=== PATIENT | male | born 1975 | race Caucasian/White ===

== ENCOUNTER 2019-04-18 01:07 | Emergency (ER) | payer MEDICARE, OTHER, SELFPAY ==
[2019-04-18 01:16] VITALS: BP 141/97; PULSE 63; RESP 18; TEMP 37.2; O2SAT 97; BMI 61.7
--- NOTE | 2019-04-18 01:28 | HMH.EDSKAF ---
ED Disposition Clinical Impression: Cellulitis Qualifiers: Site of cellulitis: extremity Site of cellulitis of extremity: lower extremity Laterality: left Qualified Code(s): L03.116 - Cellulitis of left lower limb Obesity Qualifiers: Obesity type: due to excess calories Obesity classification: adult class 3 (BMI >= 40) Serious obesity comorbidity presence: with serious comorbidity Body mass index: BMI 60.0-69.9 Qualified Code(s): E66.01 - Morbid (severe) obesity due to excess calories; Z68.44 - Body mass index (BMI) 60.0-69.9, adult Disposition: Home, Self-Care Condition on Discharge: Good Instructions: DI for Cellulitis -- Adult Additional Instructions: keep clean and see pcp for follow up Prescriptions: Mupirocin [Bactroban 2% Ointment 22gm tube] 1 applicatio TP BID #1 tube cephALEXin [Keflex 500mg Cap] 500 mg PO TID #30 cap Referrals: Mariam Ortega MD [Primary Care Provider] - - Critical Care Critical Care Time: No Attestation: On , the high probability of a clinically significant, sudden or life threatening deterioration of the following system(s) required my full and direct attention, intervention and personal management. The time I documented below is in addition to time spent performing reported procedures but includes the following listed in this critical care notation. Medical Decision Making - Medical Records Medical records reviewed: Yes: I reviewed the patient's medical records. - Michael Inquiry Pt receiving controlled substance: No Vital Signs: 04/18/19 01:16 Temperature 98.9 F Temperature Source Oral Pulse Rate [Right] 63 Respiratory Rate 18 Blood Pressure [Right Arm] 141/97 H Blood Pressure Mean [Right Arm] 111 Blood Pressure Source [Right Arm] Automatic Cuff Blood Pressure Position [Right Arm] Sitting 02 Sat by Pulse Oximetry 97 Oxygen Delivery Method Room Air Skin/Abscess/FB HPI - General Chief complaint: Extremity Problem,Nontraumatic Stated complaint: Splinter in left foot Time Seen by Provider: 04/18/19 01:28 Mode of Arrival: Ambulatory Source of Information: Patient, Medical Record Limitations: No Limitations Description of Symptoms (Recalled from ER Triage Doc. by RN): pt has an open area approx 0.25 mm on left medial foot, no forein objects noted - History of Present Illness HPI narrative: tender red area on lt foot -no def sphlinter known by pt MD complaint: other (small reddened area ) Tetanus up to date: yes Location: L foot Severity: moderate Associated symptoms: denies other symptoms Treatments prior to arrival: none - Related Data Home Medications Medication Instructions Recorded Confirmed Propranolol HCl [Propranolol HCl 160 mg PO DAILY 03/04/18 01/21/19 ER] Previous Rx's Medication Instructions Recorded Mupirocin [Bactroban 2% Ointment 1 applicatio TP BID #1 tube 04/18/19 22gm tube] cephALEXin [Keflex 500mg Cap] 500 mg PO TID #30 cap 04/18/19 Allergies Allergy/AdvReac Type Severity Reaction Status Date / Time guaifenesin [From Robitussin] Allergy Verified 01/14/19 04:33 pseudoephedrine Allergy Verified 01/14/19 04:33 [facility] History - Hepatitis A Screen Drug use history?: No High risk sexual behaviors?: No History of sexually transmitted infection?: No Currently employed?: No Childcare worker?: No Do you have indoor plumbing?: Yes Do you have electricity?: Yes Attestation statement:: This patient has been screened for Hepatitis A risk factors. I have reviewed the patient's past medical history: Yes Medical History: Denies:: Cancer, Diabetes Mellitus Type 1, Diabetes Mellitus Type 2, MRSA Other Medical History: Reports: Arthritis Amputation: No Fractures: No Comment: Vasectomy - Social History Smoking Status: Current every day smoker Tobacco Type: smokeless tobacco Alcohol Intake: never Alcohol Intake Frequency:: a few times a month Occupational Status: unemployed Household Members: sign
--- NOTE | 2019-04-18 01:32 | ED_ITS ---
ED Disposition Clinical Impression: Cellulitis Qualifiers: Site of cellulitis: extremity Site of cellulitis of extremity: lower extremity Laterality: left Qualified Code(s): L03.116 - Cellulitis of left lower limb Obesity Qualifiers: Obesity type: due to excess calories Obesity classification: adult class 3 (BMI >= 40) Serious obesity comorbidity presence: with serious comorbidity Body mass index: BMI 60.0-69.9 Qualified Code(s): E66.01 - Morbid (severe) obesity due to excess calories; Z68.44 - Body mass index (BMI) 60.0-69.9, adult Disposition: Home, Self-Care Condition on Discharge: Good Instructions: DI for Cellulitis -- Adult Additional Instructions: keep clean and see pcp for follow up Prescriptions: Mupirocin [Bactroban 2% Ointment 22gm tube] 1 applicatio TP BID #1 tube cephALEXin [Keflex 500mg Cap] 500 mg PO TID #30 cap Referrals: Mariam Ortega MD [Primary Care Provider] - - Critical Care Critical Care Time: No Attestation: On , the high probability of a clinically significant, sudden or life threatening deterioration of the following system(s) required my full and direct attention, intervention and personal management. The time I documented below is in addition to time spent performing reported procedures but includes the following listed in this critical care notation. Medical Decision Making - Medical Records Medical records reviewed: Yes: I reviewed the patient's medical records. - Michael Inquiry Pt receiving controlled substance: No Vital Signs: 04/18/19 01:16 Temperature 98.9 F Temperature Source Oral Pulse Rate [Right] 63 Respiratory Rate 18 Blood Pressure [Right Arm] 141/97 H Blood Pressure Mean [Right Arm] 111 Blood Pressure Source [Right Arm] Automatic Cuff Blood Pressure Position [Right Arm] Sitting 02 Sat by Pulse Oximetry 97 Oxygen Delivery Method Room Air Skin/Abscess/FB HPI - General Chief complaint: Extremity Problem,Nontraumatic Stated complaint: Splinter in left foot Time Seen by Provider: 04/18/19 01:28 Mode of Arrival: Ambulatory Source of Information: Patient, Medical Record Limitations: No Limitations Description of Symptoms (Recalled from ER Triage Doc. by RN): pt has an open area approx 0.25 mm on left medial foot, no forein objects noted - History of Present Illness HPI narrative: tender red area on lt foot -no def sphlinter known by pt MD complaint: other (small reddened area ) Tetanus up to date: yes Location: L foot Severity: moderate Associated symptoms: denies other symptoms Treatments prior to arrival: none - Related Data Home Medications Medication Instructions Recorded Confirmed Propranolol HCl [Propranolol HCl 160 mg PO DAILY 03/04/18 01/21/19 ER] Previous Rx's Medication Instructions Recorded Mupirocin [Bactroban 2% Ointment 1 applicatio TP BID #1 tube 04/18/19 22gm tube] cephALEXin [Keflex 500mg Cap] 500 mg PO TID #30 cap 04/18/19 Allergies Allergy/AdvReac Type Severity Reaction Status Date / Time guaifenesin [From Robitussin] Allergy Verified 01/14/19 04:33 pseudoephedrine Allergy Verified 01/14/19 04:33 [facility] History - Hepatitis A Screen
[2019-04-18 01:39] VITALS: BP 142/78; PULSE 63; RESP 18; TEMP 36.8; O2SAT 98
== END 2019-04-18 01:41 | disposition home or self-care (01) ==
PROVIDERS: Emergency Provider Emergency Medicine; PCP Internal Medicine
DX: L03.116 Cellulitis of left lower limb (principal); E66.01 Morbid (severe) obesity due to excess calories; Z68.44 Body mass index [BMI] 60.0-69.9, adult; F17.210 Nicotine dependence, cigarettes, uncomplicated
CPT/HCPCS: 99281

== ENCOUNTER → 2021-05-23 09:30 | Outpatient (POV) | payer MEDICARE, OTHER, SELFPAY | PROVIDERS: Visit Provider Otolaryngology | DX: Z00.00 Encounter for general adult medical examination without abnormal findings (principal) ==

== ENCOUNTER 2021-06-01 20:11 | Emergency (ER) | payer MEDICARE, OTHER, SELFPAY ==
[2021-06-01 20:26] VITALS: BP 165/100; PULSE 79; RESP 18; O2SAT 93; BMI 61.7
[2021-06-01 20:32] VITALS: BP 151/87; PULSE 81; RESP 22; O2SAT 99; BMI 61.5
--- NOTE | 2021-06-01 20:39 | XR_ITS ---
PROCEDURE INFORMATION: Exam: XR Left Tibia and Fibula Exam date and time: 06/01/2021 8:39 PM Age: 45 years old Clinical indication: Patient HX: Left lower leg pain for 4 days in an extremely large patient. TECHNIQUE: Imaging protocol: XR Left tibia and fibula. Views: 2 views. COMPARISON: CR ANKCMLT XR ankle LT min 3V 01/14/2019 4:37 AM FINDINGS: Bones/joints: Enthesophytes seen at the Achilles insertion. Mild osteophytosis in the knee, partially imaged. Slight subluxation at the tibiotalar joint on the view provided. Soft tissues: Normal. IMPRESSION: Slight subluxation at the tibiotalar joint. Recommend ankle series for better evaluation.
--- NOTE | 2021-06-01 20:46 | HMH.EDUTC ---
[facility] [place] Clinical Impression: Left leg pain Disposition: Home, Self-Care Condition on Discharge: Good Instructions: DI for Leg Pain Additional Instructions: *weight bearing as tolerated *RICE, Rest the extremity, Ice 15-20 minutes 3-4 times daily, Compress- wear the carlos wrap as discussed as much as possible to help reduce swelling and pain, Elevate the extremity when at rest *Carlos wrap is for support and help control swelling, use it except in the shower. Be sure that is not to tight but not to loose either *Elevate when resting *Ibuprofen every 6-8 hours as needed for pain an inflammation. If need something more can take Tylenol in between doses of Ibuprofen to help Immediately follow up with your family doctor for new or worsening of symptoms, or no noticeable improvement over the next 3-5 days Follow up with your Family Doctor for more extensive work up and evaluation and routine blood work like you should be having regularly to monitor your overall health Return if needed Straight to ER if any life threatening symptoms Referrals: Mariam Ortega MD [Primary Care Provider] - As needed Time of Disposition: 21:15 Medical Decision Making - Michael Inquiry Pt receiving controlled substance: No Michael was queried for this patient: No Vital Signs: 06/01/21 20:26 06/01/21 20:32 06/01/21 21:17 Temperature 98 F Pulse Rate 81 Pulse Rate [Right Brachial] 79 81 Respiratory Rate 18 22 18 Blood Pressure 151/87 H Blood Pressure [Right Arm] 165/100 H 151/87 H Blood Pressure Mean [Right Arm] 121 108 Blood Pressure Position [Right Arm] Sitting 02 Sat by Pulse Oximetry 93 L 99 Oxygen Delivery Method Room Air - Radiology Data #1 Image(s): Tib/Fib Image Reviewed: Yes I reviewed the patient's radiology image Preliminary Findings: No Fracture Seen IMPRESSION: Slight subluxation at the tibiotalar joint. Recommend ankle series for better evaluation. #2 Image(s): Ankle Image Reviewed: Yes I have reviewed radiologist's interpretation IMPRESSION: Normal alignment of the ankle mortise. Finding on prior was likely projectional. Medical Decision Narrative: Discussed with patient about out patient order for Venous Doppler and patient declined States that he does not have a history of DVT and he wanted to get it checked to make sure he didnt hurt it somehow and plans on calling his PCP in the morning for appointment Patient educated on importance on making sure to see PCP on regular bases for labs and health screening to monitor his health and patient verbalized understanding Patient still denies known injury states that pain in front of lower leg just started a couple days ago and hurts some with walking and some with rest [facility] [place] - General Stated complaint: numbness left leg Time Seen by Provider: 06/01/21 20:47 Mode of Arrival: Ambulatory Source of Information: Patient Limitations: No Limitations Description of Symptoms (Recalled from Triage Doc. by RN): pt c/o of pain, tingling and numbness down his L knee to tib/fib area. pt HEENT Symptoms (Recalled from RN notes): No Resp Symptoms (Recalled from RN notes): No Skin Symptoms (Recalled from RN notes): No MS Symptoms (Recalled from RN notes): Yes (L below the knee pain described as tooth ache ) Functional Status (Recalled from RN notes): na - History of Present Illness Provider Complaint: Patient states that for the last 3-4 days he has been having achy like pain in his left miguel area that is worse when he tries to lay down State that when he puts the leg up he has a achy like pain that feels like it jerks at times States that he is unsure if he may have done something to hurt it or not State that he wanted to come in and get it xrayed to make sure he didnt do something to hurt it States that he has been walking on it ok but still hurts on and off Denies history of DVT - Related Data Home Medications Medication Instructions Jeovany
[2021-06-01 21:17] VITALS: BP 151/87; PULSE 81; RESP 18; TEMP 36.6
--- NOTE | 2021-06-01 21:20 | XR_ITS ---
PROCEDURE INFORMATION: Exam: XR Left Ankle Exam date and time: 06/01/2021 9:20 PM Age: 45 years old Clinical indication: Ankle; Patient HX: Very large patient with left lower leg pain for 4 days. No known injury. ; Additional info: Recommended by radiologist TECHNIQUE: Imaging protocol: XR Left ankle. Views: 3 or more views. COMPARISON: CR ANKCMLT XR ankle LT min 3V 01/14/2019 4:37 AM FINDINGS: Bones/joints: Ankle mortise is well aligned. Mild degenerative changes noted. No fracture or malalignment. Enthesophytes seen at the Achilles attachment. Soft tissues: Mild soft tissue swelling IMPRESSION: Normal alignment of the ankle mortise. Finding on prior was likely projectional.
== END 2021-06-01 21:48 | disposition home or self-care (01) ==
PROVIDERS: Emergency Provider Nurse Practitioner; PCP Internal Medicine
DX: M79.662 Pain in left lower leg (principal)
CPT/HCPCS: G0463; 73590; 73610; 99202

== ENCOUNTER → 2021-06-20 11:00 | Outpatient (POV) | payer MEDICARE, OTHER, SELFPAY | PROVIDERS: Visit Provider Dermatology | DX: Z00.00 Encounter for general adult medical examination without abnormal findings (principal) ==

== ENCOUNTER 2021-08-24 13:54 | Emergency (ER) | payer MEDICARE, OTHER, SELFPAY ==
--- NOTE | 2021-08-24 14:43 | XR_ITS ---
PROCEDURE: XR CHEST 2V CLINICAL HISTORY: cough COMPARISON: CR [id number] XR chest portable from 12/19/2018 CR XR CHEST 2V from 06/22/2019 FINDINGS: The cardiomediastinal silhouette and pulmonary vascularity are within normal limits. The lungs are clear without infiltrates, suspicious nodules, or pleural effusions. No acute bony abnormalities. IMPRESSION: No acute findings. Dictated by: Simba Molina MD 08/24/2021 16:07 Simba Molina MD in OV 08/24/2021 16:07
[2021-08-24 14:45] VITALS: BP 147/83; PULSE 78; RESP 18; TEMP 37.1; O2SAT 93; BMI 73.9
--- NOTE | 2021-08-24 14:51 | HMH.EDUTC ---
[facility] Disposition Clinical Impression: Cough Disposition: Home, Self-Care Condition on Discharge: Good Instructions: Cough Additional Instructions: No sign of a bacterial infection. Likely viral. Viruses can take 7-14 days to run their course. Nasal saline and bulb syringe or nose Tamela to remove nasal drainage to help with nasal congestion. Hard to eat, drink, sleep with nasal congestion so important to keep this cleaned out. Monitor temp. Tylenol or Motrin as needed for pain or fever Encourage fluids, water, Gatorade, Powerade, Pedialyte if infant/toddler/child Warm salt water gargles Warm fluids Sore throat lozenges Sleep elevated Humidifier/vaporizer Follow-up immediately for new or worsening symptoms or no noticeable improvement over the next 48-72 hours. Referrals: Provider,Referral, MD [Primary Care Provider] - Time of Disposition: 15:20 Medical Decision Making - Michael Inquiry Pt receiving controlled substance: No Vital Signs: 08/24/21 14:45 Temperature 98.8 F Temperature Source Oral Pulse Rate [Left Radial] 78 Respiratory Rate 18 Blood Pressure [Left Arm] 147/83 H Blood Pressure Mean [Left Arm] 104 Blood Pressure Source [Left Arm] Automatic Cuff Blood Pressure Position [Left Arm] Sitting 02 Sat by Pulse Oximetry 93 L Oxygen Delivery Method Room Air Orders (Tests/Meds): ORDERS Category Date Time Status Chest XR 2 view (NOT portable) [XR chest 2V] Stat Exams 08/24/21 14:43 Taken - Radiology Data #1 Image(s): Chest Image Reviewed: Yes I reviewed the patient's radiology image Preliminary Findings: Normal/NAD [facility] HPI - General Chief complaint: [facility] Stated complaint: wants lungs checked for pnuemomia Time Seen by Provider: 08/24/21 14:51 Mode of Arrival: Ambulatory Source of Information: Patient Limitations: No Limitations Description of Symptoms (Recalled from Triage Doc. by RN): Pt states When i use my ceiling fan, my lungs hurt. When I don't use it, they don't. I want to make sure I don't have walking pneumonia . HEENT Symptoms (Recalled from RN notes): No Resp Symptoms (Recalled from RN notes): Yes (wants checked for pneumonia) Skin Symptoms (Recalled from RN notes): No MS Symptoms (Recalled from RN notes): No Functional Status (Recalled from RN notes): n/a - History of Present Illness Provider Complaint: 46 yr old male presnets for xray to r/o walking pneumonia. pt states dry cough. pt states his lungs hurt when he uses his celing fan - Related Data Home Medications Medication Instructions Recorded Confirmed Propranolol HCl [Propranolol HCl 160 mg PO DAILY 03/04/18 06/22/19 ER] Previous Rx's Medication Instructions Recorded ondansetron HCL [Zofran 8mg Tab] 8 mg PO TID 3 Days #10 tab 08/04/19 Allergies Allergy/AdvReac Type Severity Reaction Status Date / Time guaifenesin [From Robitussin] Allergy Verified 06/22/19 22:15 pseudoephedrine Allergy Verified 06/22/19 22:15 - Worker's Comp Is this a Worker's Comp case?: No [facility] History - Hepatitis A Screen Drug use history?: No High risk sexual behaviors?: No History of sexually transmitted infection?: No Currently employed?: No Childcare worker?: No Do you have indoor plumbing?: Yes Do you have electricity?: Yes Attestation statement:: This patient has been screened for Hepatitis A risk factors. I have reviewed the patient's past medical history: Yes Medical History: Denies:: Cancer, Diabetes Mellitus Type 1, Diabetes Mellitus Type 2, MRSA Other Medical History: Reports: Arthritis Amputation: No Fractures: No Comment: Vasectomy - Social History Smoking Status: Never smoker Tobacco Type: smokeless tobacco Alcohol Intake: current Alcohol Intake Frequency:: a few times a month Occupational Status: unemployed, disabled Housing: house Household Members: significant other Family Hx:: Cancer ROS Obtained: Yes Systems reviewed as appropriate & no additional co
[2021-08-24 15:30] VITALS: BP 147/83; PULSE 78; RESP 18; TEMP 37.1; O2SAT 93
== END 2021-08-24 15:30 | disposition home or self-care (01) ==
PROVIDERS: Emergency Provider Nurse Practitioner Family
DX: R07.89 Other chest pain (principal); R05.8 Other specified cough
CPT/HCPCS: G0463; 71046; 99202

== ENCOUNTER → 2022-04-17 08:19 | Outpatient (CLI) | payer MEDICARE, OTHER, SELFPAY ==
--- NOTE | 2022-04-17 08:24 | XR_ITS ---
FINAL REPORT CLINICAL HISTORY: Nasal problems..broke nose 15 years ago FINDINGS: FACIAL BONES Three views were obtained. There is no acute fracture or dislocation. No soft tissue abnormality is identified. IMPRESSION: No acute process. Reviewed, Interpreted and Dictated by Roque Tovar III, MD Transcribed by Funmi Warren Authenticated and [facility]
[2022-04-17 09:20] LABS: Basophils # 0.1 K/mm3 (0-0.2); Basophils % 1.1 % (0.1-2.0); Eosinophils # 0.4 K/mm3 (0.0-0.4); Hematocrit 50.2 % (42.0-52.0); Hemoglobin 16.8 g/dL (14.1-18.0); Lymphocytes # 2.2 K/mm3 (0.7-4.5); Mean Corpuscular HGB Conc 33.5 g/dL (31.8-35.4); Mean Corpuscular Hemoglobin 30.4 pg (27.0-31.2); Mean Corpuscular Volume 90.8 fl (80-94); Mean Platelet Volume 7.7 fl (7.4-10.4); Monocytes # 0.6 K/mm3 (0.1-1.0); Monocytes % 6.6 % (1.7-9.3); Neutrophils # 5.5 K/mm3 (1.8-7.8); Neutrophils % 63.3 % (37.0-80.0); Platelet Count 282 K/mm3 (142-424); Red Blood Count 5.53 M/mm3 (4.60-6.20); Red Cell Distribution Width 14.5 % (11.5-17.5); White Blood Count 8.7 K/mm3 (4.8-10.8)
[2022-04-17 10:07] LABS: Chloride 102 mmol/L (98-107); Potassium 4.3 mmoL/L (3.5-5.1); Sodium 138 mmol/L (136-145)
[2022-04-17 10:09] LABS: Blood Urea Nitrogen 12 mg/dl (9-20); Estimated Glomerular Filt Rate 80 ml/min (>60); GFR (African American) 97 ML/MIN (>60)
[2022-04-17 10:10] LABS: Alanine Aminotransferase 35 U/L (12-78); Albumin/Globulin Ratio 1.3 (1.1-1.8); Alkaline Phosphatase 105 U/L (38-126); Anion Gap 10.3 mEq/L (5-15); Aspartate Amino Transferase 41 U/L (17-59); Bilirubin,Total 0.6 mg/dl (0.2-1.3); Carbon Dioxide 30 mmol/L (22.0-30.0); Cholesterol 171 mg/dl (140-200); Globulin 3.1 g/dL (1.3-3.2); Glucose 135 mg/dl (74-100); Total Protein,Serum 7.1 g/dl (6.3-8.2); Triglycerides 139 mg/dl (30-150); VLDL Cholesterol 28 mg/dL (0-40)
[2022-04-17 10:11] LABS: Chol/HDL Ratio 5.3 (1-3.5); HDL Cholesterol 32 mg/dl (40-60)
[2022-04-17 10:21] LABS: Direct LDL Cholesterol 107.43 mg/dL (100-129)
[2022-04-17 10:28] LABS: T4 (Thyroxine) 9.8 ug/dl (5.53-11.0)
[2022-04-17 10:41] LABS: Thyroid Stimulating Hormone 3.57 uIU/mL (0.465-4.68)
[2022-04-17 10:44] LABS: 25-OH Vitamin D, Total 14.3 ng/mL (30-100)
== END ==
PROVIDERS: PCP Nurse Practitioner Family; Visit Provider Nurse Practitioner Family
DX: M95.0 Acquired deformity of nose (principal); E66.01 Morbid (severe) obesity due to excess calories; N18.9 Chronic kidney disease, unspecified; R60.9 Edema, unspecified; Z68.44 Body mass index [BMI] 60.0-69.9, adult; E55.9 Vitamin D deficiency, unspecified
CPT/HCPCS: 70150; 80053; 80061; 82306; 84436; 84443; 85025

== ENCOUNTER 2022-08-15 12:54 | Emergency (ER) | payer MEDICARE, OTHER, SELFPAY ==
[2022-08-15 12:54] VITALS: BP 124/71; PULSE 76; RESP 18; TEMP 36.7; O2SAT 95; BMI 74.6
--- NOTE | 2022-08-15 12:55 | XR_ITS ---
FINAL REPORT CLINICAL HISTORY: rib pain COMPARISON: August 24, 2021 FINDINGS: Two views of the chest were obtained. The heart size and pulmonary vascularity are within normal limits. The mediastinum is normal. No acute pulmonary abnormality is identified. There is no pneumothorax. The bony thorax is intact. IMPRESSION: No active cardiopulmonary disease. Reviewed, Interpreted and Dictated by Roque Tovar III, MD Transcribed by Nancy Taylor Authenticated and [facility]
--- NOTE | 2022-08-15 12:55 | HMH.EDGENADL ---
Discharge Plan Disposition Patient Disposition: Home, Self-Care Condition: Good Prescriptions Prescriptions: New ibuprofen 600 mg tablet 600 mg PO Q6H PRN (Reason: pain) Qty: 30 0RF No Action triamcinolone acetonide 0.1 % cream 1 applic topical BID Qty: 15 0RF hydrochlorothiazide 25 mg tablet 25 mg PO DAILY Qty: 30 2RF fluticasone propionate [Flonase Allergy Relief] 50 mcg/actuation spray,suspension 1 spray NS BID Qty: 16 3RF Rx Instructions: administer into each nostril azelastine 205.5 mcg (0.15 %) spray,non-aerosol 1 spray NS BID Qty: 30 3RF Rx Instructions: administer into each nostril cholecalciferol (vitamin D3) 1,250 mcg (50,000 unit) tablet 1,250 mcg PO WEEKLY Qty: 7 2RF cholecalciferol (vitamin D3) 50 mcg (2,000 unit) capsule 50 mcg PO DAILY Qty: 30 4RF Referrals Follow up/Referrals: Ranjit Ibarra APRN [Primary Care Provider] - See instructions Clinical Impressions Clinical Impression: Acute chest wall pain Instructions Patient Instructions: DI for Costochondritis, Ibuprofen Discharge ED Provider: Matthew [facility] Adult HPI General Chief complaint: PAIN Stated complaint: Lt rib pain Time Seen by Provider: 08/15/22 12:55 History of Present Illness HPI narrative: 47-year-old male presents with left chest wall pain after stretching as he got up from bed. Stated he felt a pop and had pain subsequently, denies any shortness of breath, denies any other neck or back pain, nausea, vomiting, diaphoresis or any other symptoms. Did not attempt any treatment at home for the symptoms thus far. He states he presented to the emergency department to make sure he did not break a rib Related Data Previous Rx's Medication Instructions Recorded cholecalciferol (vitamin D3) 1,250 1,250 mcg PO WEEKLY #7 tabs 04/18/22 mcg (50,000 unit) tablet cholecalciferol (vitamin D3) 50 50 mcg PO DAILY #30 caps 04/18/22 mcg (2,000 unit) capsule azelastine 205.5 mcg (0.15 %) 1 spray intranasal BID #30 mL 05/01/22 nasal spray fluticasone propionate 50 1 spray intranasal BID #16 grams 05/01/22 mcg/actuation nasal spray,suspension (Flonase Allergy Relief) hydrochlorothiazide 25 mg tablet 25 mg PO DAILY #30 tabs 08/08/22 triamcinolone acetonide 0.1 % 1 applic topical BID #15 grams 08/08/22 topical cream ibuprofen 600 mg tablet 600 mg PO Q6H PRN pain #30 tabs 08/15/22 Allergies Allergy/AdvReac Type Severity Reaction Status Date / Time guaifenesin [From Robitussin] Allergy Verified 08/08/22 14:41 pseudoephedrine Allergy Verified 08/08/22 14:41 PFSH PFSH Family History Grandfather Cancer Father Cancer Social History Smoking Status: Never smoker alcohol intake: current substance use type: denies use current occupational status: unemployed and disabled Travel in the last 8 weeks: None household members: significant other housing: house ROS Obtained: Yes All systems reviewed & no additional complaints except as documented Physical Exam General General appearance: alert and in no apparent distress Head Head exam: atraumatic, normocephalic and normal inspection Eye Eye exam: Present normal appearance, PERRL and EOMI ENT ENT exam: Present normal exam, normal oropharynx, mucous membranes moist, TM's normal bilaterally and normal external ear exam Neck Neck exam: Present normal inspection, full ROM and trachea midline; Absent meningismus or lymphadenopathy Chest Chest inspection: Present normal inspection, symmetric chest wall rise and tenderness (left lateral chest wall) Respiratory Respiratory exam: Present normal lung sounds bilaterally; Absent respiratory distress Cardiovascular Cardiovascular exam: Present regular rate and normal rhythm; Absent JVD Abdominal Exam Abdominal exam: Present soft and normal bowel sounds; Absen
[2022-08-15 13:00] VITALS: BP 122/71; PULSE 69; RESP 20; O2SAT 94
[2022-08-15 13:30] VITALS: BP 126/95; PULSE 71; RESP 21; O2SAT 94
[2022-08-15 14:30] VITALS: BP 125/68; PULSE 79; RESP 16; TEMP 36.8; O2SAT 97
== END 2022-08-15 14:30 | disposition home or self-care (01) ==
PROVIDERS: Emergency Provider Emergency Medicine; PCP Nurse Practitioner Family
DX: R07.81 Pleurodynia (principal); Z79.1 Long term (current) use of non-steroidal anti-inflammatories (NSAID); Z79.51 Long term (current) use of inhaled steroids; Z79.899 Other long term (current) drug therapy; Z80.9 Family history of malignant neoplasm, unspecified
CPT/HCPCS: 71046; 99283

== ENCOUNTER 2022-09-02 17:26 | Emergency (ER) | payer MEDICARE, OTHER, SELFPAY ==
[2022-09-02 17:28] VITALS: BP 188/110; PULSE 81; RESP 18; TEMP 36.8; O2SAT 92; BMI 74.6
--- NOTE | 2022-09-02 17:51 | HMH.EDGENADL ---
Discharge Plan Disposition Patient Disposition: Home, Self-Care Condition: Good Chief Complaint: PAIN Prescriptions Prescriptions: No Action triamcinolone acetonide 0.1 % cream 1 applic topical BID Qty: 15 0RF hydrochlorothiazide 25 mg tablet 25 mg PO DAILY Qty: 30 2RF fluticasone propionate [Flonase Allergy Relief] 50 mcg/actuation spray,suspension 1 spray NS BID Qty: 16 3RF Rx Instructions: administer into each nostril azelastine 205.5 mcg (0.15 %) spray,non-aerosol 1 spray NS BID Qty: 30 3RF Rx Instructions: administer into each nostril cholecalciferol (vitamin D3) 1,250 mcg (50,000 unit) tablet 1,250 mcg PO WEEKLY Qty: 7 2RF cholecalciferol (vitamin D3) 50 mcg (2,000 unit) capsule 50 mcg PO DAILY Qty: 30 4RF ibuprofen 600 mg tablet 600 mg PO Q6H PRN (Reason: pain) Qty: 30 0RF Referrals Follow up/Referrals: Ranjit Ibarra APRN [Primary Care Provider] - See instructions Activity Restrictions/Add. Instructions Additional Instructions/Restrictions: Return to the hospital tomorrow to have a Doppler ultrasound of your right leg. You will be called with appointment time. Take Xarelto 15 mg twice a day until Doppler performed on your leg. You may stop the Xarelto if the Doppler is negative. Follow-up with your primary care provider for further care. Call for appointment. Clinical Impressions Clinical Impression: Pain of right calf Discharge ED Provider: Rodolfo Alatorre Adult HPI General Chief complaint: PAIN Stated complaint: RT lower leg pain Time Seen by Provider: 09/02/22 17:40 Mode of Arrival: Ambulatory Limitations: No Limitations Description of Symptoms (Recalled from ER Triage Doc. by RN): Pt c/o RLE pain, pt report pain began today while laying in bed. Reports pain went from his knee to his foot. Pt states no known injury. Pt reports pain worsens when trying to bear weight. History of Present Illness HPI narrative: Patient states that 5 minutes before coming to the emergency department he was laying in bed when he developed a sharp pain in his lateral right calf. He was concerned about a blood clot and therefore came to the emergency department. He has no prior history of DVT. No chest pain or shortness of breath. He denies any injury to his leg or calf. He states that he did not feel like a charley horse or muscle cramp, just sharp pain. No swelling. Related Data Previous Rx's Medication Instructions Recorded cholecalciferol (vitamin D3) 1,250 1,250 mcg PO WEEKLY #7 tabs 04/18/22 mcg (50,000 unit) tablet cholecalciferol (vitamin D3) 50 50 mcg PO DAILY #30 caps 04/18/22 mcg (2,000 unit) capsule azelastine 205.5 mcg (0.15 %) 1 spray intranasal BID #30 mL 05/01/22 nasal spray fluticasone propionate 50 1 spray intranasal BID #16 grams 05/01/22 mcg/actuation nasal spray,suspension (Flonase Allergy Relief) hydrochlorothiazide 25 mg tablet 25 mg PO DAILY #30 tabs 08/08/22 triamcinolone acetonide 0.1 % 1 applic topical BID #15 grams 08/08/22 topical cream ibuprofen 600 mg tablet 600 mg PO Q6H PRN pain #30 tabs 08/15/22 Allergies Allergy/AdvReac Type Severity Reaction Status Date / Time guaifenesin [From Robitussin] Allergy Verified 08/08/22 14:41 pseudoephedrine Allergy Verified 08/08/22 14:41 PFSH PFSH Family History Grandfather Cancer Father Cancer Social History Smoking Status: Never smoker alcohol intake: current substance use type: denies use current occupational status: unemployed and disabled Travel in the last 8 weeks: None household members: significant other housing: house ROS Obtained: Yes Systems reviewed as appropriate & no additional complaints except as documented Constitutional Constitutional: Denies fever(s) and Denies weakness Cardiovascular Cardiovascular: Denies
--- NOTE | 2022-09-02 17:58 | PC.NURSE ---
LAB CALLED FOR BLOOD DRAW
[2022-09-02 18:51] LABS: Basophils # 0.1 K/mm3 (0-0.2); Eosinophils # 0.4 K/mm3 (0.0-0.4); Eosinophils % 4.6 % (0.1-12.0); Hematocrit 50.5 % (42.0-52.0); Hemoglobin 15.8 g/dL (14.1-18.0); Lymphocytes # 1.5 K/mm3 (0.7-4.5); Lymphocytes % 19.2 % (10-50); Mean Corpuscular HGB Conc 31.3 g/dL (31.8-35.4); Mean Corpuscular Hemoglobin 28.7 pg (27.0-31.2); Mean Corpuscular Volume 91.8 fl (80-94); Mean Platelet Volume 7.5 fl (7.4-10.4); Monocytes # 0.5 K/mm3 (0.1-1.0); Neutrophils # 5.6 K/mm3 (1.8-7.8); Neutrophils % 69.3 % (37.0-80.0); Platelet Count 240 K/mm3 (142-424); Red Blood Count 5.49 M/mm3 (4.60-6.20); Red Cell Distribution Width 14.5 % (11.5-17.5)
[2022-09-02 19:01] LABS: Anion Gap 10.9 mEq/L (5-15); Blood Urea Nitrogen 14 mg/dl (9-20); Calcium 8.1 mg/dl (8.4-10.2); Carbon Dioxide 35 mmol/L (22.0-30.0); Chloride 98 mmol/L (98-107); Creatinine Clearance Estimated 105 mL/min (50-200); Estimated Glomerular Filt Rate 90 ml/min (>60); GFR (African American) 109 ML/MIN (>60); Glucose 119 mg/dl (74-100); Potassium 3.9 mmoL/L (3.5-5.1); Sodium 140 mmol/L (136-145)
[2022-09-02 19:06] LABS: D-Dimer 0.79 ug/mL (0.0-0.5)
--- NOTE | 2022-09-02 19:20 | PC.NURSE ---
report called to olivia de luna
--- NOTE | 2022-09-02 19:24 | PC.NURSE ---
Rechecked pt condition. No needs or complaints voiced.
[2022-09-02 20:13] VITALS: BP 179/91; PULSE 79; RESP 18; TEMP 36.8; O2SAT 94
== END 2022-09-02 20:14 | disposition home or self-care (01) ==
PROVIDERS: Emergency Provider Emergency Medicine; PCP Nurse Practitioner Family
DX: M79.661 Pain in right lower leg (principal); Z79.899 Other long term (current) drug therapy; Z88.8 Allergy status to other drugs, medicaments and biological substances; Z80.9 Family history of malignant neoplasm, unspecified
CPT/HCPCS: 80048; 85025; 85378; 99282

== ENCOUNTER → 2022-09-03 09:57 | Outpatient (CLI) | payer MEDICARE, OTHER, SELFPAY ==
--- NOTE | 2022-09-03 | CA_ITS ---
FINAL REPORT TECHNIQUE: Color Doppler, duplex Doppler and compression sonography of the right lower extremity venous system was performed. CLINICAL HISTORY: Leg pain lateral side of right leg. Limited exam due to body habitus. 5'10 520lbs. FINDINGS: The exam is limited secondary to patient body habitus. The great saphenous, popliteal, posterior tibial and peroneal veins appear negative. IMPRESSION: No evidence of deep venous thrombosis in the visualized veins of the right lower extremity. Reviewed, Interpreted and Dictated by Roque Tovar III, MD Transcribed by Nancy Taylor Authenticated and [facility]
== END ==
PROVIDERS: PCP Emergency Medicine; Visit Provider Nurse Practitioner Family
DX: M79.661 Pain in right lower leg (principal)
CPT/HCPCS: 93971

== ENCOUNTER 2022-09-10 17:10 | Emergency (ER) | payer MEDICARE, OTHER, SELFPAY ==
[2022-09-10 17:10] VITALS: BP 125/78; PULSE 84; RESP 16; TEMP 36.8; O2SAT 93; BMI 74.6
--- NOTE | 2022-09-10 17:25 | XR_ITS ---
PROCEDURE INFORMATION: Exam: XR Chest Exam date and time: 09/10/2022 5:42 PM Age: 47 years old Clinical indication: Shortness of breath; Additional info: Sob/cp TECHNIQUE: Imaging protocol: Radiologic exam of the chest. Views: 1 view. COMPARISON: CR XR CHEST 2V 08/15/2022 1:25 PM FINDINGS: Lungs: No evidence of pneumonia or interstitial edema. Pleural spaces: Unremarkable. No pleural effusion. No pneumothorax. Heart/Mediastinum: Cardiomegaly Bones/joints: Unremarkable. IMPRESSION: No evidence of pneumonia or interstitial edema.
--- NOTE | 2022-09-10 17:25 | HMH.EDGENADL ---
Discharge Plan Disposition Patient Disposition: Home, Self-Care Condition: Good Prescriptions Prescriptions: No Action triamcinolone acetonide 0.1 % cream 1 applic topical BID Qty: 15 0RF hydrochlorothiazide 25 mg tablet 25 mg PO DAILY Qty: 30 2RF fluticasone propionate [Flonase Allergy Relief] 50 mcg/actuation spray,suspension 1 spray NS BID Qty: 16 3RF Rx Instructions: administer into each nostril azelastine 205.5 mcg (0.15 %) spray,non-aerosol 1 spray NS BID Qty: 30 3RF Rx Instructions: administer into each nostril cholecalciferol (vitamin D3) 1,250 mcg (50,000 unit) tablet 1,250 mcg PO WEEKLY Qty: 7 2RF cholecalciferol (vitamin D3) 50 mcg (2,000 unit) capsule 50 mcg PO DAILY Qty: 30 4RF ibuprofen 600 mg tablet 600 mg PO Q6H PRN (Reason: pain) Qty: 30 0RF Referrals Follow up/Referrals: Ranjit Ibarra APRN [Primary Care Provider] - See instructions Clinical Impressions Clinical Impression: Acute dyspnea Instructions Patient Instructions: DI for Shortness of Breath Discharge ED Provider: Matthew Marina General Adult HPI General Chief complaint: Weakness Stated complaint: weakness Time Seen by Provider: 09/10/22 17:20 Mode of Arrival: EMS Limitations: No Limitations Description of Symptoms (Recalled from ER Triage Doc. by RN): PT REPORTS BEING WEAK AND TIRED MORE THAN USUAL History of Present Illness HPI narrative: 47-year-old male with history obstructive sleep apnea, morbid obesity, presents via EMS with complaint of general weakness, more tired than usual. He was noted to be hypoxic placed on supplemental O2, is around 89% on room air. Denies being on oxygen normally, does state he supposed to be on CPAP however it comes off of his face because he sleeps crazy. Denies any cough, fever, chills, chest pain, abdominal pain, nausea, vomiting, diarrhea, known sick contacts or any other symptoms Related Data Previous Rx's Medication Instructions Recorded cholecalciferol (vitamin D3) 1,250 1,250 mcg PO WEEKLY #7 tabs 04/18/22 mcg (50,000 unit) tablet cholecalciferol (vitamin D3) 50 50 mcg PO DAILY #30 caps 04/18/22 mcg (2,000 unit) capsule azelastine 205.5 mcg (0.15 %) 1 spray intranasal BID #30 mL 05/01/22 nasal spray fluticasone propionate 50 1 spray intranasal BID #16 grams 05/01/22 mcg/actuation nasal spray,suspension (Flonase Allergy Relief) hydrochlorothiazide 25 mg tablet 25 mg PO DAILY #30 tabs 08/08/22 triamcinolone acetonide 0.1 % 1 applic topical BID #15 grams 08/08/22 topical cream ibuprofen 600 mg tablet 600 mg PO Q6H PRN pain #30 tabs 08/15/22 Allergies Allergy/AdvReac Type Severity Reaction Status Date / Time guaifenesin [From Robitussin] Allergy Verified 08/08/22 14:41 pseudoephedrine Allergy Verified 08/08/22 14:41 PFSH PFSH Family History Grandfather Cancer Father Cancer Social History Smoking Status: Never smoker alcohol intake: current substance use type: denies use current occupational status: unemployed and disabled Travel in the last 8 weeks: None household members: significant other housing: house ROS Obtained: Yes Systems reviewed as appropriate & no additional complaints except as documented Constitutional Constitutional: Reports system reviewed and no additional complaints, except as documented Eyes Eyes: Reports system reviewed and no additional complaints, except as documented ENT Ears, Nose, Mouth, and Throat: Reports system reviewed and no additional complaints, except as documented Cardiovascular Cardiovascular: Reports system reviewed and no additional complaints, except as documented Respiratory Respiratory: Reports system reviewed and no additional complaints, except as documented Gastrointestinal Gastrointestingal: Reports system reviewed and no additional complaints
[2022-09-10 17:36] LABS: Alanine Aminotransferase 33 U/L (12-78); Albumin Level 3.9 g/dl (3.5-5.0); Albumin/Globulin Ratio 1.2 (1.1-1.8); Alkaline Phosphatase 120 U/L (38-126); Anion Gap 12.5 mEq/L (5-15); Aspartate Amino Transferase 37 U/L (17-59); Bilirubin,Total 0.5 mg/dl (0.2-1.3); Blood Urea Nitrogen 16 mg/dl (9-20); Calcium 9.2 mg/dl (8.4-10.2); Carbon Dioxide 34 mmol/L (22.0-30.0); Chloride 98 mmol/L (98-107); Creatinine Clearance Estimated 105 mL/min (50-200); Estimated Glomerular Filt Rate 90 ml/min (>60); GFR (African American) 109 ML/MIN (>60); Globulin 3.2 g/dL (1.3-3.2); Glucose 123 mg/dl (74-100); Magnesium 1.7 mg/dl (1.6-2.3); Potassium 4.5 mmoL/L (3.5-5.1); Sodium 140 mmol/L (136-145); Total Protein,Serum 7.1 g/dl (6.3-8.2)
--- NOTE | 2022-09-10 17:45 | ECG_ITS ---
APPROVED REPORT Exam: Resting ECG HR:70 bpm ECG Measurements Heart Rate 70 AXES MO 187 P 58 QRSd 102 QRS 29 QT 413 T 50 QTc 434 Conclusion SINUS RHYTHM NORMAL ECG UNCONFIRMED REPORT Electronically signed by : Nirav Quintanilla MD 09/11/2022 18:09:49
[2022-09-10 17:53] LABS: Troponin I 0.01 ng/ml (0.00-0.034)
[2022-09-10 17:53] LABS: Coronavirus 19, PCR Not Detected (NotDetected); Influenza A, PCR Not Detected (NotDetected); Influenza B, PCR Not Detected (NotDetected)
[2022-09-10 17:59] VITALS: BP 127/85; PULSE 74; RESP 24
[2022-09-10 18:01] VITALS: BP 144/95; PULSE 64; RESP 23; O2SAT 92
[2022-09-10 18:09] LABS: VBG Oxygen Saturation 96.5 % (50-70); VBG PCO2 54.5 mmol/L (35-51); VBG PH 7.33 mmol/L (7.31-7.41); VBG PO2 89.4 mmol/L (28-40); VBG Total CO2 29.6 mmol/L (23-27)
[2022-09-10 18:13] LABS: MANUAL DIFFERENTIAL MANUAL DIFFERENTIAL (MANUAL DIFF)
[2022-09-10 18:49] LABS: Basophils # 0.1 K/mm3 (0-0.2); Basophils % 0.7 % (0.1-2.0); Eosinophils # 0.3 K/mm3 (0.0-0.4); Eosinophils % 4.3 % (0.1-12.0); Hematocrit 49.7 % (42.0-52.0); Hemoglobin 15.3 g/dL (14.1-18.0); Lymphocytes # 1.4 K/mm3 (0.7-4.5); Lymphocytes % 18.5 % (10-50); Mean Corpuscular HGB Conc 30.8 g/dL (31.8-35.4); Mean Corpuscular Hemoglobin 28.5 pg (27.0-31.2); Mean Corpuscular Volume 92.8 fl (80-94); Mean Platelet Volume 7.2 fl (7.4-10.4); Monocytes # 0.5 K/mm3 (0.1-1.0); Monocytes % 6.9 % (1.7-9.3); Neutrophils # 5.2 K/mm3 (1.8-7.8); Neutrophils % 69.6 % (37.0-80.0); Platelet Count 259 K/mm3 (142-424); Red Blood Count 5.36 M/mm3 (4.60-6.20); Red Cell Distribution Width 13.7 % (11.5-17.5); White Blood Count 7.5 K/mm3 (4.8-10.8)
[2022-09-10 19:04] LABS: Eosinophils % 8 % (0-3); Lymphocytes % 20 % (10-50); Monocytes % 7 % (2-9); Neutrophils % 65 % (42-76); Platelet Estimate Normal; RBC Morphology Normal; Total Cells Counted 100
[2022-09-10 19:09] VITALS: BP 129/88; PULSE 79; RESP 18; TEMP 36.8; O2SAT 95
== END 2022-09-10 19:11 | disposition home or self-care (01) ==
PROVIDERS: Emergency Provider Emergency Medicine; PCP Nurse Practitioner Family
DX: R06.00 Dyspnea, unspecified (principal); Z80.9 Family history of malignant neoplasm, unspecified; G47.33 Obstructive sleep apnea (adult) (pediatric); E66.9 Obesity, unspecified; Z88.8 Allergy status to other drugs, medicaments and biological substances; Z68.45 Body mass index [BMI] 70 or greater, adult; I10 Essential (primary) hypertension; N18.9 Chronic kidney disease, unspecified
CPT/HCPCS: 71045; 80053; 82803; 83735; 84484; 85007; 85025; 93005; 99285; C9803; U0003; U0005

== ENCOUNTER 2023-03-03 20:07 | Emergency (ER) | payer MEDICARE, OTHER, SELFPAY ==
[2023-03-03] VITALS (7 sets, daily range): BP systolic 112–225; BP diastolic 71–161; PULSE 61–85; RESP 20; TEMP 36.5; O2SAT 91–98; BMI 57.4
--- NOTE | 2023-03-03 20:05 | ECG_ITS ---
APPROVED REPORT Exam: Resting ECG HR:77 bpm ECG Measurements Heart Rate 77 AXES TX 181 P 72 QRSd 121 QRS 35 QT 410 T 70 QTc 442 Conclusion SINUS RHYTHM MODERATE INTRAVENTRICULAR CONDUCTION DELAY [110+ ms QRS DURATION] BORDERLINE ECG UNCONFIRMED REPORT Electronically signed by : Nirav Quintanilla MD 03/04/2023 20:15:12
--- NOTE | 2023-03-03 20:38 | XR_ITS ---
PROCEDURE INFORMATION: Exam: XR Chest Exam date and time: 03/03/2023 9:10 PM Age: 47 years old Clinical indication: Pain; Chest pressure; Additional info: Chest pain TECHNIQUE: Imaging protocol: Radiologic exam of the chest. Views: 1 view. COMPARISON: CR XR CHEST PORTABLE 09/10/2022 5:42 PM FINDINGS: Lungs: Coarse interstitial lung markings likely chronic. No consolidation. Pleural spaces: Unremarkable. No pleural effusion. No pneumothorax. Heart/Mediastinum: Unremarkable. No cardiomegaly. Bones/joints: Unremarkable. IMPRESSION: No acute findings.
--- NOTE | 2023-03-03 21:55 | PC.NURSE ---
Pt O2 sat dropped to 82 while sleeping. 2LPM nasal cannula applied per Dr. Alarcon
[2023-03-03 22:04] LABS: Chloride 103 mmol/L (98-107); Sodium 138 mmol/L (136-145)
[2023-03-03 22:05] LABS: Basophils # 0.1 K/mm3 (0-0.2); Basophils % 0.6 % (0.1-2.0); Eosinophils # 0.3 K/mm3 (0.0-0.4); Eosinophils % 3.3 % (0.1-12.0); Hematocrit 47.8 % (42.0-52.0); Hemoglobin 15.6 g/dL (14.1-18.0); Lymphocytes # 1.6 K/mm3 (0.7-4.5); Lymphocytes % 17.5 % (10-50); Mean Corpuscular HGB Conc 32.6 g/dL (31.8-35.4); Mean Corpuscular Hemoglobin 28.9 pg (27.0-31.2); Mean Corpuscular Volume 88.7 fl (80-94); Mean Platelet Volume 7.2 fl (7.4-10.4); Monocytes # 0.5 K/mm3 (0.1-1.0); Monocytes % 5.3 % (1.7-9.3); Neutrophils # 6.8 K/mm3 (1.8-7.8); Neutrophils % 73.3 % (37.0-80.0); Platelet Count 227 K/mm3 (142-424); Potassium 3.9 mmoL/L (3.5-5.1); Red Blood Count 5.39 M/mm3 (4.60-6.20); Red Cell Distribution Width 14.3 % (11.5-17.5); White Blood Count 9.2 K/mm3 (4.8-10.8)
[2023-03-03 22:07] LABS: Alanine Aminotransferase 28 U/L (12-78); Albumin Level 3.4 g/dl (3.5-5.0); Alkaline Phosphatase 83 U/L (38-126); Anion Gap 8.9 mEq/L (5-15); Aspartate Amino Transferase 29 U/L (17-59); Bilirubin,Total 0.5 mg/dl (0.2-1.3); Blood Urea Nitrogen 20 mg/dl (9-20); Carbon Dioxide 30 mmol/L (22.0-30.0); Creatinine Clearance Estimated 86 mL/min (50-200); Estimated Glomerular Filt Rate 72 ml/min (>60); GFR (African American) 87 ML/MIN (>60); Globulin 3.5 g/dL (1.3-3.2); Total Protein,Serum 6.9 g/dl (6.3-8.2)
[2023-03-03 22:08] LABS: Calcium 8.3 mg/dl (8.4-10.2); Glucose 138 mg/dl (74-100); INR 0.98 (0.9-1.1); Prothrombin Time 10.6 seconds (10.1-12.5)
--- NOTE | 2023-03-03 22:12 | PC.NURSE ---
Pt ambulatory to bathroom and able to obtain urine sample.
--- NOTE | 2023-03-03 22:17 | PC.NURSE ---
Gave an update on pt condition to her Sobia Davila. Pt gave permission to release info.
[2023-03-03 22:21] LABS: Troponin I < 0.01 ng/ml (0.00-0.034)
[2023-03-03 22:25] LABS: D-Dimer 0.73 ug/mL (0.0-0.5)
[2023-03-03 23:55] LABS: Troponin I < 0.01 ng/ml (0.00-0.034)
[2023-03-04] VITALS: BP 114/77; PULSE 71; O2SAT 91
--- NOTE | 2023-03-04 00:21 | HMH.EDCP ---
Discharge Plan Disposition Patient Disposition: Home, Self-Care Condition: Good Chief Complaint: Chest Pain Prescriptions Prescriptions: No Action triamcinolone acetonide 0.1 % cream 1 applic topical BID Qty: 15 0RF hydrochlorothiazide 25 mg tablet 25 mg PO DAILY Qty: 30 2RF clotrimazole [Lotrimin AF (clotrimazole)] 1 % cream 1 applic topical BID 14 Days Qty: 30 0RF fluticasone propionate [Flonase Allergy Relief] 50 mcg/actuation spray,suspension 1 spray NS BID Qty: 16 3RF Rx Instructions: administer into each nostril azelastine 205.5 mcg (0.15 %) spray,non-aerosol 1 spray NS BID Qty: 30 3RF Rx Instructions: administer into each nostril cholecalciferol (vitamin D3) 1,250 mcg (50,000 unit) tablet 1,250 mcg PO WEEKLY Qty: 7 2RF cholecalciferol (vitamin D3) 50 mcg (2,000 unit) capsule 50 mcg PO DAILY Qty: 30 4RF ibuprofen 600 mg tablet 600 mg PO Q6H PRN (Reason: pain) Qty: 30 0RF Referrals Follow up/Referrals: Ranjit Ibarra APRN [Primary Care Provider] - See instructions Activity Restrictions/Add. Instructions Additional Instructions/Restrictions: Follow-up with your primary care provider and return to the ER for any new or worsening symptoms. Recommend treating the pain with ibuprofen and considering as reducing medication for the stomach such as Pepcid Clinical Impressions Clinical Impression: Atypical chest pain Instructions Patient Instructions: DI for Atypical Chest Pain Discharge ED Provider: Dino Alarcon Chest Pain [facility] General Chief Complaint: Chest Pain Stated Complaint: Chest pain Time Seen by Provider: 03/03/23 20:15 Mode of Arrival: EMS Source of Information: Patient Limitations: Physical Limitations Description of Symptoms (Recalled from ER Triage Doc. by RN): Pt c/o left side cp that woke his up. He reports it woke him up and he state sit feels like a heavy pressure . He denies any SOA, n/v/d. He denies any fever or chills. History of Present Illness HPI narrative: 47-year-old male presents with left-sided chest pain that woke him up this afternoon from a nap. States that it feels heavy over the left chest denies shortness of breath nausea vomiting diarrhea abdominal pain fevers or chills. Patient states that it is slightly worse with movement and taking a deep breath. He has had this pain before and it typically occurs within 1 to 2 hours after eating. He has no history of cardiovascular disease but he is morbidly obese and has sleep apnea. BILL Score for Non-Stemi Age of Patient: 40-49 years old Heart Rate: 70-89 bpm Systolic Blood Pressure: 100-119 mmHg Serum Creatinine: 0.80-1.19 mg/dl CHF Killip Class: I-No CHF Other Risk Factors: None Non-Stemi Risk Score: 84 Risk Stratification: 1-108 = Low Risk Related Data Previous Rx's Medication Instructions Recorded cholecalciferol (vitamin D3) 1,250 1,250 mcg PO WEEKLY #7 tabs 04/18/22 mcg (50,000 unit) tablet cholecalciferol (vitamin D3) 50 50 mcg PO DAILY #30 caps 04/18/22 mcg (2,000 unit) capsule azelastine 205.5 mcg (0.15 %) 1 spray intranasal BID #30 mL 05/01/22 nasal spray fluticasone propionate 50 1 spray intranasal BID #16 grams 05/01/22 mcg/actuation nasal spray,suspension (Flonase Allergy Relief) hydrochlorothiazide 25 mg tablet 25 mg PO DAILY #30 tabs 08/08/22 triamcinolone acetonide 0.1 % 1 applic topical BID #15 grams 08/08/22 topical cream ibuprofen 600 mg tablet 600 mg PO Q6H PRN pain #30 tabs 08/15/22 clotrimazole 1 % topical cream 1 applic topical BID 2 weeks #30 11/23/22 (Lotrimin AF (clotrimazole)) grams Allergies Allergy/AdvReac Type Severity Reaction Status Date / Time guaifenesin [From Robitussin] Allergy Verified 11/22/22 15:22 pseudoephedrine Allergy Verified 11/22/22 15:22 [facility] Disclaimer: The information contained in this section may have been updated after the patient was seen, as this information can be updated by othe
[2023-03-04 00:32] VITALS: BP 135/78; PULSE 85; RESP 20; TEMP 36.8; O2SAT 98
== END 2023-03-04 01:00 | disposition home or self-care (01) ==
PROVIDERS: Emergency Provider Student in an Organized Health Care Education/Training Program; PCP Nurse Practitioner Family
DX: R07.9 Chest pain, unspecified (principal)
CPT/HCPCS: 71045; 80053; 84484; 85025; 85378; 85610; 93005; 99285

== ENCOUNTER 2023-05-16 11:53 | Emergency (ER) | payer MEDICARE, OTHER, SELFPAY ==
[2023-05-16] VITALS (7 sets, daily range): BP systolic 117–136; BP diastolic 65–95; PULSE 61–77; RESP 20; TEMP 36.8–36.9; O2SAT 93–97; BMI 68.8
--- NOTE | 2023-05-16 12:30 | PC.NURSE ---
Rounded on patient; family at BS. pt and spouse both report no needs at this time. Call archer within reach
--- NOTE | 2023-05-16 14:15 | HMH.EDGENADL ---
Discharge Plan Disposition Patient Disposition: Home, Self-Care Condition: Good Chief Complaint: Headache Prescriptions Prescriptions: No Action triamcinolone acetonide 0.1 % cream 1 applic topical BID Qty: 15 0RF hydrochlorothiazide 25 mg tablet 25 mg PO DAILY Qty: 30 2RF clotrimazole [Lotrimin AF (clotrimazole)] 1 % cream 1 applic topical BID 14 Days Qty: 30 0RF fluticasone propionate [Flonase Allergy Relief] 50 mcg/actuation spray,suspension 1 spray NS BID Qty: 16 3RF Rx Instructions: administer into each nostril azelastine 205.5 mcg (0.15 %) spray,non-aerosol 1 spray NS BID Qty: 30 3RF Rx Instructions: administer into each nostril cholecalciferol (vitamin D3) 1,250 mcg (50,000 unit) tablet 1,250 mcg PO WEEKLY Qty: 7 2RF cholecalciferol (vitamin D3) 50 mcg (2,000 unit) capsule 50 mcg PO DAILY Qty: 30 4RF ibuprofen 600 mg tablet 600 mg PO Q6H PRN (Reason: pain) Qty: 30 0RF Referrals Follow up/Referrals: Mariam Ortega MD [Primary Care Provider] - See instructions Activity Restrictions/Add. Instructions Additional Instructions/Restrictions: Home medication as directed. Follow-up PCP in 1 to 2 days. Return to ER for worsening symptoms Clinical Impressions Clinical Impression: Migraine Qualifiers: Migraine type: unspecified Status migrainosus presence: without status migrainosus Intractability: intractable Qualified Code(s): G43.919 - Migraine, unspecified, intractable, without status migrainosus Stand Alone Forms Stand Alone Forms: Work/School Release Instructions Patient Instructions: DI for Migraine Discharge ED Provider: Jasvir Stallings General Adult HPI General Chief complaint: Headache Stated complaint: Headache Time Seen by Provider: 05/16/23 13:14 Mode of Arrival: EMS Source of Information: Patient Limitations: No Limitations Description of Symptoms (Recalled from ER Triage Doc. by RN): pt to ed c/o frontal headache x4 days. pt denies a hx of migranes. pt reports mild sensitivity to light. pt denies any injury. History of Present Illness HPI narrative: 47yo M presents to the ER secondary to headache x4 days. Reports a history of migraines but they do not typically last this long. Complains of sensitivity to light. No injury, no new medication, no vomiting or diarrhea. Related Data Previous Rx's Medication Instructions Recorded cholecalciferol (vitamin D3) 1,250 1,250 mcg PO WEEKLY #7 tabs 04/18/22 mcg (50,000 unit) tablet cholecalciferol (vitamin D3) 50 50 mcg PO DAILY #30 caps 04/18/22 mcg (2,000 unit) capsule azelastine 205.5 mcg (0.15 %) 1 spray intranasal BID #30 mL 05/01/22 nasal spray fluticasone propionate 50 1 spray intranasal BID #16 grams 05/01/22 mcg/actuation nasal spray,suspension (Flonase Allergy Relief) hydrochlorothiazide 25 mg tablet 25 mg PO DAILY #30 tabs 08/08/22 triamcinolone acetonide 0.1 % 1 applic topical BID #15 grams 08/08/22 topical cream ibuprofen 600 mg tablet 600 mg PO Q6H PRN pain #30 tabs 08/15/22 clotrimazole 1 % topical cream 1 applic topical BID 2 weeks #30 11/23/22 (Lotrimin AF (clotrimazole)) grams Allergies Allergy/AdvReac Type Severity Reaction Status Date / Time guaifenesin [From Robitussin] Allergy Verified 11/22/22 15:22 pseudoephedrine Allergy Verified 11/22/22 15:22 [facility] Disclaimer: The information contained in this section may have been updated after the patient was seen, as this information can be updated by other users. Family History Grandfather Cancer Father Cancer Social History Smoking Status: Never smoker alcohol intake: current substance use type: denies use current occupational status: unemployed and disabled Travel in the last 8 weeks: None household members: significant other housing: house ROS Obtained: Yes [place]
== END 2023-05-16 14:44 | disposition home or self-care (01) ==
PROVIDERS: Emergency Provider Family Medicine; PCP Internal Medicine
DX: G43.919 Migraine, unspecified, intractable, without status migrainosus (principal)
CPT/HCPCS: 96361; 96374; 96375; 99284

== ENCOUNTER 2023-09-25 14:58 | Emergency (ER) | payer MEDICARE, OTHER, SELFPAY ==
[2023-09-25 14:58] VITALS: BP 147/105; PULSE 78; RESP 20; TEMP 36.5; O2SAT 95; BMI 64.5
--- NOTE | 2023-09-25 15:23 | PC.NURSE ---
ER AT BEDSIDE
[2023-09-25 15:30] VITALS: BP 136/95; PULSE 76; RESP 18; O2SAT 93
--- NOTE | 2023-09-25 15:31 | XR_ITS ---
FINAL REPORT CLINICAL HISTORY: Shortness of breath COMPARISON: 03/03/2023 FINDINGS: A single portable view of the chest was obtained. Cardiomegaly is noted. Pulmonary vascularity is within normal limits. The mediastinum is within normal limits. No acute pulmonary abnormality is identified. The bony thorax is intact. IMPRESSION: No active cardiopulmonary disease. Reviewed, Interpreted and Dictated by Roque Tovar III, MD Transcribed by Laisha Maharaj Authenticated and [facility]
--- NOTE | 2023-09-25 15:37 | HMH.EDCP ---
Discharge Plan Disposition Patient Disposition: Home, Self-Care Prescriptions Prescriptions: No Action No Known Home Medications Referrals Follow up/Referrals: Randall Raymundo MD [Staff Physician] - See instructions Provider,MD Husam [Primary Care Provider] - See instructions Activity Restrictions/Add. Instructions Additional Instructions/Restrictions: No emergent medical condition was identified please follow-up with Dr. Raymundo regarding concern for pulmonary hypertension obesity hypoventilation syndrome Clinical Impressions Clinical Impression: Dyspnea, Morbid obesity, Obesity hypoventilation syndrome Discharge ED Provider: Jasmin Donnelly [facility] General Chief Complaint: Shortness of Breath/Dyspnea Stated Complaint: SOA Time Seen by Provider: 09/25/23 15:09 Mode of Arrival: EMS Source of Information: Patient Limitations: No Limitations Description of Symptoms (Recalled from ER Triage Doc. by RN): PT REPORTS SHORTNESS OF BREATH THAT STARTED ABOUT 30 MINUTES AGO AROUND 14:30, STATES HE WAS LYING ON THE COUCH WHEN IT STARTED, DENIES CHEST PAIN, COUGH, CONGESTION, RUNNY NOSE, FEVER, OR ANY OTHER SYMPTOMS, REPORTS SLEEP APNEA, DENIES ANY OTHER RESPIRATORY ISSUES, STATES THE SHORTNESS OF BREATH WORSENS WHEN HE LAUGHS FLAT OR GETS UP History of Present Illness HPI narrative: Patient is a 48-year-old morbidly obese male presenting today with shortness of breath. States he has a known history of obstructive sleep apnea but denies any other cardiopulmonary underlying pathology. States that this began about 30 minutes prior to arrival he was lying down not doing anything in particular. Symptoms have since resolved. No chest pain was associated with this or chest pressure. No fevers chills cough etc. States that he feels back to normal at the moment. Related Data Home Medications Medication Instructions Recorded Confirmed No Known Home Medications 09/25/23 09/25/23 Allergies Allergy/AdvReac Type Severity Reaction Status Date / Time guaifenesin [From Robitussin] Allergy Verified 09/25/23 15:10 pseudoephedrine Allergy Verified 09/25/23 15:10 [facility] Disclaimer: The information contained in this section may have been updated after the patient was seen, as this information can be updated by other users. Family History Grandfather Cancer Father Cancer Social History Smoking Status: Never smoker alcohol intake: current substance use type: denies use current occupational status: unemployed and disabled Travel in the last 8 weeks: None household members: significant other housing: house ROS Obtained: Yes All systems reviewed & no additional complaints except as documented Physical Exam General General appearance: alert and other (Morbidly obese) Respiratory Respiratory exam: Present normal lung sounds bilaterally; Absent respiratory distress, wheezes, stridor, accessory muscle use or prolonged expiratory phase Cardiovascular Cardiovascular exam: Present regular rate; Absent tachycardia Neurological Exam Neurological exam: Present alert and oriented X3 HEART Score HEART Score HEART Score assessment performed?: Yes History (anamnesis): Slightly suspicious ECG: Normal Age: 45-65 years Risk factors: 1-2 risk factors Troponin: </= normal limit HEART Score: 2 Critical Care Critical Care Time Critical Care Time: No Medical Decision Making Michael Inquiry Pt receiving controlled substance: No Vital Signs Vital Signs: 09/25/23 14:58 09/25/23 15:30 09/25/23 16:00 Temperature 97.7 F Temperature Source Oral Pulse Rate 76 77 Pulse Rate [Left Radial] 78 Respiratory Rate 20 18 16 Blood Pressure 136/95 H 129/83 Blood Pressure [Right Arm] 147/105 H Blood Pressure Mean 108 98 Blood Pressure Mean [Right Arm] 119 Blood Pressure Source [Right Arm] Au
--- NOTE | 2023-09-25 15:43 | ECG_ITS ---
APPROVED REPORT Exam: Resting ECG HR:74 bpm ECG Measurements Heart Rate 74 AXES GA 191 P 83 QRSd 93 QRS 77 QT 398 T 59 QTc 425 Conclusion SINUS RHYTHM NORMAL ECG UNCONFIRMED REPORT Electronically signed by : Nirav Quintanilla MD 09/27/2023 08:54:59
[2023-09-25 16:00] VITALS: BP 129/83; PULSE 77; RESP 16; O2SAT 96
[2023-09-25 16:12] LABS: Basophils # 0.1 K/mm3 (0-0.2); Basophils % 0.5 % (0.1-2.0); Eosinophils # 0.4 K/mm3 (0.0-0.4); Eosinophils % 4.5 % (0.1-12.0); Hemoglobin 16.8 g/dL (14.1-18.0); Lymphocytes # 1.7 K/mm3 (0.7-4.5); Lymphocytes % 20.2 % (10-50); Mean Corpuscular HGB Conc 32.3 g/dL (31.8-35.4); Mean Corpuscular Hemoglobin 29.9 pg (27.0-31.2); Mean Corpuscular Volume 92.7 fl (80-94); Mean Platelet Volume 7.5 fl (7.4-10.4); Monocytes # 0.5 K/mm3 (0.1-1.0); Monocytes % 5.8 % (1.7-9.3); Neutrophils # 5.7 K/mm3 (1.8-7.8); Platelet Count 248 K/mm3 (142-424); Red Blood Count 5.61 M/mm3 (4.60-6.20); Red Cell Distribution Width 14.5 % (11.5-17.5); White Blood Count 8.2 K/mm3 (4.8-10.8)
[2023-09-25 16:14] LABS: Chloride 100 mmol/L (98-107); Potassium 3.7 mmoL/L (3.5-5.1); Sodium 139 mmol/L (136-145)
[2023-09-25 16:17] LABS: Alanine Aminotransferase 32 U/L (12-78); Albumin Level 3.8 g/dl (3.5-5.0); Alkaline Phosphatase 109 U/L (38-126); Anion Gap 7.7 mEq/L (5-15); Aspartate Amino Transferase 35 U/L (17-59); Bilirubin,Total 0.3 mg/dl (0.2-1.3); Blood Urea Nitrogen 17 mg/dl (9-20); Calcium 8.4 mg/dl (8.4-10.2); Carbon Dioxide 35 mmol/L (22.0-30.0); Creatinine Clearance Estimated 85 mL/min (50-200); Estimated Glomerular Filt Rate 71 ml/min (>60); GFR (African American) 86 ML/MIN (>60); Globulin 3.7 g/dL (1.3-3.2); Glucose 156 mg/dl (74-100); Total Protein,Serum 7.5 g/dl (6.3-8.2)
[2023-09-25 16:26] LABS: NT Pro Brain Natriuretic Pep. 37.5 pg/mL (0-125)
[2023-09-25 16:30] VITALS: BP 147/118; PULSE 73; RESP 18; O2SAT 93
[2023-09-25 16:35] LABS: Troponin I 0.01 ng/ml (0.00-0.034)
--- NOTE | 2023-09-25 16:45 | PC.NURSE ---
called lab to check status of d-dimer. Lab reports the machine just completed calibration and the test is running now.
[2023-09-25 16:54] LABS: D-Dimer 0.53 ug/mL (0.0-0.5)
[2023-09-25 17:02] VITALS: BP 150/100; PULSE 68; RESP 17; TEMP 36.6; O2SAT 95
[2023-09-25 17:08] VITALS: BP 147/87; PULSE 76; RESP 18; TEMP 36.7; O2SAT 94
== END 2023-09-25 17:09 | disposition home or self-care (01) ==
PROVIDERS: Emergency Provider Student in an Organized Health Care Education/Training Program
DX: R06.02 Shortness of breath (principal); E66.01 Morbid (severe) obesity due to excess calories
CPT/HCPCS: 71045; 80053; 83880; 84484; 85025; 85378; 93005; 99284; 99285

== ENCOUNTER 2024-02-04 18:21 | Emergency (ER) | payer MEDICARE, OTHER, SELFPAY ==
[2024-02-04 18:21] VITALS: BP 153/98; PULSE 66; RESP 20; TEMP 36.8; O2SAT 95; BMI 78.4
--- NOTE | 2024-02-04 18:41 | XR_ITS ---
PROCEDURE INFORMATION: Exam: XR Chest Exam date and time: 02/04/2024 6:49 PM Age: 48 years old Clinical indication: Other: Weakness; Additional info: Recent covid, general weakness TECHNIQUE: Imaging protocol: Radiologic exam of the chest. Views: 1 view. COMPARISON: CR XR CHEST PORTABLE 09/25/2023 3:35 PM FINDINGS: Lungs: Unremarkable. No consolidation. Pleural spaces: Unremarkable. No pleural effusion. No pneumothorax. Heart/Mediastinum: Unremarkable. No cardiomegaly. Bones/joints: Unremarkable. IMPRESSION: No acute findings.
--- NOTE | 2024-02-04 18:42 | ED_ITS ---
Discharge Plan Disposition Patient Disposition: Home, Self-Care Condition: Good Prescriptions Prescriptions: No Action No Known Home Medications Referrals Follow up/Referrals: Provider,Referral, MD [Referring] - See instructions Activity Restrictions/Add. Instructions Additional Instructions/Restrictions: You were evaluated in the emergency department today. At this time, your workup is reassuring. Please follow-up closely with your primary care provider. Make sure that you are staying hydrated. Return to the emergency department for new or worsening symptoms. Clinical Impressions Clinical Impression: General weakness Instructions Patient Instructions: DI for Muscle Weakness, DI for COVID-19 (Suspected or Confirmed ) Discharge ED Provider: Jasmin Carpenter General Adult HPI General Chief complaint: Recheck/Abnormal Lab/Rx Stated complaint: weakness Time Seen by Provider: 02/04/24 18:28 Mode of Arrival: EMS Source of Information: Patient and EMS Limitations: No Limitations Description of Symptoms (Recalled from ER Triage Doc. by RN): 48 M presents via EMS from home with 1 week of continued fatigue and weakness. Patient reports having sick contacts at the beginning of last month. Patient has no other complaints otherwise. Denies chest pain, SOA, fever, cough, chills. History of Present Illness HPI narrative: This patient is a 48-year-old male with a history of morbid obesity (BMI 78), obesity hypoventilation syndrome, and hypertension presenting to the emergency department for general weakness. Patient reports that he had COVID at the end of January, and has had continued fatigue and weakness since then. This has been going on for just over a week. He states that he has not had any persistent fevers, cough, shortness of breath, chest pain, abdominal pain, nausea, vomiting, changes in bowel movements, rashes, or swelling. He is still ambulatory at home and has no focal neurologic deficits. He also notes that he still able to eat and drink. Patient arrives by EMS who noted that he was hemodynamically stable en route with reassuring vital signs and cardiac telemetry. Related Data Home Medications Medication Instructions Recorded Confirmed No Known Home Medications 09/25/23 09/25/23 Allergies Allergy/AdvReac Type Severity Reaction Status Date / Time guaifenesin [From Robitussin] Allergy Verified 09/25/23 15:10 pseudoephedrine Allergy Verified 09/25/23 15:10 [facility] Disclaimer: The information contained in this section may have been updated after the patient was seen, as this information can be updated by other users. Family History Grandfather Cancer Father Cancer Social History Smoking Status: Never smoker alcohol intake: current substance use type: denies use current occupational status: unemployed and disabled Travel in the last 8 weeks: None household members: significant other housing: house ROS Obtained: Yes All systems reviewed & no additional complaints except as documented Physical Exam General General appearance: alert, in no apparent distress and obese Head Head exam: atraumatic and normocephalic Eye Eye exam: Present normal appearance, PERRL and EOMI ENT ENT exam: Present normal exam, normal oropharynx, mucous membranes moist and normal external ear exam Neck Neck exam: Present normal inspection, full ROM and trachea midline; Absent tenderness Chest Chest inspection: Present normal inspection and symmetric chest wall rise; Absent tenderness Respiratory Respiratory exam: Present normal lung sounds bilaterally; Absent respiratory distress, wheezes, stridor or accessory muscle use Cardiovascular Cardiovascular exam: Present regular rate and normal rhythm Abdominal Exam Abdominal exam: Present soft; Absent distention, tenderness or guarding Extremities Exam Extremities exam: Present normal inspection, full ROM and normal capillary refill; Absent tenderness or edema Back Exam Back exam: Present normal inspection and full ROM; Absent tenderness Neurological Exam Neurological exam: Present alert, oriented X3, CN II-XII intact and normal gait; Absent motor sensory deficit Psychiatric Psychiatric exam: Present normal affect and normal mood Skin Skin exam: Present warm and dry Medical Decision Making Medical Records Medical records reviewed: Yes I reviewed the patient's medical records. Michael Inquiry Pt receiving controlled substance: No Vital Signs: 02/04/24 18:21 02/04/24 19:03 02/04/24 20:45 Temperature 98.3 F 98.6 F Temperature Source Oral Pulse Rate 62 Pulse Rate [Left] 66 Pulse Rate [Orthostatic Lying Left] 66 Pulse Rate [Orthostatic Sitting Left] 71 Pulse Rate [Orthostatic Standing Left] 90 Respiratory Rate 20 16 Blood Pressure 129/83 Blood Pressure [Orthostatic Lying Right Arm] 136/83 Blood Pressure [Orthostatic Sitting Right Arm] 122/93 H Blood Pressure [Orthostatic Standing Right Arm] 156/97 H Blood Pressure [Right Arm] 153/98 H Blood Pressure Mean [Right Arm] 116 Blood Pressure Source [Right Arm] Automatic Cuff Blood Pressure Position [Right Arm] Sitting 02 Sat by Pulse Oximetry 95 Oxygen Delivery Method Room Air Room Air Lab Data Lab results reviewed: Yes I reviewed the patient's lab results. Lab Results 02/04/24 18:25: WBC 8.1, RBC 5.29, Hgb 15.7, Hct 48.9, MCV 92.5, MCH 29.8, MCHC 32.2, RDW 14.3, Plt Count 254, MPV 7.6, Neut % (Auto) 61.0, Lymph % (Auto) 25.2, [place] % (Auto) 7.2, Eos % (Auto) 5.1, Baso % (Auto) 1.5, Neut # (Auto) 5.0, Lymph # (Auto) 2.1, [place] # (Auto) 0.6, Eos # (Auto) 0.4, Baso # (Auto) 0.1, Sodium 139, Potassium 3.9, Chloride 105, Carbon Dioxide 33 H, Anion Gap 4.9 L, BUN 17, Creatinine 0.90, Estimated Creat Clear 104, Estimated GFR 90, Est GFR ( Amer) 109, Glucose 137 H, Calcium 8.6, Magnesium 1.8, Total Bilirubin 0.4, AST 32, ALT 27, Alkaline Phosphatase 99, Total Protein 6.6, Albumin 3.4 L, Globulin 3.2, Albumin/Globulin Ratio 1.1, TSH 2.66, Thyroxine (T4) 8.9 02/04/24 18:25 02/04/24 18:25 Orders (Tests/Meds): ED MEDICATIONS Discontinued Medications Generic Name Dose Route Start Last Admin Trade Name Freq PRN Reason Stop Dose Admin Lactated Ringer's 1,000 mls @ 999 mls/hr 02/04/24 18:41 02/04/24 18:47 Lactated Ringer's 1000 Ml Bag IV 02/04/24 19:41 999 mls/hr .Q1H1M ONE Administration ORDERS Category Date Time Status XR chest portable Stat Exams 02/04/24 18:41 Completed Complete Blood Count Auto Diff Stat Lab 02/04/24 18:25 Completed Comprehensive Metabolic Panel Stat Lab 02/04/24 18:25 Completed Magnesium Stat Lab 02/04/24 18:25 Completed T4 (Thyroxine) Stat Lab 02/04/24 18:25 Completed Thyroid Stimulating Hormone Stat Lab 02/04/24 18:25 Completed ECG Data Tracing #1: I reviewed this ECG and interpreted as documented below: Normal sinus rhythm with a ventricular rate of [address] changes concerning for ischemia. Normal axis and intervals. ECG initial impression date: 02/04/24 ECG initial impression time: 19:31 Medical Decision Narrative: In summary, this patient is a 48 year old male presenting to the Emergency Department for evaluation of general weakness and fatigue. Differential diagnoses considered include but are not limited to dehydration, CANDICE, pneumonia, deconditioning, electrolyte derangements. Ruling out the most morbid conditions drove assessment. It should be noted patient's history includes morbid obesity which is not at goal therapy. This complicates all aspects of care by increasing patient's risk for morbidity. On exam, the patient is nontoxic-appearing with normal vital signs on cardiac telemetry. Workup included CBC, CMP, TSH, T4, chest x-ray, and EKG. EKG obtained is reassuring. I independently interpreted x-ray prior to the radiologist read and noted no acute focal consolidation concerning for pneumonia. Please see their read for final interpretation. Labs were obtained that demonstrated significant leukocytosis, anemia, electrolyte derangements, or CANDICE. Labs are reassuring.. Ultimately, patient was able to ambulate throughout the emergency department. Vitals, exam, and workup are reassuring. I feel he likely has general weakness and fatigue as a result of his recent viral illness as well as deconditioning in the setting of morbid obesity. Given reassuring exam and workup, I feel that he is appropriate for discharge home with close outpatient follow-up. Strict return precautions were given as well as instructions for supportive management. Patient was discharged after all questions were answered. Critical Care Critical Care Time Critical Care Time: No
[2024-02-04 18:46] LABS: Basophils # 0.1 K/mm3 (0-0.2); Basophils % 1.5 % (0.1-2.0); Eosinophils # 0.4 K/mm3 (0.0-0.4); Eosinophils % 5.1 % (0.1-12.0); Hematocrit 48.9 % (42.0-52.0); Hemoglobin 15.7 g/dL (14.1-18.0); Lymphocytes # 2.1 K/mm3 (0.7-4.5); Lymphocytes % 25.2 % (10-50); Mean Corpuscular HGB Conc 32.2 g/dL (31.8-35.4); Mean Corpuscular Hemoglobin 29.8 pg (27.0-31.2); Mean Corpuscular Volume 92.5 fl (80-94); Mean Platelet Volume 7.6 fl (7.4-10.4); Monocytes # 0.6 K/mm3 (0.1-1.0); Monocytes % 7.2 % (1.7-9.3); Platelet Count 254 K/mm3 (142-424); Red Blood Count 5.29 M/mm3 (4.60-6.20); Red Cell Distribution Width 14.3 % (11.5-17.5); White Blood Count 8.1 K/mm3 (4.8-10.8)
[2024-02-04] MEDS: LACTATED RINGERS 1000ML 1,000 ML 999 ML IV (18:47)
[2024-02-04 18:50] LABS: Chloride 105 mmol/L (98-107)
[2024-02-04 18:51] LABS: Potassium 3.9 mmoL/L (3.5-5.1); Sodium 139 mmol/L (136-145)
[2024-02-04 18:53] LABS: Alanine Aminotransferase 27 U/L (12-78); Aspartate Amino Transferase 32 U/L (17-59); Blood Urea Nitrogen 17 mg/dl (9-20); Creatinine Clearance Estimated 104 mL/min (50-200); Estimated Glomerular Filt Rate 90 ml/min (>60); GFR (African American) 109 ML/MIN (>60)
[2024-02-04 18:54] LABS: Albumin Level 3.4 g/dl (3.5-5.0); Albumin/Globulin Ratio 1.1 (1.1-1.8); Alkaline Phosphatase 99 U/L (38-126); Anion Gap 4.9 mEq/L (5-15); Bilirubin,Total 0.4 mg/dl (0.2-1.3); Calcium 8.6 mg/dl (8.4-10.2); Carbon Dioxide 33 mmol/L (22.0-30.0); Globulin 3.2 g/dL (1.3-3.2); Glucose 137 mg/dl (74-100); Magnesium 1.8 mg/dl (1.6-2.3); Total Protein,Serum 6.6 g/dl (6.3-8.2)
[2024-02-04 19:03] VITALS: BP 122/93; BP 136/83; BP 156/97; PULSE 66; PULSE 71; PULSE 90
[2024-02-04 19:11] LABS: T4 (Thyroxine) 8.9 ug/dl (5.53-11.0)
[2024-02-04 19:24] LABS: Thyroid Stimulating Hormone 2.66 uIU/mL (0.465-4.68)
--- NOTE | 2024-02-04 19:29 | ECG_ITS ---
APPROVED REPORT Exam: Resting ECG HR:65 bpm ECG Measurements Heart Rate 65 AXES IL 200 P 69 QRSd 92 QRS 64 QT 422 T 68 QTc 433 Conclusion SINUS RHYTHM NONSPECIFIC T-WAVE ABNORMALITY Electronically signed by : LEANNA CUELLO, 02/04/2024 23:03:33
[2024-02-04 20:45] VITALS: BP 129/83; PULSE 62; RESP 16; TEMP 37; O2SAT 94
== END 2024-02-04 20:53 | disposition home or self-care (01) ==
PROVIDERS: Emergency Provider Emergency Medicine; PCP Internal Medicine
DX: R53.1 Weakness (principal); E66.2 Morbid (severe) obesity with alveolar hypoventilation; I10 Essential (primary) hypertension; Z68.45 Body mass index [BMI] 70 or greater, adult
CPT/HCPCS: 71045; 80053; 83735; 84436; 84443; 85025; 93005; 96360; 99284

== ENCOUNTER 2024-02-08 19:20 | Emergency (ER) | payer MEDICARE, OTHER, SELFPAY ==
[2024-02-08 19:22] VITALS: BP 160/83; PULSE 82; RESP 18; TEMP 36.8; O2SAT 94; BMI 71.7
--- NOTE | 2024-02-08 19:40 | XR_ITS ---
PROCEDURE INFORMATION: Exam: XR Chest Exam date and time: 02/08/2024 7:42 PM Age: 48 years old Clinical indication: Shortness of breath; Additional info: CO; Ngestion, low o2 TECHNIQUE: Imaging protocol: Radiologic exam of the chest. Views: 2 views. COMPARISON: CR XR CHEST PORTABLE 02/04/2024 6:49 PM FINDINGS: Limitations: Suboptimal positioning. Lungs: No definite consolidation. Pleural spaces: No significant pleural effusion. No pneumothorax. Heart/Mediastinum: No cardiomegaly. Bones/joints: No displaced fracture. Soft tissues: Unremarkable. IMPRESSION: No definite acute cardiopulmonary disease.
--- NOTE | 2024-02-08 19:43 | ED_ITS ---
Discharge Plan Disposition Patient Disposition: Home, Self-Care Prescriptions Prescriptions: New Paxlovid 300 mg (150 mg x 2)-100 mg tablets,dose pack See Rx Instructions PO .COMPLEX Qty: 30 0RF Rx Instructions: take TWO 150 mg tablets of nirmatrelvir with ONE 100 mg tablet of ritonavir twice daily for 5 days Referrals Follow up/Referrals: Mariam Ortega MD [Primary Care Provider] - See instructions Activity Restrictions/Add. Instructions Additional Instructions/Restrictions: Call your family doctor to establish care for this visit to the emergency de partment and schedule follow-up within 48 hours to ensure improvement. If you have any worsening of your condition or any other concerning signs or symptoms, return to the emergency department or your primary care doctor for further evaluation. Clinical Impressions Clinical Impression: COVID-19 Discharge ED Provider: Joseph Iqbal General Adult HPI General Chief complaint: Upper Respiratory Infection Stated complaint: jeffrey,wheez, Time Seen by Provider: 02/08/24 19:22 Mode of Arrival: Ambulatory Source of Information: Patient Limitations: No Limitations Description of Symptoms (Recalled from ER Triage Doc. by RN): Pt presents with chest and sinus congestion x 2 days. Denies any soa, fever, body aches or pain. History of Present Illness HPI narrative: 48-year-old male with morbid obesity, deviated septum obesity hypoventilation presenting with congestion. Patient states he has been congested for the last 24 hours. Has not taken anything for it. No fevers or chills, nausea or vomiting, diarrhea or constipation. States that because of his deviated septum he is unable to breathe on the right side of his nose, left side is clogged and he has been unable to breathe. Comes for further evaluation. Please note that above description of symptoms, in this electronic medical record under categorization of recalled from ER triage doctor by RN are reflective of an initial nursing assessment, however, is not reflective of my full history and physical exam that was personally taken and clarified. Consequentially, this preceding description of symptoms, which may include the patient's categorized chief complaint in the EMR, do not reflect my personal clinical impression, and the ultimate description of history of present illness and patient stated complaints should be deferred to this section of the note. Unless stated otherwise or congruent with this section of the note, additional signs, symptoms, or incongruence should be interpreted as inaccurate with my clinical impression. Related Data Previous Rx's Medication Instructions Recorded nirmatrelvir 300 mg (150 mg See Rx Instructions PO .COMPLEX 02/08/24 x2)-ritonavir 100 mg tablet,dose #30 tabs pack (Paxlovid) Allergies Allergy/AdvReac Type Severity Reaction Status Date / Time guaifenesin [From Robitussin] Allergy Verified 09/25/23 15:10 pseudoephedrine Allergy Verified 09/25/23 15:10 [facility] Disclaimer: The information contained in this section may have been updated after the patient was seen, as this information can be updated by other users. Family History Grandfather Cancer Father Cancer Social History Smoking Status: Never smoker alcohol intake: current substance use type: denies use current occupational status: unemployed and disabled Travel in the last 8 weeks: None household members: significant other housing: house ROS Obtained: Yes All systems reviewed & no additional complaints except as documented Physical Exam General General appearance: alert, in no apparent distress, obese and other (Chronically ill-appearing) Head Head exam: atraumatic and normocephalic Eye Eye exam: Present normal appearance, PERRL and EOMI ENT ENT exam: Present mucous membranes dry Neck Neck exam: Present normal inspection, full ROM and trachea midline Respiratory Respiratory exam: Present normal lung sounds bilaterally; Absent respiratory distress, wheezes, stridor, accessory muscle use or prolonged expiratory phase Cardiovascular Cardiovascular exam: Present regular rate and normal rhythm Abdominal Exam Abdominal exam: Present soft; Absent distention, tenderness, guarding, rebound or rigidity Extremities Exam Extremities exam: Absent edema Neurological Exam Neurological exam: Present alert, oriented X3, CN II-XII intact and normal gait; Absent motor sensory deficit Skin Skin exam: Present warm and dry; Absent diaphoresis or erythema Medical Decision Making Medical Records Medical records reviewed: Yes I reviewed the patient's medical records. Michael Inquiry Pt receiving controlled substance: No Michael was queried for this patient: No Vital Signs: 02/08/24 19:22 Temperature 98.2 F Temperature Source Oral Pulse Rate [Left] 82 Respiratory Rate 18 Blood Pressure [Right Arm] 160/83 H Blood Pressure Mean [Right Arm] 108 Blood Pressure Source [Right Arm] Automatic Cuff Blood Pressure Position [Right Arm] Sitting 02 Sat by Pulse Oximetry 94 L Oxygen Delivery Method Room Air Lab Data Lab Results 02/08/24 19:41: SARS-CoV-2 (PCR) Detected A, Influenza A Untype (PCR) Not detected, Influenza Type B (PCR) Not detected Orders (Tests/Meds): ED MEDICATIONS Discontinued Medications Generic Name Dose Route Start Last Admin Trade Name Jarod PRN Reason Stop Dose Admin Dexamethasone 10 mg 02/08/24 19:40 02/08/24 19:45 Dexamethasone 4mg Tablet PO 02/08/24 19:41 10 mg ONCE ONE Administration Loratadine 10 mg 02/08/24 19:40 02/08/24 19:50 Loratadine 10mg Tablet PO 02/08/24 19:41 10 mg ONCE ONE Administration ORDERS Category Date Time Status CXR 2 view (NOT portable) [XR chest 2V] Stat Exams 02/08/24 19:40 Taken Rapid PCR Covid and Flu A/B Stat Lab 02/08/24 19:41 Completed Medical Decision Narrative: 48-year-old male with morbid obesity, deviated septum obesity hypoventilation presenting with congestion. Patient states he has been congested for the last 24 hours. Has not taken anything for it. No fevers or chills, nausea or vomiting, diarrhea or constipation. States that because of his deviated septum he is unable to breathe on the right side of his nose, left side is clogged and he has been unable to breathe. Comes for further evaluation. History obtained with patient. On arrival, patient hemodynamically stable, alert, oriented. Hypertensive, saturating 94 to 95% on room air. Nontachypneic. Lungs are clear to auscultation bilaterally. No obvious sinus drainage. Patient states that is clear/white when he does expectorate some. Differential includes acute viral syndrome, nasal congestion, sinusitis, among others. Patient requesting swab, this will be performed. Chest x-ray obtained due to concern for congestion and hypoxemia 94%. No acute pneumonia on chest x-ray. COVID swab positive. On reevaluation, patient still feels comfortable going home. Will be prescribed Paxlovid. Because patient at baseline without signs or symptoms of clinical decompensation, deemed appropriate for discharge. Results were relayed to patient who voiced understanding and were agreeable to outpatient management and follow up. I discussed my clinical impression with patient and answered all questions. At this time, the evidence for any other entities in the differential is insufficient to warrant any further testing or ED observation. This was explained as well. Advisory was given that persistent or worsening symptoms require further evaluation. I confirmed the understanding of this discussion. Critical Care Critical Care Time Critical Care Time: No
[2024-02-08 19:44] LABS: Influenza A, PCR Not Detected (NotDetected); Influenza B, PCR Not Detected (NotDetected)
[2024-02-08] MEDS: DEXAMETHASONE 4MG TABLET 10 MG PO (19:45)
[2024-02-08] MEDS: LORATADINE 10MG TABLET 10 MG PO (19:50)
--- NOTE | 2024-02-08 19:51 | PC.NURSE ---
pt to x ray at this time
[2024-02-08 20:05] LABS: Coronavirus 19, PCR Detected (NotDetected)
[2024-02-08 21:18] VITALS: BP 129/77; PULSE 87; RESP 20; TEMP 36.8; O2SAT 93
== END 2024-02-08 21:23 | disposition home or self-care (01) ==
PROVIDERS: Emergency Provider Emergency Medicine; PCP Internal Medicine
DX: U07.1 COVID-19 (principal); R09.81 Nasal congestion; E66.2 Morbid (severe) obesity with alveolar hypoventilation; J34.2 Deviated nasal septum; I10 Essential (primary) hypertension; Z68.45 Body mass index [BMI] 70 or greater, adult; Z56.0 Unemployment, unspecified
CPT/HCPCS: 71046; 87636; 99283

== ENCOUNTER 2024-07-30 15:28 | Emergency (ER) | payer MEDICARE, OTHER, SELFPAY ==
[2024-07-30 15:28] VITALS: BP 167/109; PULSE 70; RESP 20; TEMP 36.6; O2SAT 96; BMI 81.2
--- NOTE | 2024-07-30 15:30 | XR_ITS ---
FINAL REPORT CLINICAL HISTORY: L shoulder pain after deep inspiration COMPARISON: 02/08/2024 FINDINGS: No acute pulmonary opacity is present. There is no evidence of effusion or pneumothorax. Mediastinum is unremarkable. Heart size is normal. IMPRESSION: No acute abnormality. Reviewed, Interpreted and Dictated by Prem Westfall MD Transcribed by Lauren Robles Authenticated and [facility]
--- NOTE | 2024-07-30 15:30 | XR_ITS ---
FINAL REPORT CLINICAL HISTORY: Transient L shoulder pain after deep inspriation COMPARISON: None FINDINGS: LEFT SHOULDER 3 views show no evidence of acute displaced fracture or dislocation of the visualized bony architecture. The joint spaces appear normal. IMPRESSION: Unremarkable exam. Reviewed, Interpreted and Dictated by Prem Westfall MD Transcribed by Lauren Robles Authenticated and [facility]
--- NOTE | 2024-07-30 15:43 | HMH.EDGENADL ---
Discharge Plan Disposition Patient Disposition: Home, Self-Care Chief Complaint: PAIN Referrals Follow up/Referrals: Provider,Referral, MD [Primary Care Provider] - See instructions Activity Restrictions/Add. Instructions Additional Instructions/Restrictions: Call your family doctor to establish care for this visit to the emergency department and schedule follow-up within 48 hours to ensure improvement. If you have any worsening of your condition or any other concerning signs or symptoms, return to the emergency department or your primary care doctor for further evaluation. Take Tylenol 1000 mg every 6 hours (4 times daily) and ibuprofen 400 mg every 6 hours (4 times daily) as needed with food and water to prevent GI upset and kidney damage. Clinical Impressions Clinical Impression: Acute pain of left shoulder Print Language Print Language: Mongolian Discharge ED Provider: Joseph Iqbal General Adult HPI General Chief complaint: PAIN Stated complaint: pain Time Seen by Provider: 07/30/24 15:29 Mode of Arrival: EMS Source of Information: Patient Limitations: No Limitations Description of Symptoms (Recalled from ER Triage Doc. by RN): PT BROUGHT IN BY [facility] FROM HOME, STATES HE TOOK A DEEP BREATH THAT SENT A SHOOTING PAIN FROM HIS L SHOULDER DOWN HIS ARM, STATES IT HAS RESOLVED AND JUST WANTED TO COME AND GET CHECKED OUT TO BE SAFE, DENIES ANY PAIN History of Present Illness HPI narrative: Please note that above description of symptoms, in this electronic medical record under categorization of recalled from ER triage doctor by RN are reflective of an initial nursing assessment, however, is not reflective of my full history and physical exam that was personally taken and clarified. Consequentially, this preceding description of symptoms, which may include the patient's categorized chief complaint in the EMR, do not reflect my personal clinical impression, and the ultimate description of history of present illness and patient stated complaints should be deferred to this section of the note. Unless stated otherwise or congruent with this section of the note, additional signs, symptoms, or incongruence should be interpreted as inaccurate with my clinical impression. Related Data Allergies Allergy/AdvReac Type Severity Reaction Status Date / Time guaifenesin [From Robitussin] Allergy Other Verified 07/30/24 15:32 pseudoephedrine Allergy Other Verified 07/30/24 15:32 [facility] Disclaimer: The information contained in this section may have been updated after the patient was seen, as this information can be updated by other users. Family History Grandfather Cancer Father Cancer Social History Smoking Status: Never smoker alcohol intake: current alcohol intake frequency: a few times a month substance use type: denies use current occupational status: unemployed and disabled Travel in the last 8 weeks: None household members: significant other housing: house ROS Obtained: Yes All systems reviewed & no additional complaints except as documented Physical Exam General General appearance: alert, in no apparent distress and obese Head Head exam: atraumatic and normocephalic Eye Eye exam: Present normal appearance, PERRL and EOMI Neck Neck exam: Present normal inspection, full ROM and trachea midline Respiratory Respiratory exam: Present normal lung sounds bilaterally; Absent respiratory distress, wheezes, stridor, accessory muscle use or prolonged expiratory phase Cardiovascular Cardiovascular exam: Present regular rate, normal rhythm and other (Pulses equal symmetric in upper and lower extremities) Abdominal Exam Abdominal exam: Present soft; Absent distention, tenderness or pulsatile mass Extremities Exam Extremities exam: Absent edema Neurological Exam Neurological exam: Present alert, oriented X3 and CN II-XII intact; Absent motor sensory deficit Skin Skin exam: Present warm and dry; Absent diaphoresis or erythema Medical Decision Making Medical Records Medical records reviewed: Yes I reviewed the patient's medical records. Screening: Per USPSTF and CDC recommendations, given the prevalence of disease in our region, it is our hospital?s policy to screen for HIV and viral Hepatitis for all patients aged 18 and over and those with ongoing risk factors. Michael Inquiry Pt receiving controlled substance: No Michael was queried for this patient: No Vital Signs: 07/30/24 15:28 Temperature 97.8 F Temperature Source Oral Pulse Rate [Left Radial] 70 Respiratory Rate 20 Blood Pressure [Right Arm] 167/109 H Blood Pressure Mean [Right Arm] 128 Blood Pressure Source [Right Arm] Automatic Cuff Blood Pressure Position [Right Arm] Sitting 02 Sat by Pulse Oximetry 96 Oxygen Delivery Method Room Air Orders (Tests/Meds): ORDERS Category Date Time Status CXR --portable [XR chest portable] Stat Exams 07/30/24 15:30 Taken Shoulder XR left minimum 2 views [XR shoulder LT min 2V Exams 07/30/24 15:30 Taken ] Stat Medical Decision Narrative: This is a 48-year-old male history of morbid obesity presenting with left shoulder pain. Patient states that he was at his house, took a deep breath, had pain in his left shoulder anteriorly that radiated into his mid left bicep. Only lasted a couple seconds, self abated. No chest pain, shortness of breath, nausea, vomiting, syncope, left upper extremity symptoms otherwise, neck or back pain, etc. Called EMS because he was scared of the symptoms. On EMS arrival, patient states he is back at his baseline, still wanted to be evaluated in the emergency department. On arrival to the emergency department, very well-appearing. Morbidly obese, disheveled, but no acute distress. Bilateral breath sounds, pulses equal and symmetric in upper and lower extremities. Patient left upper extremity neurovascularly intact with full range of motion at shoulder, elbow, wrist, etc. Differential includes intercostal muscle strain, pneumothorax, shoulder sprain, among others. Less likely PE, ACS, AL or other life-threatening disease given few seconds of symptoms and complete resolution. Patient not given any interventions in the emergency department because he is asymptomatic. Shoulder and chest x-rays obtained. On independent interpretation, no acute bony abnormality of the shoulder, no dislocation. Lung appears intact, no pneumothorax, no acute abnormality. Because patient at baseline without signs or symptoms of clinical decompensation, deemed appropriate for discharge. Results were relayed to patient who voiced understanding and were agreeable to outpatient management and follow up. I discussed my clinical impression with patient and answered all questions. At this time, the evidence for any other entities in the differential is insufficient to warrant any further testing or ED observation. This was explained as well. Advisory was given that persistent or worsening symptoms require further evaluation. I confirmed the understanding of this discussion. Formula Checker disclaimer Much of this encounter note is an electronic game and fish protector spoken language to printed text. Electronic game and fish protector of the spoken language may permit errors. Although I have reviewed the note, some errors may still exist. Critical Care Critical Care Time Critical Care Time: No
[2024-07-30 16:01] VITALS: BP 116/77; PULSE 68; RESP 20; O2SAT 90
[2024-07-30 16:13] VITALS: BP 148/105; PULSE 71; RESP 17; O2SAT 91
[2024-07-30 16:16] VITALS: BP 148/95; PULSE 71; RESP 18; TEMP 36.7; O2SAT 92
== END 2024-07-30 16:17 | disposition home or self-care (01) ==
PROVIDERS: Emergency Provider Emergency Medicine
DX: M25.512 Pain in left shoulder (principal)
CPT/HCPCS: 71045; 73030; 99283

== ENCOUNTER 2024-09-26 17:58 | Emergency (ER) | payer MEDICARE, OTHER, SELFPAY ==
--- NOTE | 2024-09-26 17:33 | ECG_ITS ---
APPROVED REPORT Exam: Resting ECG HR:72 bpm ECG Measurements Heart Rate 72 AXES SD 186 P 54 QRSd 93 QRS 20 QT 423 T 63 QTc 448 Conclusion SINUS RHYTHM NORMAL ECG UNCONFIRMED REPORT Electronically signed by : DARIO MONTGOMERY, 09/26/2024 23:11:02
[2024-09-26 17:36] VITALS: BP 196/119; PULSE 72; RESP 24; TEMP 36.7; O2SAT 94; BMI 83.9
--- NOTE | 2024-09-26 17:40 | XR_ITS ---
PROCEDURE INFORMATION: Exam: XR Chest Exam date and time: 09/26/2024 6:51 PM Age: 49 years old Clinical indication: Pain; Cough; Chest pressure; Additional info: Chest pressure, cough TECHNIQUE: Imaging protocol: Radiologic exam of the chest. Views: 1 view. COMPARISON: CR XR CHEST PORTABLE 07/30/2024 3:32 PM FINDINGS: Scan quality: Underpenetrated. Lungs: No consolidation. Pleural spaces: No pleural effusion. No pneumothorax. Heart/Mediastinum: Cardiomegaly. Bones/joints: Unremarkable. IMPRESSION: Suboptimal evaluation of the lungs. No identifiable acute findings.
--- NOTE | 2024-09-26 17:41 | ED_ITS ---
Discharge Plan Disposition Patient Disposition: Home, Self-Care Condition: Good Referrals Follow up/Referrals: Randall Raymundo MD [Staff Physician] - See instructions Provider,MD Husam [Primary Care Provider] - See instructions Activity Restrictions/Add. Instructions Additional Instructions/Restrictions: You were evaluated in the emergency department today. At this time, your workup and x-ray are reassuring. Please follow-up very closely with primary care as an outpatient. We are also providing with information for cardiology as he can schedule an appointment with them. Return to the emergency department for new or worsening symptoms. Clinical Impressions Clinical Impression: Chest pain, Cough Stand Alone Forms Stand Alone Forms: Work/School Release Instructions Patient Instructions: DI for Cough -- Adult, DI for Atypical Chest Pain Print Language Print Language: Qatari Discharge ED Provider: Jasmin Carpenter HPI General Chief Complaint: Chest Pain Stated Complaint: chest pain Time Seen by Provider: 09/26/24 17:58 Mode of Arrival: EMS Source of Information: Patient and EMS Limitations: No Limitations Description of Symptoms (Recalled from ER Triage Doc. by RN): mid chest pain,exposed to flu History of Present Illness HPI narrative: This patient is a 49-year-old male with a history of morbid obesity with a BMI of 83, obesity hypoventilation syndrome with CPAP noncompliance, eczema, and dermatitis presenting to the emergency department for evaluation with concern for chest pressure and cough. Patient reports that his girlfriend has the flu so he is had recent exposure. He notes that at 5:00 PM, he was playing with his dog in his bed when he fell like something was sitting on his chest. He denies any fevers, chills, shortness of breath, abdominal pain, nausea, vomiting, changes bowel movements, or other concerns. No calf pain or swelling. He does note cough does nonproductive he arrives by EMS who noted he is mildly hypertensive but otherwise vitals are reassuring en route. EKG also reassuring. Related Data Allergies Allergy/AdvReac Type Severity Reaction Status Date / Time guaifenesin (From Robitussin) Allergy Other Verified 07/30/24 15:32 pseudoephedrine Allergy Other Verified 07/30/24 15:32 [facility] Disclaimer: The information contained in this section may have been updated after the patient was seen, as this information can be updated by other users. Family History Grandfather Cancer Father Cancer Social History Smoking Status: Never smoker alcohol intake: current alcohol intake frequency: a few times a month substance use type: denies use current occupational status: unemployed and disabled household members: significant other housing: house Other Medical History Have you received the Flu Vaccine for this season: No Have you received the Pneumonia Vaccine: No ROS Obtained: Yes All systems reviewed & no additional complaints except as documented Physical Exam General General appearance: alert, in no apparent distress and obese Head Head exam: atraumatic and normocephalic Eye Eye exam: Present normal appearance, PERRL and EOMI ENT ENT exam: Present normal exam, normal oropharynx, mucous membranes moist and normal external ear exam Neck Neck exam: Present normal inspection, full ROM and trachea midline; Absent tenderness Chest Chest inspection: Present normal inspection and symmetric chest wall rise; Absent tenderness Respiratory Respiratory exam: Present normal lung sounds bilaterally; Absent respiratory distress, wheezes, stridor or accessory muscle use Cardiovascular Cardiovascular exam: Present regular rate and normal rhythm Abdominal Exam Abdominal exam: Present soft; Absent distention, tenderness or guarding Extremities Exam Extremities exam: Present normal inspection, full ROM and normal capillary refill; Absent tenderness or edema Back Exam Back exam: Present normal inspection and full ROM; Absent tenderness Neurological Exam Neurological exam: Present alert, oriented X3, CN II-XII intact and normal gait; Absent motor sensory deficit Psychiatric Psychiatric exam: Present normal affect and normal mood Skin Skin exam: Present warm and dry HEART Score HEART Score HEART Score assessment performed?: Yes History (anamnesis): Slightly suspicious ECG: Normal Age: 45-65 years Risk factors: 3 or more risk factors Troponin: </= normal limit HEART Score: 3 Critical Care Critical Care Time Critical Care Time: No Medical Decision Making Michael Inquiry Pt receiving controlled substance: No Vital Signs Vital Signs: 09/26/24 17:36 09/26/24 18:01 09/26/24 19:00 Temperature 98.1 F Temperature Source Oral Pulse Rate 70 78 Pulse Rate [Right] 72 Respiratory Rate 24 Blood Pressure 128/88 146/88 H Blood Pressure [Right Arm] 196/119 H Blood Pressure Mean [Right Arm] 144 Blood Pressure Source Automatic Cuff Blood Pressure Position Sitting 02 Sat by Pulse Oximetry 94 L 92 L 96 Oxygen Delivery Method Room Air Room Air 09/26/24 19:30 09/26/24 20:00 09/26/24 21:01 Temperature 97.9 F Temperature Source Oral Pulse Rate 78 74 74 Pulse Rate [Right] Respiratory Rate 18 Blood Pressure 150/94 H 152/78 H 138/74 Blood Pressure [Right Arm] Blood Pressure Mean [Right Arm] Blood Pressure Source Automatic Cuff Automatic Cuff Automatic Cuff Blood Pressure Position Sitting Supine Supine 02 Sat by Pulse Oximetry 94 L 94 L Oxygen Delivery Method Room Air Room Air Lab Data Labs: Lab Results 09/26/24 11:23: WBC 9.3, RBC 5.73, Hgb 16.4, Hct 50.9, MCV 88.8, MCH 28.7, MCHC 32.3, RDW 14.6, Plt Count 258, MPV 7.1 L, Neut % (Auto) 59.4, Lymph % (Auto) 28.2, [place] % (Auto) 7.0, Eos % (Auto) 4.0, Baso % (Auto) 1.3, Neut # (Auto) 5.5, Lymph # (Auto) 2.6, [place] # (Auto) 0.7, Eos # (Auto) 0.4, Baso # (Auto) 0.1 09/26/24 17:30: Sodium 141, Potassium 3.7, Chloride 100, Carbon Dioxide 34 H, Anion Gap 10.7, BUN 17, Creatinine 1.30 H, Estimated Creat Clear 71, Estimated GFR 59, Est GFR ( Amer) 71, Glucose 98, Calcium 8.9, Total Bilirubin 0.6, AST 32, ALT 31, Alkaline Phosphatase 94, Troponin I 0.03, NT-Pro-B Natriuret Pep 97.0, Total Protein 7.6, Albumin 3.9, Globulin 3.7 H, Albumin/Globulin Ratio 1.1 09/26/24 17:35: SARS-CoV-2 (PCR) Not detected, Influenza A Untype (PCR) Not detected, Influenza Type B (PCR) Not detected 09/26/24 20:18: Troponin I 0.02 09/26/24 11:23 09/26/24 17:30 Response Orders (Tests/Meds): ED MEDICATIONS Discontinued Medications Generic Name Dose Route Start Last Admin Trade Name Freq PRN Reason Stop Dose Admin Acetaminophen 1,000 mg 09/26/24 17:44 09/26/24 17:50 Acetaminophen 500mg Tab PO 09/26/24 17:45 1,000 mg ONCE ONE Administration Ketorolac Tromethamine 15 mg 09/26/24 17:44 09/26/24 17:50 Ketorolac 30mg/Ml Vial IV 09/26/24 17:45 15 mg ONCE ONE Administration ORDERS Category Date Time Status CXR --portable [XR chest portable] Stat Exams 09/26/24 19:06 Completed XR chest portable Stat Exams 09/26/24 17:40 Completed BNP [NT Pro Brain Natriuretic Pep.] Stat Lab 09/26/24 17:30 Completed Complete Blood Count Auto Diff Stat Lab 09/26/24 11:23 Completed Comprehensive Metabolic Panel Stat Lab 09/26/24 17:30 Completed Rapid PCR Covid and Flu A/B Stat Lab 09/26/24 17:35 Completed Trop I [Troponin I] Stat Lab 09/26/24 17:30 Completed Troponin I Q3H Lab 09/26/24 20:18 Completed ECG Data Tracing #1: Attestation: I reviewed this ECG and interpreted as documented below: ECG Narrative: NormalNormal sinus rhythm with a ventricular rate of 72 bpm. Intervals. No acute ST changes concerning for ischemia. ECG initial impression date: 09/26/24 ECG initial impression time: 17:36 MDM Narrative Medical Decision Narrative: In summary, this patient is a 49-year-old male presenting to the Emergency Department for evaluation of chest pressure and cough in the setting of flu exposure. Differential diagnoses considered include but are not limited to ACS, dysrhythmia, pneumonia, respiratory failure, CHF. Ruling out the most morbid conditions drove assessment. It should be noted patient's history includes morbid obesity with a BMI of 83 which is not at goal therapy. This complicates all aspects of care by increasing patient's risk for morbidity. On exam, the patient is lying comfortably in bed in no acute distress with reassuring vital signs on cardiac telemetry. He is not hypoxic or tachycardic. He is PERC negative for pulmonary embolus. Cardiopulmonary exam is reassuring. Workup included CBC, CMP, troponin, chest x-ray, EKG, as well as viral swab in the setting of flu exposure. He was given oral Tylenol, IV Toradol for symptomatic improvement. I independently interpreted x-ray prior to the radiologist read and noted poor penetration given body habitus but no obvious large focal consolidation concerning for pneumonia. Please see their read for final interpretation. Labs were obtained that demonstrated reassuring CBC without significant leukocytosis anemia or other concerns. Chemistry shows a very mild increase in creatinine from baseline but not severe. Initial troponin is 0.03. On reassessment, patient is resting comfortably with reassuring vital signs on cardiac telemetry. At 1830, patient was placed in ED observation status pending second troponin to determine whether or not the patient would be appropriate for discharge versus admission. The patient was provided serial reevaluations and cardiac monitoring while awaiting ultimate disposition. Second opponent resulted and is negative. On multiple subsequent reassessments, patient is resting comfortably with reassuring vital signs on cardiac telemetry and has no symptoms. His chest pressure has resolved. Given reassuring workup and exam, it is felt that the patient is appropriate for discharge at 2100. Total ED observation time was 2 hours 30 minutes. I had a [id number] visit with the patient when providing discharge instructions. The total time involved in discharging this patient was less than 30 minutes. Patient was given instructions for close follow-up with primary care, cardiology, and very strict return precautions.
[2024-09-26 17:45] LABS: Coronavirus 19, PCR Not Detected (NotDetected); Influenza A, PCR Not Detected (NotDetected); Influenza B, PCR Not Detected (NotDetected)
[2024-09-26 17:49] LABS: Basophils # 0.1 K/mm3 (0-0.2); Basophils % 1.3 % (0.1-2.0); Eosinophils # 0.4 K/mm3 (0.0-0.4); Hematocrit 50.9 % (42.0-52.0); Hemoglobin 16.4 g/dL (14.1-18.0); Lymphocytes # 2.6 K/mm3 (0.7-4.5); Lymphocytes % 28.2 % (10-50); Mean Corpuscular HGB Conc 32.3 g/dL (31.8-35.4); Mean Corpuscular Hemoglobin 28.7 pg (27.0-31.2); Mean Corpuscular Volume 88.8 fl (80-94); Mean Platelet Volume 7.1 fl (7.4-10.4); Monocytes # 0.7 K/mm3 (0.1-1.0); Neutrophils # 5.5 K/mm3 (1.8-7.8); Neutrophils % 59.4 % (37.0-80.0); Platelet Count 258 K/mm3 (142-424); Red Blood Count 5.73 M/mm3 (4.60-6.20); Red Cell Distribution Width 14.6 % (11.5-17.5); White Blood Count 9.3 K/mm3 (4.8-10.8)
[2024-09-26 17:49] LABS: Albumin Level 3.9 g/dl (3.5-5.0); Chloride 100 mmol/L (98-107); Potassium 3.7 mmoL/L (3.5-5.1); Sodium 141 mmol/L (136-145)
[2024-09-26] MEDS: ACETAMINOPHEN 500MG TAB 1000 MG PO (17:50)
[2024-09-26] MEDS: KETOROLAC 30MG/ML VIAL 15 MG IV (17:50)
[2024-09-26 17:52] LABS: Alanine Aminotransferase 31 U/L (12-78); Albumin/Globulin Ratio 1.1 (1.1-1.8); Alkaline Phosphatase 94 U/L (38-126); Anion Gap 10.7 mEq/L (5-15); Aspartate Amino Transferase 32 U/L (17-59); Bilirubin,Total 0.6 mg/dl (0.2-1.3); Blood Urea Nitrogen 17 mg/dl (9-20); Calcium 8.9 mg/dl (8.4-10.2); Carbon Dioxide 34 mmol/L (22.0-30.0); Creatinine Clearance Estimated 71 mL/min (50-200); Estimated Glomerular Filt Rate 59 ml/min (>60); GFR (African American) 71 ML/MIN (>60); Globulin 3.7 g/dL (1.3-3.2); Glucose 98 mg/dl (74-100); Total Protein,Serum 7.6 g/dl (6.3-8.2)
[2024-09-26 18:01] VITALS: BP 128/88; PULSE 70; O2SAT 92
[2024-09-26 18:04] LABS: Troponin I 0.03 ng/ml (0.00-0.034)
[2024-09-26 19:00] VITALS: BP 146/88; PULSE 78; O2SAT 96
--- NOTE | 2024-09-26 19:06 | XR_ITS ---
PROCEDURE INFORMATION: Exam: XR Chest Exam date and time: 09/26/2024 7:02 PM Age: 49 years old Clinical indication: Shortness of breath; Additional info: Cough, SOA TECHNIQUE: Imaging protocol: Radiologic exam of the chest. Views: 1 view. COMPARISON: CR XR CHEST PORTABLE 09/26/2024 6:51 PM FINDINGS: Lungs: Suggestion of mild pulmonary vascular congestion. Pleural spaces: No pleural effusion. No pneumothorax. Heart/Mediastinum: Cardiomegaly. Bones/joints: Unremarkable. IMPRESSION: Suboptimal evaluation of the lungs. Suggestion of mild pulmonary vascular congestion.
[2024-09-26 19:30] VITALS: BP 150/94; PULSE 78; O2SAT 94
[2024-09-26 20:00] VITALS: BP 152/78; PULSE 74; O2SAT 94
--- NOTE | 2024-09-26 20:40 | PC.NURSE ---
Patient refuses to lay in bed and wear vital sign monitoring equipment
[2024-09-26 20:48] LABS: Troponin I 0.02 ng/ml (0.00-0.034)
[2024-09-26 21:01] VITALS: BP 138/74; PULSE 74; RESP 18; TEMP 36.6; O2SAT 96
== END 2024-09-26 21:06 | disposition home or self-care (01) ==
PROVIDERS: Emergency Provider Emergency Medicine
DX: R07.9 Chest pain, unspecified (principal); R05.9 Cough, unspecified
CPT/HCPCS: 71045; 80053; 83880; 84484; 85025; 87636; 93005; 96374; 99284; J1885

== ENCOUNTER 2025-03-23 19:14 | Emergency (ER) | payer MEDICARE, OTHER, SELFPAY ==
--- NOTE | 2025-03-23 19:33 | ED_ITS ---
<Statement entered by Nick Harris MD - 03/24/25 01:09> Patient has significant fungal disease of at his intertriginous areas. He has a very small abscess in his left groin. I was present and available for the incision and drainage. He is not exhibiting any sepsis criteria, not systemically ill. I have a very low suspicion for any necrotizing soft tissue infection given patient's overall reassuring exam with no crepitus around and reassuring hematologic labs. Strict return precautions are discussed with patient. I was consulted by the MILO, and we discussed the complexity of problems being addressed. I approved the treatment and management plan for this patient's care in the emergency department, thus performing a substantial portion of the medical decision making. Nick Harris MD Discharge Plan Disposition Chief Complaint: Skin/Abscess/Foreign Body Prescriptions Prescriptions: New sulfamethoxazole-trimethoprim [Bactrim DS] 800-160 mg tablet 1 tab PO BID 10 Days Qty: 20 0RF nystatin 100,000 unit/gram powder 1 applic topical BID Qty: 60 0RF Referrals Follow up/Referrals: Domonique Quintero MD [Referring] - See instructions Provider,MD Husam [Referring] - See instructions Real Najera MD [Staff Physician] - See instructions (Abscess left groin) Instructions Patient Instructions: DI for Skin Abscess Print Language Print Language: Tuvaluan Discharge ED Provider: Nick Harris General Adult HPI General Chief complaint: Skin/Abscess/Foreign Body Stated complaint: Bite Under Groin Area and under belly Time Seen by Provider: 03/23/25 19:33 History of Present Illness HPI narrative: Patient presents for evaluation of multiple skin issues. Patient reports he has a bite in his left groin but also in one of his intertriginous folds of his pannus. Patient denies any fever chills shortness of breath hemoptysis hematochezia melena nausea vomiting diarrhea. The 1 on the left side of his pannus appears to be a fungal infection and the one in his groin is superior to the genitalia and the pubic pannus. It appears to be spontaneously draining. Related Data Previous Rx's ?Medication ?Instructions ?Recorded nystatin 100,000 unit/gram topical 1 applic topical BID #60 grams 03/23/25 powder sulfamethoxazole 800 1 tab PO BID 10 days #20 tabs 03/23/25 mg-trimethoprim 160 mg tablet (Bactrim DS) Allergies Allergy/AdvReac Type Severity Reaction Status Date / Time guaifenesin (From Robitussin) Allergy Other Verified 07/30/24 15:32 pseudoephedrine Allergy Other Verified 07/30/24 15:32 PFSH [facility] Disclaimer: The information contained in this section may have been updated after the patient was seen, as this information can be updated by other users. Family History Grandfather Cancer Father Cancer Social History (Updated 09/26/24 @ 23:37 by Jasmin Carpenter DO) Smoking Status: Never smoker alcohol intake: current alcohol intake frequency: a few times a month substance use type: denies use current occupational status: unemployed and disabled Travel in the last 8 weeks?: None household members: significant other housing: house Have you lived/traveled outside US in past 30 days?: No Contact w/someone who lives/traveled outside US past 30 days?: No Exposure to someone with infectious disease in past 14 days?: No Do you have a fever (greater than 100.4 F or 38 C)?: No Have you tested positive for COVID-19?: No Exposed to someone with COVID-19 in past 14 days?: No Do you have a sore throat?: No Do you have a cough?: No Do you have any weakness?: No Do you have any diarrhea?: No Are you experiencing any unusual bleeding?: No Do you have any muscle aches/pain?: No Do you have any abdominal pain?: No Are you experiencing loss of taste or smell?: No Other Medical History Have you received the Flu Vaccine for this season: No Have you received the Pneumonia Vaccine: No ROS Obtained: Yes Systems reviewed as appropriate & no additional complaints except as documented Physical Exam General General appearance: alert and in no apparent distress Respiratory Respiratory exam: Present normal lung sounds bilaterally Cardiovascular Cardiovascular exam: Present regular rate Neurological Exam Neurological exam: Present alert and oriented X3 Medical Decision Making Medical Records Medical records reviewed: Yes I reviewed the patient's medical records. Screening: Per USPSTF and CDC recommendations, given the prevalence of disease in our region, it is our hospital?s policy to screen for HIV and viral Hepatitis for all patients aged 18 and over and those with ongoing risk factors. Michael Inquiry Pt receiving controlled substance: No Vital Signs: 03/23/25 19:44 Temperature 98.1 F Temperature Source Oral Pulse Rate [Left] 72 Respiratory Rate 18 Blood Pressure [Right Arm] 165/119 H Blood Pressure Mean [Right Arm] 134 Blood Pressure Source [Right Arm] Automatic Cuff Blood Pressure Position [Right Arm] Sitting 02 Sat by Pulse Oximetry 96 Oxygen Delivery Method Room Air Lab Data Lab results reviewed: Yes I reviewed the patient's lab results. Lab Results 03/23/25 20:38: WBC 9.7, RBC 5.79, Hgb 16.3, Hct 51.4, MCV 88.8, MCH 28.2, MCHC 31.7 L, RDW 14.6, Plt Count 223, MPV 8.8, Neut % (Auto) 74.3, Lymph % (Auto) 16.0, [place] % (Auto) 5.9, Eos % (Auto) 3.1, Baso % (Auto) 0.6, Neut # (Auto) 7.2, Lymph # (Auto) 1.6, [place] # (Auto) 0.6, Eos # (Auto) 0.3, Baso # (Auto) 0.1, Sodium 137, Potassium 3.7, Chloride 102, Carbon Dioxide 33 H, Anion Gap 5.7, BUN 15, Creatinine 1.00, Estimated Creat Clear 92, Estimated GFR 79, Est GFR ( Amer) 96, Glucose 132 H, Calcium 8.4, Total Bilirubin 0.5, AST 24, ALT 22, Alkaline Phosphatase 80, Total Protein 7.0, Albumin 3.7, Globulin 3.3 H, Albumin/Globulin Ratio 1.1, Procalcitonin 0.046 03/23/25 20:38 03/23/25 20:38 Orders (Tests/Meds): ED MEDICATIONS Discontinued Medications Generic Name Dose Route Start Last Admin Trade Name Freq PRN Reason Stop Dose Admin Lidocaine/Epinephrine 10 ml 03/23/25 19:47 Lidocaine 1% W/Epi 1:100,000 20ml Vial SQ 03/23/25 19:48 ONCE ONE Trimethoprim/Sulfamethoxazole 1 each 03/23/25 21:21 Sulfa/Trimethoprim 1 Tablet PO 03/23/25 21:22 ONCE ONE ORDERS Category Date Time Status CT abdomen pelvis w con Stat Cat Scan 03/23/25 19:47 Ordered CBC w/Auto Diff [Complete Blood Count Auto Diff] Stat Lab 03/23/25 20:38 Completed CMP [Comprehensive Metabolic Panel] Stat Lab 03/23/25 20:38 Completed Procalcitonin Stat Lab 03/23/25 20:38 Completed Blood Culture Stat Micro 03/23/25 21:13 Received Wound Culture and Gram Stain Stat Micro 03/23/25 19:47 Ordered Medical Decision Narrative: In summary patient is a 49-year-old male who presents to the emergency department for evaluation of for multiple skin complaints but primarily intertriginous fungal infections and an abscess in his left groin. Patient is hypertensive on arrival with a blood pressure 165/119 however heart rate 72 normal sinus rhythm on the bedside monitor breathing 18 times a minute satting at 96% on room air upon arrival, afebrile at 90.1. Physical exam is remarkable for a well-nourished well-developed severely morbidly obese, with a BMI of 86 and a weight of 584 pounds, 49-year-old male who is otherwise in no acute distress. Patient has what appears to be fungal infection in all of his intra Jenness folds however in the area of concern on the left abdominal pannus fold has what appears to be lichenified but no induration or fluctuance. Patient has a proximately 3 cm area in the pubic pannus and then Trajenta's fold that has stigmata of spontaneous drainage however I am unable to express anything currently.. Differential diagnosis includes abscess versus diabetes mellitus versus tinea corporis versus sepsis etc. Initial workup will be conducted with hematologic labs and blood cultures. I considered CT imaging however patient is too heavy for CAT scan ear. Moreover, patient's LINREC score is 4 or less indicating low risk of necrotizing soft tissue infection. Additionally clinical exam does not support that given the location and findings on physical exam that this is a very superficial infection and not a deep space.. Given this I performed a local I&D and sent a wound culture and start the patient on Bactrim. Additionally I am prescribing him nystatin for his intertriginous areas. I am referring him to dermatology but in the meantime I will also refer him to general surgery for follow-up of the abscess. He has to follow-up with his PCP within 48 hours for recheck of his intertriginous areas and fungal skin infections. Patient given strict return precautions Procedures Abscess I/D Site: other (Left groin) Side (if applicable): left Sedation/analgesia: none Local Anesthetic: lidocaine 1% and with epi Amount of anesthesia used (mL): 5 Technique: incised with #11 blade Amount of fluid expressed (mL): 3 Irrigation: No Packing used?: iodoform Critical Care Critical Care Time Critical Care Time: Yes Attestation: On 03/23/25, the high probability of a clinically significant, sudden or life threatening deterioration of the following system(s) required my full and direct attention, intervention and personal management. The time I documented below is in addition to time spent performing reported procedures but includes the following listed in this critical care notation. Total Time Total Critical Care Time: 30
[2025-03-23 19:44] VITALS: BP 165/119; PULSE 72; RESP 18; TEMP 36.7; O2SAT 96; BMI 86.0
[2025-03-23 20:54] LABS: Basophils # 0.1 K/mm3 (0-0.2); Basophils % 0.6 % (0.1-2.0); Eosinophils # 0.3 Kmm3 (0.0-0.4); Eosinophils % 3.1 % (0.1-12.0); Hematocrit 51.4 % (42.0-52.0); Hemoglobin 16.3 g/dL (14.1-18.0); Immature Granulocytes # 0.01 10^3uL; Immature Granulocytes % 0.1 %; Lymphocytes # 1.6 K/mm3 (0.7-4.5); Mean Corpuscular HGB Conc 31.7 g/dL (31.8-35.4); Mean Corpuscular Hemoglobin 28.2 pg (27.0-31.2); Mean Corpuscular Volume 88.8 fl (80-94); Mean Platelet Volume 8.8 fl (7.4-10.4); Monocytes # 0.6 K/mm3 (0.1-1.0); Monocytes % 5.9 % (1.7-9.3); Neutrophils # 7.2 K/mm3 (1.8-7.8); Neutrophils % 74.3 % (37.0-80.0); Nucleated Red Blood Cells # 0 10^3/uL; Nucleated Red Blood Cells % 0 %; Platelet Count 223 K/mm3 (142-424); Red Blood Count 5.79 M/mm3 (4.60-6.20); Red Cell Distribution Width 14.6 % (11.5-17.5); Red Cell Distribution Width-SD 47.3 fL; White Blood Count 9.7 K/mm3 (4.8-10.8)
[2025-03-23 20:57] LABS: Albumin Level 3.7 g/dl (3.5-5.0); Chloride 102 mmol/L (98-107); Sodium 137 mmol/L (136-145)
[2025-03-23 20:58] LABS: Potassium 3.7 mmoL/L (3.5-5.1)
[2025-03-23 21:00] LABS: Alanine Aminotransferase 22 U/L (12-78); Albumin/Globulin Ratio 1.1 (1.1-1.8); Alkaline Phosphatase 80 U/L (38-126); Anion Gap 5.7 mEq/L (5-15); Aspartate Amino Transferase 24 U/L (17-59); Bilirubin,Total 0.5 mg/dl (0.2-1.3); Blood Urea Nitrogen 15 mg/dl (9-20); Carbon Dioxide 33 mmol/L (22.0-30.0); Creatinine Clearance Estimated 92 mL/min (50-200); Estimated Glomerular Filt Rate 79 ml/min (>60); GFR (African American) 96 ML/MIN (>60); Globulin 3.3 g/dL (1.3-3.2)
[2025-03-23 21:01] LABS: Calcium 8.4 mg/dl (8.4-10.2); Glucose 132 mg/dl (74-100)
[2025-03-23 21:31] LABS: Procalcitonin 0.046 ng/mL (0.0-2.0)
[2025-03-23] MEDS: LIDOCAINE 1% W/EPI 1:100,000 20ML VIAL 10 ML SQ (21:47)
[2025-03-23] MEDS: SULFA/TRIMETHOPRIM 1 TABLET 1 EACH PO (21:51)
[2025-03-23 22:02] VITALS: BP 167/107; PULSE 75; RESP 18; TEMP 36.7; O2SAT 95
== END 2025-03-23 22:04 | disposition home or self-care (01) ==
PROVIDERS: Physician Assistant; Emergency Provider Emergency Medicine; PCP Internal Medicine
DX: L02.214 Cutaneous abscess of groin (principal); B37.2 Candidiasis of skin and nail; B96.89 Other specified bacterial agents as the cause of diseases classified elsewhere; E66.01 Morbid (severe) obesity due to excess calories; I10 Essential (primary) hypertension; Z68.45 Body mass index [BMI] 70 or greater, adult
CPT/HCPCS: 10061; 80053; 84145; 85025; 87040; 87070; 87077; 87205; 99284; J2004

== ENCOUNTER 2025-04-23 23:53 | Emergency (ER) | payer MEDICARE, OTHER, SELFPAY ==
[2025-04-24 00:05] VITALS: BP 166/104; PULSE 69; RESP 24; TEMP 37.1; O2SAT 91; BMI 83.4
--- NOTE | 2025-04-24 00:21 | ED_ITS ---
Discharge Plan Disposition Patient Disposition: Home, Self-Care Prescriptions Prescriptions: No Action sulfamethoxazole-trimethoprim [Bactrim DS] 800-160 mg tablet 1 tab PO BID 10 Days Qty: 20 0RF nystatin 100,000 unit/gram powder 1 applic topical BID Qty: 60 0RF Referrals Follow up/Referrals: Provider,Referral, [Primary Care Provider, Medical] - See instructions Activity Restrictions/Add. Instructions Additional Instructions/Restrictions: Please take Tylenol and ibuprofen as needed for pain. Clinical Impressions Clinical Impression: Arm pain Qualifiers: Laterality: right Qualified Code(s): M79.601 - Pain in right arm Print Language Print Language: Belarusian Discharge ED Provider: Juan C De Souza General Adult HPI General Chief complaint: Fall Stated complaint: fall 04/22, pain r arm, difficulty moving it Time Seen by Provider: 04/23/25 23:57 Mode of Arrival: Ambulatory Source of Information: Patient Description of Symptoms (Recalled from ER Triage Doc. by RN): Pt states he tripped on a small rock yesterday and fel onto his right side. Pt states he is having pain in his right forearm that started a few hours ago. Pt rated pain at rest @ 0/10. Pt states he has pain while attempting to raise arm up. History of Present Illness HPI narrative: 49-year-old male with history of severe obesity presents after a fall. He reports that he fell either yesterday or the day before and landed on his right arm. He reports some pain in his right forearm and pain with range of motion of the arm. Denies any other pain or issues. Related Data Previous Rx's ?Medication ?Instructions ?Recorded nystatin 100,000 unit/gram topical 1 applic topical BI D #60 grams 03/23/25 powder sulfamethoxazole 800 1 tab PO BID 10 days #20 tab s 03/23/25 mg-trimethoprim 160 mg tablet (Bactrim DS) Allergies Allergy/AdvReac Type Severity Reaction Status Date / Time guaifenesin (From Robitussin) Allergy Other Verified 07/30/24 15:32 pseudoephedrine Allergy Other Verified 07/30/24 15:32 [facility] Disclaimer: The information contained in this section may have been updated after the patient was seen, as this information can be updated by other users. Medical History (Updated 04/24/25 @ 03:02 by Juan C De Souza MD) Occasional tremors Sleep apnea Family History Grandfather Cancer Father Cancer Social History (Updated 04/24/25 @ 00:19 by Cuca Naik RN) Smoking Status: Never smoker alcohol intake: never substance use type: denies use current occupational status: unemployed and disabled Travel in the last 8 weeks?: None household members: significant other housing: house Contact w/someone who lives/traveled outside US past 30 days?: No Exposure to someone with infectious disease in past 14 days?: No Do you have a fever (greater than 100.4 F or 38 C)?: No Have you tested positive for COVID-19?: No Exposed to someone with COVID-19 in past 14 days?: No Do you have a sore throat?: No Do you have a cough?: No Do you have any weakness?: No Are you experiencing any nausea/vomitting?: No Do you have any diarrhea?: No Are you experiencing any unusual bleeding?: No Do you have any muscle aches/pain?: Yes Do you have any abdominal pain?: No Are you experiencing loss of taste or smell?: No Other Medical History Have you received the Flu Vaccine for this season: No Have you received the Pneumonia Vaccine: No ROS Obtained: Yes All systems reviewed & no additional complaints except as documented Physical Exam General General appearance: alert, in no apparent distress and obese Head Head exam: atraumatic and normocephalic Eye Eye exam: Present normal appearance, PERRL and EOMI ENT ENT exam: Present normal oropharynx and normal external ear exam Neck Neck exam: Present normal inspection and full ROM Chest Chest inspection: Present normal inspection and symmetric chest wall rise; Absent tenderness Respiratory Respiratory exam: Present normal lung sounds bilaterally; Absent respiratory distress Cardiovascular Cardiovascular exam: Present regular rate and normal rhythm Abdominal Exam Abdominal exam: Present soft; Absent distention, tenderness or guarding Extremities Exam Extremities exam: Present normal inspection and tenderness (Tenderness to palpation of the forearm and wrist); Absent edema or joint swelling Back Exam Back exam: Present normal inspection; Absent tenderness Neurological Exam Neurological exam: Present alert and oriented X3; Absent motor sensory deficit Psychiatric Psychiatric exam: Present normal affect and normal mood Skin Skin exam: Present warm, dry and normal color Lymphatic Lymphatic Findings: no adenopathy Medical Decision Making Medical Records Medical records reviewed: Yes I reviewed the patient's medical records. Screening: Per USPSTF and CDC recommendations, given the prevalence of disease in our region, it is our hospital?s policy to screen for HIV and viral Hepatitis for all patients aged 18 and over and those with ongoing risk factors. Michael Inquiry Pt receiving controlled substance: No Michael was queried for this patient: No Vital Signs: 04/24/25 00:05 04/24/25 00:30 Temperature 98.8 F Temperature Source Oral Pulse Rate 68 Pulse Rate [Left] 69 Respiratory Rate 24 Blood Pressure 150/92 H Blood Pressure [Left Arm] 166/104 H Blood Pressure Mean 117 Blood Pressure Mean [Left Arm] 124 Blood Pressure Source [Left Arm] Automatic Cuff Blood Pressure Position [Left Arm] Supine 02 Sat by Pulse Oximetry 91 L 94 L Oxygen Delivery Method Room Air Lab Data Lab results reviewed: Yes I reviewed the patient's lab results. Orders (Tests/Meds): ORDERS Category Date Time Status Elbow XR right minimum 3 views [XR elbow RT min 3V] Exams 04/24/25 02:18 Completed Stat Forearm XR right 2 views [XR forearm RT 2V] Stat Exams 04/24/25 00:25 Completed Hand XR right minimum 3 views [XR hand RT min 3V] Stat Exams 04/24/25 00:25 Completed Humerus XR right [XR humerus RT] Stat Exams 04/24/25 00:25 Completed Wrist XR right 2 views [XR wrist RT 2V] Stat Exams 04/24/25 00:25 Completed Medical Decision Narrative: 49-year-old male with history of severe morbid obesity presents for pain in his right arm after a fall couple of days ago. History was obtained via interactive discussion with patient. On arrival, patient is [afebrile, hemodynamically stable, satting appropriately, alert, oriented x4, GCS 15], moving all extremities spontaneously. Full physical exam performed and significant for some tenderness to the right forearm, no laceration or abrasion, no obvious bruising. Intact range of motion. No tenderness to the shoulder. Differential includes but is not limited to fracture, dislocation, neurovascular/ligamentous injury, bruising. Radiographs of the right upper extremity were obtained and interpreted by me, no evidence of acute fracture or dislocation. These findings were communicated to patient and he was discharged in stable condition. Procedures Risk/Benefits of Procedure(s) Were Explained: Yes Critical Care Critical Care Time Critical Care Time: No
--- NOTE | 2025-04-24 00:25 | XR_ITS ---
PROCEDURE INFORMATION: Exam: XR Right Wrist Exam date and time: 04/24/2025 1:47 AM Age: 49 years old Clinical indication: Pain; Lower or forearm and upper arm; Right; Additional info: Fall, pain TECHNIQUE: Imaging protocol: Radiologic exam of the right wrist. Views: 1 or 2 views. COMPARISON: CR XR WRIST RT 2V 04/24/2025 1:47 AM FINDINGS: Bones/joints: Normal. Soft tissues: Normal. IMPRESSION: No acute findings.
--- NOTE | 2025-04-24 00:25 | XR_ITS ---
PROCEDURE INFORMATION: Exam: XR Right Humerus Exam date and time: 04/24/2025 1:53 AM Age: 49 years old Clinical indication: Pain; Lower or forearm and upper arm; Right; Additional info: Fall, pain TECHNIQUE: Imaging protocol: Radiologic exam of the right humerus. Views: 2 or more views. COMPARISON: CR XR CHEST PORTABLE 09/26/2024 7:02 PM FINDINGS: Bones/joints: Normal. Soft tissues: Normal. IMPRESSION: No acute findings.
--- NOTE | 2025-04-24 00:25 | XR_ITS ---
PROCEDURE INFORMATION: Exam: XR Right Hand Exam date and time: 04/24/2025 1:47 AM Age: 49 years old Clinical indication: Pain; Lower or forearm and upper arm; Right; Additional info: Fall, pain TECHNIQUE: Imaging protocol: Radiologic exam of the right hand. Views: 3 or more views. COMPARISON: CR XR FOREARM RT 2V 04/24/2025 1:47 AM FINDINGS: Bones/joints: Normal. Soft tissues: Normal. IMPRESSION: No acute findings.
--- NOTE | 2025-04-24 00:25 | XR_ITS ---
PROCEDURE INFORMATION: Exam: XR Right Forearm Exam date and time: 04/24/2025 1:47 AM Age: 49 years old Clinical indication: Pain; Lower or forearm and upper arm; Right; Additional info: Fall, pain TECHNIQUE: Imaging protocol: Radiologic exam of the right forearm. Views: 2 views. COMPARISON: CR XR FOREARM RT 2V 04/24/2025 1:47 AM FINDINGS: Bones/joints: Normal. Soft tissues: Normal. IMPRESSION: No acute findings.
[2025-04-24 00:30] VITALS: BP 150/92; PULSE 68; O2SAT 94
--- NOTE | 2025-04-24 02:18 | XR_ITS ---
PROCEDURE INFORMATION: Exam: XR Right Elbow Exam date and time: 04/24/2025 2:23 AM Age: 49 years old Clinical indication: Pain; Lower or forearm and upper arm; Right; Additional info: Fall, pain TECHNIQUE: Imaging protocol: Radiologic exam of the right elbow. Views: 3 or more views. COMPARISON: CR XR HUMERUS RT 04/24/2025 1:53 AM FINDINGS: Bones/joints: Normal. Soft tissues: Normal. IMPRESSION: No acute findings.
[2025-04-24 03:15] VITALS: BP 138/78; PULSE 80; RESP 18; TEMP 36.4; O2SAT 99
== END 2025-04-24 03:16 | disposition home or self-care (01) ==
PROVIDERS: Emergency Provider Emergency Medicine
DX: M79.631 Pain in right forearm (principal); E66.01 Morbid (severe) obesity due to excess calories; W19.XXXA Unspecified fall, initial encounter
CPT/HCPCS: 73060; 73080; 73090; 73100; 73130; 99284

== ENCOUNTER 2025-08-29 13:01 | Emergency (ER) | payer MEDICARE, OTHER, SELFPAY ==
[2025-08-29] VITALS (81 sets, daily range): BP systolic 67–149; BP diastolic 35–87; PULSE 60–89; RESP 13–26; TEMP 35.3–36.5; O2SAT 90–99; BMI 86.0
--- NOTE | 2025-08-29 13:00 | XR_ITS ---
PROCEDURE INFORMATION: Exam: XR Chest Exam date and time: 08/29/2025 2:25 PM Age: 50 years old Clinical indication: Other: AMS, short of breath, hypoxic TECHNIQUE: Imaging protocol: Radiologic exam of the chest. Views: 1 view. COMPARISON: CR XR CHEST PORTABLE 03/03/2023 9:10 PM FINDINGS: Lungs: Opacity in left base may represent atelectasis or pneumonia.. Pleural spaces: There may be mild to moderate left pleural effusion Heart/Mediastinum: Cardiomegaly and mild vascular prominence may represent interstitial edema or congestive heart failure.. Bones/joints: Unremarkable. IMPRESSION: 1. Cardiomegaly and mild vascular prominence may represent interstitial edema or congestive heart failure.. 2. Opacity in left base may represent atelectasis or pneumonia..
--- NOTE | 2025-08-29 13:04 | ED_ITS ---
Discharge Plan Disposition Patient Disposition: Xfer Other Condition: Critical Prescriptions Prescriptions: No Action sulfamethoxazole-trimethoprim [Bactrim DS] 800-160 mg tablet 1 tab PO BID 10 Days Qty: 20 0RF nystatin 100,000 unit/gram powder 1 applic topical BID Qty: 60 0RF Clinical Impressions Clinical Impression: Acute renal failure, Acute hepatic failure, Sepsis, Acute and chronic respiratory failure with hypoxia Instructions Patient Instructions: DI for Altered Mental Status, Medical Restraints Print Language Print Language: Ivorian Discharge ED Provider: Garrett Umaña HPI <Garrett Umaña MD - Last Filed: 08/29/25 14:22> General Chief Complaint: Altered Mental Status Stated Complaint: unresponsive Time Seen by Provider: 08/29/25 13:04 History of Present Illness HPI narrative: Albino Davila is a 50y male with past medical history of morbid obesity, dermatitis, obstructive sleep apnea, who presents to the emergency department via EMS for unresponsiveness. Per EMS, he has been unresponsive in bed for the past 2 days. When they initially got to him, they state he was facedown in his bed covered in feces and was initially unresponsive but breathing. He was hypoxic to 80%. He has since become more responsive and arrived on nonrebreather mask. They state his fingerstick blood glucose was 190. Per on scene, patient stated recently that he was suicidal. Here, patient is somnolent but will awaken and answer questions. He denies any suicidal ideation or pain. Related Data Previous Rx's ?Medication ?Instructions ?Recorded nystatin 100,000 unit/gram topical 1 applic topical BI D #60 grams 03/23/25 powder sulfamethoxazole 800 1 tab PO BID 10 days #20 tab s 03/23/25 mg-trimethoprim 160 mg tablet (Bactrim DS) Allergies Allergy/AdvReac Type Severity Reaction Status Date / Time guaifenesin (From Robitussin) Allergy Other Verified 07/30/24 15:32 pseudoephedrine Allergy Other Verified 07/30/24 15:32 PFS <Garrett Umaña MD - Last Filed: 08/29/25 14:22> [facility] Disclaimer: The information contained in this section may have been updated after the patient was seen, as this information can be updated by other users. Medical History (Updated 08/29/25 @ 21:34 by Paris Timmons DO) Occasional tremors Sleep apnea Family History Grandfather Cancer Father Cancer Social History (Updated 04/24/25 @ 00:19 by Cuca Naik RN) Smoking Status: Never smoker alcohol intake: never substance use type: denies use current occupational status: unemployed and disabled Travel in the last 8 weeks?: None household members: significant other housing: house Have you lived/traveled outside [place] in past 30 days?: No Contact w/someone who lives/traveled outside US past 30 days?: No Exposure to someone with infectious disease in past 14 days?: No Do you have a fever (greater than 100.4 F or 38 C)?: No Have you tested positive for COVID-19?: No Exposed to someone with COVID-19 in past 14 days?: No Do you have a sore throat?: No Do you have a cough?: No Do you have any weakness?: No Do you have any diarrhea?: No Are you experiencing any unusual bleeding?: No Do you have any muscle aches/pain?: No Do you have any abdominal pain?: No Are you experiencing loss of taste or smell?: No Other Medical History Have you received the Flu Vaccine for this season: No Have you received the Pneumonia Vaccine: No <Garrett Umaña MD - Last Filed: 08/29/25 14:22> ROS Obtained: Yes Systems reviewed as appropriate & no additional complaints except as documented Physical Exam <Garrett Umaña MD - Last Filed: 08/29/25 14:22> General General appearance: alert and obese Comment: Somnolent but will wake and tell you his name. Moving all extremities. Head Head exam: atraumatic Eye Eye exam: Present normal appearance ENT ENT exam: Present mucous membranes dry and normal external ear exam Neck Neck exam: Present full ROM Chest Chest inspection: Present symmetric chest wall rise Respiratory Respiratory exam: Present respiratory distress; Absent normal lung sounds bilaterally (Diminished bilaterally), wheezes or stridor Cardiovascular Cardiovascular exam: Present regular rate and normal rhythm Abdominal Exam Abdominal exam: Present soft; Absent tenderness or guarding exam: Present deferred Extremities Exam Extremities exam: Present normal inspection and cyanosis (Cold extremities with cyanosis to the plantar aspect of both feet) Back Exam Back exam: Present normal inspection Neurological Exam Neurological exam: Present other (GCS 13 due to confusion and keeping eyes closed but will open with verbal stimuli. Moving all extremities. Following commands.) Psychiatric Psychiatric exam: Present other (Unable to assess secondary to mental status) Skin Skin exam: Present warm, dry and rash HEART Score <Garrett Umaña MD - Last Filed: 08/29/25 14:22> HEART Score HEART Score assessment performed?: No Procedures <Paris Timmons DO - Last Filed: 08/29/25 21:34> Intubation Mallampati Score:: Class II Time out performed: Yes sedative: Etomidate Mg Given: 40 Laryngoscope: Dre ET Tube Size: 7.5 ET Tube Uncuffed: No Tube Secured Depth (cm): 26 Tube Secured Location: lips Tube Placement Confirmation: visualized tube passing through cords Patient Tolerated Procedure: well Intubation Complications: none Critical Care <Garrett Umaña MD - Last Filed: 08/29/25 14:22> Critical Care Time Critical Care Time: Yes Attestation: On 08/29/25, the high probability of a clinically significant, sudden or life threatening deterioration of the following system(s) required my full and direct attention, intervention and personal management. The time I documented below is in addition to time spent performing reported procedures but includes the following listed in this critical care notation. Total Time Total Critical Care Time: 35 <Paris Timmons DO - Last Filed: 08/29/25 21:34> Total Time Total Critical Care Time: 95 Medical Decision Making <Garrett Umaña MD - Last Filed: 08/29/25 14:22> Michael Inquiry Pt receiving controlled substance: No Vital Signs Vital Signs: 08/29/25 13:00 08/29/25 13:00 08/29/25 13:20 Temperature Temperature Source Pulse Rate Pulse Rate [Left Radial] Respiratory Rate 18 Blood Pressure 98/76 L Blood Pressure [Right Arm] Blood Pressure Mean Blood Pressure Mean [Right Arm] Blood Pressure Source Blood Pressure Position 02 Sat by Pulse Oximetry 90 L 95 Oxygen Delivery Method BiPAP BiPAP Fraction of Inspired Oxygen 100 100 08/29/25 13:23 08/29/25 13:26 08/29/25 13:43 Temperature 97.7 F Temperature Source Temporal Artery Scan Pulse Rate 79 69 Pulse Rate [Left Radial] 83 Respiratory Rate 18 26 H 18 Blood Pressure 112/78 108/59 L Blood Pressure [Right Arm] 112/78 Blood Pressure Mean Blood Pressure Mean [Right Arm] 89 Blood Pressure Source Blood Pressure Position 02 Sat by Pulse Oximetry 98 97 97 Oxygen Delivery Method BiPAP BiPAP BiPAP Fraction of Inspired Oxygen 08/29/25 13:45 08/29/25 14:00 08/29/25 14:24 Temperature Temperature Source Pulse Rate 68 Pulse Rate [Left Radial] Respiratory Rate 18 19 Blood Pressure 85/66 L 87/39 L Blood Pressure [Right Arm] Blood Pressure Mean 66 Blood Pressure Mean [Right Arm] Blood Pressure Source Blood Pressure Position 02 Sat by Pulse Oximetry 98 Oxygen Delivery Method BiPAP Fraction of Inspired Oxygen 08/29/25 14:30 08/29/25 14:37 08/29/25 15:12 Temperature Temperature Source Pulse Rate 66 60 70 Pulse Rate [Left Radial] Respiratory Rate 14 15 16 Blood Pressure 149/77 H 128/68 123/76 Blood Pressure [Right Arm] Blood Pressure Mean Blood Pressure Mean [Right Arm] Blood Pressure Source Blood Pressure Position 02 Sat by Pulse Oximetry 97 96 97 Oxygen Delivery Method BiPAP BiPAP BiPAP Fraction of Inspired Oxygen 08/29/25 15:14 08/29/25 15:15 08/29/25 15:26 Temperature Temperature Source Pulse Rate 80 81 76 Pulse Rate [Left Radial] Respiratory Rate 21 22 25 H Blood Pressure 123/76 120/71 90/50 L Blood Pressure [Right Arm] Blood Pressure Mean Blood Pressure Mean [Right Arm] Blood Pressure Source Automatic Cuff Blood Pressure Position Supine 02 Sat by Pulse Oximetry 96 96 99 Oxygen Delivery Method BiPAP BiPAP BiPAP Fraction of Inspired Oxygen 08/29/25 15:28 08/29/25 15:30 08/29/25 15:30 Temperature Temperature Source Pulse Rate 78 74 75 Pulse Rate [Left Radial] Respiratory Rate 22 22 26 H Blood Pressure 90/50 L 98/54 L 98/54 L Blood Pressure [Right Arm] Blood Pressure Mean Blood Pressure Mean [Right Arm] Blood Pressure Source Automatic Cuff Manual Cuff/ Palpation Blood Pressure Position Supine 02 Sat by Pulse Oximetry 95 96 95 Oxygen Delivery Method BiPAP BiPAP Fraction of Inspired Oxygen 08/29/25 15:35 08/29/25 15:36 08/29/25 15:41 Temperature Temperature Source Pulse Rate 81 80 70 Pulse Rate [Left Radial] Respiratory Rate 22 18 17 Blood Pressure 111/75 111/75 114/82 Blood Pressure [Right Arm] Blood Pressure Mean Blood Pressure Mean [Right Arm] Blood Pressure Source Blood Pressure Position 02 Sat by Pulse Oximetry 97 96 96 Oxygen Delivery Method BiPAP BiPAP BiPAP Fraction of Inspired Oxygen 08/29/25 15:44 08/29/25 15:45 08/29/25 15:50 Temperature Temperature Source Pulse Rate 77 74 75 Pulse Rate [Left Radial] Respiratory Rate 22 18 17 Blood Pressure 114/82 113/58 L 101/59 L Blood Pressure [Right Arm] Blood Pressure Mean Blood Pressure Mean [Right Arm] Blood Pressure Source Blood Pressure Position 02 Sat by Pulse Oximetry 96 96 97 Oxygen Delivery Method BiPAP BiPAP BiPAP Fraction of Inspired Oxygen 08/29/25 15:55 08/29/25 16:00 08/29/25 16:05 Temperature Temperature Source Pulse Rate 76 79 83 Pulse Rate [Left Radial] Respiratory Rate 21 15 19 Blood Pressure 112/87 106/64 L 107/59 L Blood Pressure [Right Arm] Blood Pressure Mean Blood Pressure Mean [Right Arm] Blood Pressure Source Blood Pressure Position 02 Sat by Pulse Oximetry 97 96 95 Oxygen Delivery Method BiPAP Mechanical Ventilation Mechanical Ventilation Fraction of Inspired Oxygen 08/29/25 16:11 08/29/25 16:15 08/29/25 16:16 Temperature Temperature Source Pulse Rate 80 89 79 Pulse Rate [Left Radial] Respiratory Rate 13 21 14 Blood Pressure 107/70 L 114/86 110/64 Blood Pressure [Right Arm] Blood Pressure Mean Blood Pressure Mean [Right Arm] Blood Pressure Source Blood Pressure Position 02 Sat by Pulse Oximetry 99 93 L 97 Oxygen Delivery Method Mechanical Ventilation Mechanical Ventilation Mechanical Ventilation Fraction of Inspired Oxygen 08/29/25 16:23 08/29/25 16:24 08/29/25 16:25 Temperature Temperature Source Pulse Rate 77 64 76 Pulse Rate [Left Radial] Respiratory Rate 18 17 20 Blood Pressure 67/38 L 69/38 L 72/35 L Blood Pressure [Right Arm] Blood Pressure Mean Blood Pressure Mean [Right Arm] Blood Pressure Source Blood Pressure Position 02 Sat by Pulse Oximetry 93 L 92 L 90 L Oxygen Delivery Method Mechanical Ventilation Mechanical Ventilation Mechanical Ventilation Fraction of Inspired Oxygen 08/29/25 16:30 08/29/25 16:30 08/29/25 16:30 Temperature Temperature Source Pulse Rate 75 Pulse Rate [Left Radial] Respiratory Rate 16 22 Blood Pressure 95/54 L Blood Pressure [Right Arm] Blood Pressure Mean Blood Pressure Mean [Right Arm] Blood Pressure Source Blood Pressure Position 02 Sat by Pulse Oximetry 93 L 93 L 93 L Oxygen Delivery Method Mechanical Ventilation Mechanical Ventilation Fraction of Inspired Oxygen 100 100 08/29/25 16:35 08/29/25 17:19 08/29/25 17:53 Temperature 95.5 F L 96.8 F L Temperature Source Core Core Pulse Rate 72 76 Pulse Rate [Left Radial] Respiratory Rate 22 18 18 Blood Pressure 95/45 L 144/81 H 136/67 Blood Pressure [Right Arm] Blood Pressure Mean Blood Pressure Mean [Right Arm] Blood Pressure Source Automatic Cuff Blood Pressure Position Sitting 02 Sat by Pulse Oximetry 96 95 Oxygen Delivery Method Mechanical Ventilation Mechanical Ventilation Fraction of Inspired Oxygen 08/29/25 18:11 08/29/25 18:30 08/29/25 18:41 Temperature 96.8 F L 96.8 F L Temperature Source Core Core Pulse Rate 74 71 Pulse Rate [Left Radial] Respiratory Rate 18 22 22 Blood Pressure 146/73 H 125/79 Blood Pressure [Right Arm] Blood Pressure Mean Blood Pressure Mean [Right Arm] Blood Pressure Source Automatic Cuff Automatic Cuff Blood Pressure Position Sitting Sitting 02 Sat by Pulse Oximetry 94 L 94 L 96 Oxygen Delivery Method Mechanical Ventilation Room Air Fraction of Inspired Oxygen 100 08/29/25 18:50 08/29/25 19:00 08/29/25 19:00 Temperature 96.8 F L 96.8 F L Temperature Source Core Pulse Rate 69 70 Pulse Rate [Left Radial] Respiratory Rate 18 22 Blood Pressure 126/66 106/69 L Blood Pressure [Right Arm] Blood Pressure Mean 80 Blood Pressure Mean [Right Arm] Blood Pressure Source Blood Pressure Position 02 Sat by Pulse Oximetry 96 96 Oxygen Delivery Method Mechanical Ventilation Mechanical Ventilation Fraction of Inspired Oxygen 08/29/25 19:05 08/29/25 19:06 08/29/25 19:06 Temperature 96.8 F L 96.8 F L Temperature Source Pulse Rate 69 69 Pulse Rate [Left Radial] Respiratory Rate 22 23 Blood Pressure 111/68 Blood Pressure [Right Arm] Blood Pressure Mean 78 Blood Pressure Mean [Right Arm] Blood Pressure Source Blood Pressure Position 02 Sat by Pulse Oximetry 96 97 Oxygen Delivery Method Mechanical Ventilation Mechanical Ventilation Fraction of Inspired Oxygen 08/29/25 19:10 08/29/25 19:15 08/29/25 19:15 Temperature 96.8 F L 96.8 F L Temperature Source Pulse Rate 68 67 Pulse Rate [Left Radial] Respiratory Rate 22 22 Blood Pressure 115/74 Blood Pressure [Right Arm] Blood Pressure Mean 83 Blood Pressure Mean [Right Arm] Blood Pressure Source Blood Pressure Position 02 Sat by Pulse Oximetry 96 98 Oxygen Delivery Method Mechanical Ventilation Mechanical Ventilation Fraction of Inspired Oxygen 08/29/25 19:20 08/29/25 19:25 08/29/25 19:30 Temperature 96.8 F L 96.8 F L 96.8 F L Temperature Source Pulse Rate 67 66 66 Pulse Rate [Left Radial] Respiratory Rate 22 22 22 Blood Pressure Blood Pressure [Right Arm] Blood Pressure Mean Blood Pressure Mean [Right Arm] Blood Pressure Source Blood Pressure Position 02 Sat by Pulse Oximetry 98 98 98 Oxygen Delivery Method Mechanical Ventilation Mechanical Ventilation Mechanical Ventilation Fraction of Inspired Oxygen 08/29/25 19:30 08/29/25 19:33 08/29/25 19:35 Temperature 96.8 F L Temperature Source Pulse Rate 66 67 Pulse Rate [Left Radial] Respiratory Rate 22 Blood Pressure 106/70 L 106/70 L Blood Pressure [Right Arm] Blood Pressure Mean 79 Blood Pressure Mean [Right Arm] Blood Pressure Source Blood Pressure Position 02 Sat by Pulse Oximetry 97 Oxygen Delivery Method Mechanical Ventilation Fraction of Inspired Oxygen 08/29/25 19:40 08/29/25 19:45 08/29/25 19:45 Temperature 96.8 F L 96.8 F L Temperature Source Pulse Rate 66 66 Pulse Rate [Left Radial] Respiratory Rate 22 22 Blood Pressure 103/68 L Blood Pressure [Right Arm] Blood Pressure Mean 77 Blood Pressure Mean [Right Arm] Blood Pressure Source Blood Pressure Position 02 Sat by Pulse Oximetry 97 97 Oxygen Delivery Method Mechanical Ventilation Mechanical Ventilation Fraction of Inspired Oxygen 08/29/25 19:50 08/29/25 19:51 08/29/25 19:51 Temperature 96.8 F L 96.8 F L Temperature Source Pulse Rate 66 66 Pulse Rate [Left Radial] Respiratory Rate 22 22 Blood Pressure 109/64 L Blood Pressure [Right Arm] Blood Pressure Mean 79 Blood Pressure Mean [Right Arm] Blood Pressure Source Blood Pressure Position 02 Sat by Pulse Oximetry 97 97 Oxygen Delivery Method Mechanical Ventilation Mechanical Ventilation Fraction of Inspired Oxygen 08/29/25 19:55 08/29/25 19:55 08/29/25 20:00 Temperature 96.8 F L Temperature Source Pulse Rate 65 Pulse Rate [Left Radial] Respiratory Rate 22 Blood Pressure 108/71 L 110/71 Blood Pressure [Right Arm] Blood Pressure Mean 81 80 Blood Pressure Mean [Right Arm] Blood Pressure Source Blood Pressure Position 02 Sat by Pulse Oximetry 97 Oxygen Delivery Method Mechanical Ventilation Fraction of Inspired Oxygen 08/29/25 20:00 08/29/25 20:05 08/29/25 20:05 Temperature 96.8 F L 97.0 F L Temperature Source Pulse Rate 66 66 Pulse Rate [Left Radial] Respiratory Rate 19 22 Blood Pressure 112/72 Blood Pressure [Right Arm] Blood Pressure Mean 81 Blood Pressure Mean [Right Arm] Blood Pressure Source Blood Pressure Position 02 Sat by Pulse Oximetry 96 97 Oxygen Delivery Method Mechanical Ventilation Mechanical Ventilation Fraction of Inspired Oxygen 08/29/25 20:10 08/29/25 20:10 08/29/25 20:15 Temperature 97.0 F L 97.0 F L Temperature Source Pulse Rate 65 66 Pulse Rate [Left Radial] Respiratory Rate 22 22 Blood Pressure 103/64 L Blood Pressure [Right Arm] Blood Pressure Mean 73 Blood Pressure Mean [Right Arm] Blood Pressure Source Blood Pressure Position 02 Sat by Pulse Oximetry 97 97 Oxygen Delivery Method Mechanical Ventilation Mechanical Ventilation Fraction of Inspired Oxygen 08/29/25 20:15 08/29/25 20:20 08/29/25 20:20 Temperature 97.0 F L Temperature Source Pulse Rate 66 Pulse Rate [Left Radial] Respiratory Rate 22 Blood Pressure 113/66 117/70 Blood Pressure [Right Arm] Blood Pressure Mean 77 79 Blood Pressure Mean [Right Arm] Blood Pressure Source Blood Pressure Position 02 Sat by Pulse Oximetry 97 Oxygen Delivery Method Mechanical Ventilation Fraction of Inspired Oxygen 08/29/25 20:25 08/29/25 20:25 08/29/25 20:25 Temperature 97.0 F L Temperature Source Pulse Rate 66 Pulse Rate [Left Radial] Respiratory Rate 22 22 Blood Pressure 117/74 Blood Pressure [Right Arm] Blood Pressure Mean 84 Blood Pressure Mean [Right Arm] Blood Pressure Source Blood Pressure Position 02 Sat by Pulse Oximetry 96 96 Oxygen Delivery Method Mechanical Ventilation Fraction of Inspired Oxygen 100 08/29/25 20:30 08/29/25 20:30 08/29/25 20:35 Temperature 97.0 F L Temperature Source Pulse Rate 67 Pulse Rate [Left Radial] Respiratory Rate 22 Blood Pressure 108/72 L 102/58 L Blood Pressure [Right Arm] Blood Pressure Mean 81 78 Blood Pressure Mean [Right Arm] Blood Pressure Source Blood Pressure Position 02 Sat by Pulse Oximetry 95 Oxygen Delivery Method Mechanical Ventilation Fraction of Inspired Oxygen 08/29/25 20:35 08/29/25 20:40 08/29/25 20:40 Temperature 97.0 F L 97.0 F L Temperature Source Pulse Rate 65 65 Pulse Rate [Left Radial] Respiratory Rate 22 22 Blood Pressure 107/60 L Blood Pressure [Right Arm] Blood Pressure Mean 77 Blood Pressure Mean [Right Arm] Blood Pressure Source Blood Pressure Position 02 Sat by Pulse Oximetry 95 95 Oxygen Delivery Method Mechanical Ventilation Mechanical Ventilation Fraction of Inspired Oxygen 08/29/25 20:45 08/29/25 20:45 08/29/25 20:50 Temperature 97.0 F L Temperature Source Pulse Rate 64 Pulse Rate [Left Radial] Respiratory Rate 22 Blood Pressure 100/59 L 123/80 Blood Pressure [Right Arm] Blood Pressure Mean 70 91 Blood Pressure Mean [Right Arm] Blood Pressure Source Blood Pressure Position 02 Sat by Pulse Oximetry 96 Oxygen Delivery Method Mechanical Ventilation Fraction of Inspired Oxygen 08/29/25 20:55 08/29/25 20:55 Temperature 97.2 F L Temperature Source Pulse Rate 64 Pulse Rate [Left Radial] Respiratory Rate 22 Blood Pressure 109/70 L Blood Pressure [Right Arm] Blood Pressure Mean 83 Blood Pressure Mean [Right Arm] Blood Pressure Source Blood Pressure Position 02 Sat by Pulse Oximetry 95 Oxygen Delivery Method Mechanical Ventilation Fraction of Inspired Oxygen Lab Data Labs: Lab Results 08/29/25 13:02: VBG pH 7.16 L, VBG pCO2 64.0 H, VBG pO2 44.4 H, VBG HCO3 22.5 L, VBG Total CO2 24.5, VBG O2 Saturation 68.1, VBG Base Excess -6.1 L, VBG Lactic Acid 3.5 H 08/29/25 13:03: WBC 18.8 H, RBC 6.67 H, Hgb 18.4 H, Hct 60.9 H*, MCV 91.3, MCH 27.6, MCHC 30.2 L, RDW 18.0 H, Plt Count 189, MPV 10.5 H, Neut % (Auto) 68.9, L ymph % (Auto) 6.7 L, [place] % (Auto) 5.7, Eos % (Auto) 17.7 H, Baso % (Auto) 0.3, Neut # (Auto) 13.0 H, Lymph # (Auto) 1.3, [place] # (Auto) 1.1 H, Eos # (Auto) 3.3 H, Baso # (Auto) 0.1, Total Counted 100, Neutrophils % (Manual) 81 H, L ymphocytes % (Manual) 9 L, Monocytes % (Manual) 7, Eosinophils % (Manual) 3, Platelet Estimate Normal, RBC Morphology Normal, D-Dimer > 8.10 H, Sodium 149 H, Potassium 4.5, Chloride 66 L, Carbon Dioxide 18 L, Anion Gap 69.5 H, BUN 74 H, C reatinine 6.40 H, Estimated Creat Clear 14, Estimated GFR 9 L*, Est GFR ( Amer) 11 L*, Glucose 116 H, Calcium 2.7 L*, Phosphorus 10.2 H, Magnesium 1.8, T otal Bilirubin 1.9 H, AST 1497 H*, ALT 2516 H*, Alkaline Phosphatase 115, Total Creatine Kinase 1461 H*, Troponin I 4.91 H, C-Reactive Protein 126.0 H, NT-Pro-B Natriuret Pep 78229 H, Total Protein 6.1 L, Albumin 3.6, Globulin 2.5, Albumin/Globulin Ratio 1.4, Salicylates < 1.0 L, Acetaminophen < 10 L 08/29/25 13:04: HCV Ab ABENA w/Rflx PCR Qn Negative, HIV Ag/Ab Combo Qual Negative 08/29/25 13:29: Chlamy pneumoniae PCR Not detected, Adenovirus (PCR) Not detected, B. pertussis DNA (PCR) Not detected, Coronavirus OC43 (PCR) Not detected, Coronavirus HKU1 (PCR) Not detected, Coronavirus 229E (PCR) Not detected, SARS-CoV-2 (PCR) Not detected, Coronavirus NL63 (PCR) Not detected, Human Metapneumovir PCR Not detected, Influenza A (H1) PCR Not detected, Influ A (H1N1/09) PCR Not detected, Influenza A (H3) PCR Not detected, Influenza Type A (PCR) Not detected, Influenza Type B (PCR) Not detected, M. pneumoniae (PCR) Not detected, Parainfluenza 1 (PCR) Not detected, Parainfluenza 2 (PCR) Not detected, Parainfluenza 3 (PCR) Not detected, Parainfluenza 4 (PCR) Not detected, RSV (PCR) Not detected, Entero/Rhino (PCR) Not detected 08/29/25 14:43: VBG pH 7.05 L, VBG pCO2 91.7 H, VBG pO2 39.4, VBG HCO3 24.7, VBG Total CO2 27.5 H, VBG O2 Saturation 52.4, VBG Base Excess -5.8 L, VBG Lactic Acid 6.0 H 08/29/25 17:27: Specimen Source Left radial, O2 % 100, ABG pH 7.18 L*, ABG pCO2 65.5 H, ABG pO2 83.9, ABG HCO3 24.0, ABG Total CO2 26.0, ABG O2 Saturation 93, A BG Base Excess -4.4 L, [place] Test Patient unable, Vent Rate 22, Tidal Volume 480, PEEP 10 08/29/25 18:52: Urine Color Yellow, Urine Appearance Clear, Urine pH 5.0, Ur Specific [place] 1.015, Urine Protein 3+ A, Urine Glucose (UA) Negative, Urine Ketones 1+, Urine Blood 3+ A, Urine Nitrate Negative, Urine Bilirubin 2+ A, Urine Urobilinogen 1.0, Ur Leukocyte Esterase Trace, Urine RBC 3-5, Urine WBC 10-20, Ur Squamous Epith Cells None, Urine Bacteria 3+, Urine Mucus 1+, Urine Opiates Screen Negative, Urine Methadone Screen Negative, Ur Barbituates Screen Negative, Ur Phencyclidine Scrn Negative, Ur Amphetamines Screen Negative, U Benzodiazepines Scrn Negative, Urine Cocaine Screen Negative, U Marijuana (THC) Screen Negative 08/29/25 19:28: VBG pH 7.19 L, VBG pCO2 59.2 H, VBG pO2 90.6 H, VBG HCO3 22.2 L, VBG Total CO2 24.0, VBG O2 Saturation 95.0 H, VBG Base Excess -6.0 L, VBG Lactic Acid 3.9 H 08/29/25 20:05: WBC 19.9 H, RBC 6.00, Hgb 16.6, Hct 54.1 H, MCV 90.2, MCH 27.7, MCHC 30.7 L, RDW 17.2, Plt Count 200, MPV 10.7 H, Neut % (Auto) 88.1 H, Lymph % (Auto) 5.6 L, [place] % (Auto) 5.0, Eos % (Auto) 0.1, Baso % (Auto) 0.2, Neut # (Auto) 17.5 H, Lymph # (Auto) 1.1, [place] # (Auto) 1.0, Eos # (Auto) 0.0, Baso # (Auto) 0.0, Sodium 132 L, Potassium 5.3 H, Chloride 94 L, Carbon Dioxide 23, A nion Gap 20.3 H, BUN 102 H* D, Creatinine 8.10 H D, Estimated Creat Clear 11, E stimated GFR 7 L*, Est GFR ( Amer) 9 L*, Glucose 156 H D, Calcium 6.7 L, Magnesium 1.7, Total Bilirubin 3.0 H, AST 1438 H*, ALT 2404 H*, Alkaline Phosphatase 156 H, Total Protein 6.9, Albumin 2.7 L D, Globulin 4.2 H, A lbumin/Globulin Ratio 0.6 L 08/29/25 20:05 08/29/25 20:05 Response Orders (Tests/Meds): ED MEDICATIONS Generic Name Dose Route Start Last Admin Trade Name Freq PRN Reason Stop Dose Admin Norepinephrine/Dextrose 8 mg in 250 mls @ 3.75 mls/hr 08/29/25 14:25 08/29/25 18:35 Levophed 8mg/250ml-D5w Premix IV 09/28/25 14:24 14 mcg/min .Q24H PAOLA 26.25 mls/hr Protocol Titration 2 MCG/MIN Epinephrine HCl 5 mg/ Sodium 255 mls @ 6.12 mls/hr 08/29/25 17:00 08/29/25 19:01 Chloride IV 09/28/25 16:59 Not Given .Q24H PAOLA Protocol 2 MCG/MIN Propofol 100 mls @ 8.165 mls/hr 08/29/25 17:51 08/29/25 20:20 Diprivan 10mg/Ml 100ml Bottle IV 09/28/25 17:50 25 mcg/kg/min .[id number] PAOLA 40.82 mls/hr Protocol Titration 5 MCG/KG/MIN Calcium Gluconate/Sodium Chloride 2 gm in 100 mls @ 50 mls/hr 08/29/25 19:53 08/29/25 19:55 Calcium Gluconate 2,000mg/100ml Nacl Premix IV 08/29/25 21:52 50 mls/hr ONCE ONE Administration Sodium Chloride 3 ml 08/29/25 16:35 Sodium Chloride 3% 15ml Neb IH 09/28/25 16:34 ONCE PRN INDUCE SPUTUM COLLECTION Discontinued Medications Generic Name Dose Route Start Last Admin Trade Name Freq PRN Reason Stop Dose Admin Epinephrine HCl 1 mg 08/29/25 16:29 08/29/25 16:29 Epinephrine 0.1 Mg/Ml 10ml Syringe (Crash Cart) IV 08/29/25 16:30 1 mg ONCE ONE Administration Etomidate 40 mg 08/29/25 16:36 08/29/25 16:16 Etomidate 40mg/20ml Vial IV 08/29/25 16:37 40 mg ONCE ONE Administration Fentanyl Citrate 100 mcg 08/29/25 16:31 08/29/25 16:31 Fentanyl 100mcg/2ml Vial IV 08/29/25 16:32 100 mcg ONCE ONE Administration Furosemide 100 mg 08/29/25 19:00 08/29/25 18:50 Furosemide 100mg/10ml Vial IV 08/29/25 19:01 100 mg ONCE ONE Administration Lactated Ringer's 1,000 mls @ 999 mls/hr 08/29/25 13:48 08/29/25 14:57 Lactated Ringer's 1000 Ml Bag IV 08/29/25 14:48 Infused .Q1H1M ONE Infusion Cefepime HCl 2 gm/ Sodium 100 mls @ 200 mls/hr 08/29/25 13:55 08/29/25 14:57 Chloride IV 08/29/25 14:24 Infused ONCE ONE Infusion Vancomycin HCl 3,000 mg/ 500 mls @ 166.667 mls/hr 08/29/25 14:30 08/29/25 18:16 Sodium Chloride IV 08/29/25 17:29 Infused ONCE ONE Infusion Calcium Gluconate/Sodium Chloride 2 gm in 100 mls @ 50 mls/hr 08/29/25 16:37 08/29/25 19:04 Calcium Gluconate 2,000mg/100ml Nacl Premix IV 08/29/25 18:36 Infused ONCE ONE Infusion Calcium Chloride 2 gm/ Sodium 270 mls @ 67.5 mls/hr 08/29/25 16:39 08/29/25 19:27 Chloride IV 08/29/25 16:40 Not Given ONCE ONE Ketamine HCl 35 mg 08/29/25 14:54 08/29/25 15:02 Ketamine 50mg/1ml Syringe IV 08/29/25 14:55 35 mg ONCE ONE Administration Miscellaneous 1 each 08/29/25 14:00 08/29/25 15:19 Vancomycin Consult Request NOTAPPLIC 09/28/25 13:59 1 each [facility]SULT [facility] Administration Propofol 40 mg 08/29/25 17:51 08/29/25 17:32 Propofol 10mg/Ml 20ml Vial IV 08/29/25 17:52 40 mg ONCE ONE Administration Sodium Bicarbonate 50 meq 08/29/25 16:56 08/29/25 17:13 Sodium Bicarb 8.4% 50ml Syringe (Crash Cart) IV 08/29/25 16:57 50 meq ONCE ONE Administration ORDERS Category Date Time Status CXR --portable [XR chest portable] Stat Exams 08/29/25 13:00 Completed Chest XR -- portable [XR chest portable] Stat Exams 08/29/25 16:20 Completed Acetaminophen Stat Lab 08/29/25 13:03 Completed BNP [NT Pro Brain Natriuretic Pep.] Stat Lab 08/29/25 13:03 Completed CBC w/Auto Diff [Complete Blood Count Auto Diff] Stat Lab 08/29/25 13:03 Completed CBC w/Auto Diff [Complete Blood Count Auto Diff] Stat Lab 08/29/25 20:05 Completed CK [Creatine Kinase] Stat Lab 08/29/25 13:03 Completed CK [Creatine Kinase] Stat Lab 08/29/25 20:05 Received CMP [Comprehensive Metabolic Panel] Stat Lab 08/29/25 13:03 Completed CMP [Comprehensive Metabolic Panel] Stat Lab 08/29/25 20:05 Completed CRP [C-Reactive Protein] Stat Lab 08/29/25 13:03 Completed Calcium, Ionized Stat Lab 08/29/25 20:05 Received D-Dimer Stat Lab 08/29/25 13:03 Completed Full Resp Panel w/COVID ([facility]) Routine Lab 08/29/25 13:29 Completed HIV Combo Stat Lab 08/29/25 13:04 Completed Hepatitis C Ab Qual. W/ RFX Stat Lab 08/29/25 13:04 Completed MAG [Magnesium] Stat Lab 08/29/25 20:05 Completed Magnesium Stat Lab 08/29/25 13:03 Completed PHOS [Phosphorous] Stat Lab 08/29/25 20:05 Received Phosphorous Stat Lab 08/29/25 13:03 Completed Salicylate Stat Lab 08/29/25 13:03 Completed Troponin I Q3H Lab 08/29/25 20:05 Received Troponin I Stat Lab 08/29/25 13:03 Completed UA [Urinalysis and Microscopic] Stat Lab 08/29/25 18:52 Completed UDS [Drug Screen,Urine] Stat Lab 08/29/25 18:52 Completed Blood Culture Stat Micro 08/29/25 13:14 Received Sputum Culture & Gram Stain Stat Micro 08/29/25 16:30 Results Urine Culture Stat Micro 08/29/25 18:52 Received ABG [Arterial Blood Gas] Stat RT 08/29/25 17:27 Results VBG [Venous Blood Gas] Stat RT 08/29/25 13:02 Completed VBG [Venous Blood Gas] Stat RT 08/29/25 14:43 Completed VBG [Venous Blood Gas] Stat RT 08/29/25 17:18 Stop Req VBG [Venous Blood Gas] Stat RT 08/29/25 19:28 Completed MDM Narrative Medical Decision Narrative: Albino Davila is a 50y male with past medical history of morbid obesity, dermatitis, obstructive sleep apnea, who presents to the emergency department via EMS for unresponsiveness. Per EMS, he has been unresponsive in bed for the past 2 days. When they initially got to him, they state he was facedown in his bed covered in feces and was initially unresponsive but breathing. He was hypoxic to 80%. He has since become more responsive and arrived on nonrebreather mask. They state his fingerstick blood glucose was 190. Per on scene, patient stated recently that he was suicidal. Here, patient is somnolent but will awaken and answer questions. He denies any suicidal ideation or pain. On arrival, patient is borderline hypotensive, heart rate within normal limits, oxygen saturation 95% on BiPAP. Physical exam, stated above, revealed morbidly obese male who is somnolent but will awaken and tell you his name. He we will follow some commands. He is attempting to take the mask off of his face. Patient was noted to be hypoxic to 85% on arrival and was placed on BiPAP. He has breath sounds bilaterally but they are diminished likely secondary to body habitus. Bedside ultrasound showed lung sliding bilaterally. Patient had improvement in oxygenation with BiPAP. Patient did attempt to take the mask off and was placed in soft restraints to the upper extremities to allow him to tolerate BiPAP. Abdomen is soft, nontender. Patient's extremities appear cool to the touch but pulses are intact. He is moving all extremities. Pupils are 3 mm and round and reactive to light bilaterally. Patient's circumference is too large to fit in our CT scanner. Will obtain chest x-ray, laboratory studies, urine and EKG. Patient's significant other, whom he has been with for 14 years but are not , states that he has been saying to his mother that he wishes that he was not alive anymore due to him being in chronic pain. She does not know if he has taken any medications or not. Differential diagnosis includes, but is not limited to: Sepsis, obesity hypoventilation, pneumonia, hypercapnic, hypoxic respiratory failure, electrolyte derangement, rhabdomyolysis, dehydration, pulmonary embolism, among others. The most morbid conditions were considered and workup was based on these. Thus far, patient's workup is pending but patient does have a significantly elevated CK of 1461 and will give 1 L fluid bolus, initial troponin significantly elevated at 4.91 but EKG without evidence of ischemia. EKG shows normal sinus rhythm with no ST elevation or depression. QTc is normal at 464. BNP is elevated at 17,100. CRP significantly elevated 126. Patient has a leukocytosis of 18.8 and what appears to be hemoconcentration with hematocrit of 60.9. Platelets normal at 189. Will cover with broad-spectrum antibiotics, vancomycin and cefepime. Patient's D-dimer is significantly elevated at 8.10, which could be from acute phase reactant from infection versus pulmonary embolism, however patient will not fit in our CT scanner. Patient's lactate is elevated at 3.5 and he is acidotic with pH of 7.16 and bibicarb pCO2 carb elevated at 64. I do suspect this is likely from obesity hypoventilation syndrome, however chest x-ray is pending. Patient's care transferred to the oncoming physician, Dr. Timmons, pending completion of his workup. His renal function and CMP is pending at this time but phosphorus level is elevated at 10.2 and magnesium normal at 1.8. I anticipate patient's renal function will be poor and he may require transfer for dialysis. <Paris Timmons, DO - Last Filed: 08/29/25 21:34> Vital Signs Vital Signs: 08/29/25 13:00 08/29/25 13:00 08/29/25 13:20 Temperature Temperature Source Pulse Rate Pulse Rate [Left Radial] Respiratory Rate 18 Blood Pressure 98/76 L Blood Pressure [Right Arm] Blood Pressure Mean Blood Pressure Mean [Right Arm] Blood Pressure Source Blood Pressure Position 02 Sat by Pulse Oximetry 90 L 95 Oxygen Delivery Method BiPAP BiPAP Fraction of Inspired Oxygen 100 100 08/29/25 13:23 08/29/25 13:26 08/29/25 13:43 Temperature 97.7 F Temperature Source Temporal Artery Scan Pulse Rate 79 69 Pulse Rate [Left Radial] 83 Respiratory Rate 18 26 H 18 Blood Pressure 112/78 108/59 L Blood Pressure [Right Arm] 112/78 Blood Pressure Mean Blood Pressure Mean [Right Arm] 89 Blood Pressure Source Blood Pressure Position 02 Sat by Pulse Oximetry 98 97 97 Oxygen Delivery Method BiPAP BiPAP BiPAP Fraction of Inspired Oxygen 08/29/25 13:45 08/29/25 14:00 08/29/25 14:24 Temperature Temperature Source Pulse Rate 68 Pulse Rate [Left Radial] Respiratory Rate 18 19 Blood Pressure 85/66 L 87/39 L Blood Pressure [Right Arm] Blood Pressure Mean 66 Blood Pressure Mean [Right Arm] Blood Pressure Source Blood Pressure Position 02 Sat by Pulse Oximetry 98 Oxygen Delivery Method BiPAP Fraction of Inspired Oxygen 08/29/25 14:30 08/29/25 14:37 08/29/25 15:12 Temperature Temperature Source Pulse Rate 66 60 70 Pulse Rate [Left Radial] Respiratory Rate 14 15 16 Blood Pressure 149/77 H 128/68 123/76 Blood Pressure [Right Arm] Blood Pressure Mean Blood Pressure Mean [Right Arm] Blood Pressure Source Blood Pressure Position 02 Sat by Pulse Oximetry 97 96 97 Oxygen Delivery Method BiPAP BiPAP BiPAP Fraction of Inspired Oxygen 08/29/25 15:14 08/29/25 15:15 08/29/25 15:26 Temperature Temperature Source Pulse Rate 80 81 76 Pulse Rate [Left Radial] Respiratory Rate 21 22 25 H Blood Pressure 123/76 120/71 90/50 L Blood Pressure [Right Arm] Blood Pressure Mean Blood Pressure Mean [Right Arm] Blood Pressure Source Automatic Cuff Blood Pressure Position Supine 02 Sat by Pulse Oximetry 96 96 99 Oxygen Delivery Method BiPAP BiPAP BiPAP Fraction of Inspired Oxygen 08/29/25 15:28 08/29/25 15:30 08/29/25 15:30 Temperature Temperature Source Pulse Rate 78 74 75 Pulse Rate [Left Radial] Respiratory Rate 22 22 26 H Blood Pressure 90/50 L 98/54 L 98/54 L Blood Pressure [Right Arm] Blood Pressure Mean Blood Pressure Mean [Right Arm] Blood Pressure Source Automatic Cuff Manual Cuff/ Palpation Blood Pressure Position Supine 02 Sat by Pulse Oximetry 95 96 95 Oxygen Delivery Method BiPAP BiPAP Fraction of Inspired Oxygen 08/29/25 15:35 08/29/25 15:36 08/29/25 15:41 Temperature Temperature Source Pulse Rate 81 80 70 Pulse Rate [Left Radial] Respiratory Rate 22 18 17 Blood Pressure 111/75 111/75 114/82 Blood Pressure [Right Arm] Blood Pressure Mean Blood Pressure Mean [Right Arm] Blood Pressure Source Blood Pressure Position 02 Sat by Pulse Oximetry 97 96 96 Oxygen Delivery Method BiPAP BiPAP BiPAP Fraction of Inspired Oxygen 08/29/25 15:44 08/29/25 15:45 08/29/25 15:50 Temperature Temperature Source Pulse Rate 77 74 75 Pulse Rate [Left Radial] Respiratory Rate 22 18 17 Blood Pressure 114/82 113/58 L 101/59 L Blood Pressure [Right Arm] Blood Pressure Mean Blood Pressure Mean [Right Arm] Blood Pressure Source Blood Pressure Position 02 Sat by Pulse Oximetry 96 96 97 Oxygen Delivery Method BiPAP BiPAP BiPAP Fraction of Inspired Oxygen 08/29/25 15:55 08/29/25 16:00 08/29/25 16:05 Temperature Temperature Source Pulse Rate 76 79 83 Pulse Rate [Left Radial] Respiratory Rate 21 15 19 Blood Pressure 112/87 106/64 L 107/59 L Blood Pressure [Right Arm] Blood Pressure Mean Blood Pressure Mean [Right Arm] Blood Pressure Source Blood Pressure Position 02 Sat by Pulse Oximetry 97 96 95 Oxygen Delivery Method BiPAP Mechanical Ventilation Mechanical Ventilation Fraction of Inspired Oxygen 08/29/25 16:11 08/29/25 16:15 08/29/25 16:16 Temperature Temperature Source Pulse Rate 80 89 79 Pulse Rate [Left Radial] Respiratory Rate 13 21 14 Blood Pressure 107/70 L 114/86 110/64 Blood Pressure [Right Arm] Blood Pressure Mean Blood Pressure Mean [Right Arm] Blood Pressure Source Blood Pressure Position 02 Sat by Pulse Oximetry 99 93 L 97 Oxygen Delivery Method Mechanical Ventilation Mechanical Ventilation Mechanical Ventilation Fraction of Inspired Oxygen 08/29/25 16:23 08/29/25 16:24 08/29/25 16:25 Temperature Temperature Source Pulse Rate 77 64 76 Pulse Rate [Left Radial] Respiratory Rate 18 17 20 Blood Pressure 67/38 L 69/38 L 72/35 L Blood Pressure [Right Arm] Blood Pressure Mean Blood Pressure Mean [Right Arm] Blood Pressure Source Blood Pressure Position 02 Sat by Pulse Oximetry 93 L 92 L 90 L Oxygen Delivery Method Mechanical Ventilation Mechanical Ventilation Mechanical Ventilation Fraction of Inspired Oxygen 08/29/25 16:30 08/29/25 16:30 08/29/25 16:30 Temperature Temperature Source Pulse Rate 75 Pulse Rate [Left Radial] Respiratory Rate 16 22 Blood Pressure 95/54 L Blood Pressure [Right Arm] Blood Pressure Mean Blood Pressure Mean [Right Arm] Blood Pressure Source Blood Pressure Position 02 Sat by Pulse Oximetry 93 L 93 L 93 L Oxygen Delivery Method Mechanical Ventilation Mechanical Ventilation Fraction of Inspired Oxygen 100 100 08/29/25 16:35 08/29/25 17:19 08/29/25 17:53 Temperature 95.5 F L 96.8 F L Temperature Source Core Core Pulse Rate 72 76 Pulse Rate [Left Radial] Respiratory Rate 22 18 18 Blood Pressure 95/45 L 144/81 H 136/67 Blood Pressure [Right Arm] Blood Pressure Mean Blood Pressure Mean [Right Arm] Blood Pressure Source Automatic Cuff Blood Pressure Position Sitting 02 Sat by Pulse Oximetry 96 95 Oxygen Delivery Method Mechanical Ventilation Mechanical Ventilation Fraction of Inspired Oxygen 08/29/25 18:11 08/29/25 18:30 08/29/25 18:41 Temperature 96.8 F L 96.8 F L Temperature Source Core Core Pulse Rate 74 71 Pulse Rate [Left Radial] Respiratory Rate 18 22 22 Blood Pressure 146/73 H 125/79 Blood Pressure [Right Arm] Blood Pressure Mean Blood Pressure Mean [Right Arm] Blood Pressure Source Automatic Cuff Automatic Cuff Blood Pressure Position Sitting Sitting 02 Sat by Pulse Oximetry 94 L 94 L 96 Oxygen Delivery Method Mechanical Ventilation Room Air Fraction of Inspired Oxygen 100 08/29/25 18:50 08/29/25 19:00 08/29/25 19:00 Temperature 96.8 F L 96.8 F L Temperature Source Core Pulse Rate 69 70 Pulse Rate [Left Radial] Respiratory Rate 18 22 Blood Pressure 126/66 106/69 L Blood Pressure [Right Arm] Blood Pressure Mean 80 Blood Pressure Mean [Right Arm] Blood Pressure Source Blood Pressure Position 02 Sat by Pulse Oximetry 96 96 Oxygen Delivery Method Mechanical Ventilation Mechanical Ventilation Fraction of Inspired Oxygen 08/29/25 19:05 08/29/25 19:06 08/29/25 19:06 Temperature 96.8 F L 96.8 F L Temperature Source Pulse Rate 69 69 Pulse Rate [Left Radial] Respiratory Rate 22 23 Blood Pressure 111/68 Blood Pressure [Right Arm] Blood Pressure Mean 78 Blood Pressure Mean [Right Arm] Blood Pressure Source Blood Pressure Position 02 Sat by Pulse Oximetry 96 97 Oxygen Delivery Method Mechanical Ventilation Mechanical Ventilation Fraction of Inspired Oxygen 08/29/25 19:10 08/29/25 19:15 08/29/25 19:15 Temperature 96.8 F L 96.8 F L Temperature Source Pulse Rate 68 67 Pulse Rate [Left Radial] Respiratory Rate 22 22 Blood Pressure 115/74 Blood Pressure [Right Arm] Blood Pressure Mean 83 Blood Pressure Mean [Right Arm] Blood Pressure Source Blood Pressure Position 02 Sat by Pulse Oximetry 96 98 Oxygen Delivery Method Mechanical Ventilation Mechanical Ventilation Fraction of Inspired Oxygen 08/29/25 19:20 08/29/25 19:25 08/29/25 19:30 Temperature 96.8 F L 96.8 F L 96.8 F L Temperature Source Pulse Rate 67 66 66 Pulse Rate [Left Radial] Respiratory Rate 22 22 22 Blood Pressure Blood Pressure [Right Arm] Blood Pressure Mean Blood Pressure Mean [Right Arm] Blood Pressure Source Blood Pressure Position 02 Sat by Pulse Oximetry 98 98 98 Oxygen Delivery Method Mechanical Ventilation Mechanical Ventilation Mechanical Ventilation Fraction of Inspired Oxygen 08/29/25 19:30 08/29/25 19:33 08/29/25 19:35 Temperature 96.8 F L Temperature Source Pulse Rate 66 67 Pulse Rate [Left Radial] Respiratory Rate 22 Blood Pressure 106/70 L 106/70 L Blood Pressure [Right Arm] Blood Pressure Mean 79 Blood Pressure Mean [Right Arm] Blood Pressure Source Blood Pressure Position 02 Sat by Pulse Oximetry 97 Oxygen Delivery Method Mechanical Ventilation Fraction of Inspired Oxygen 08/29/25 19:40 08/29/25 19:45 08/29/25 19:45 Temperature 96.8 F L 96.8 F L Temperature Source Pulse Rate 66 66 Pulse Rate [Left Radial] Respiratory Rate 22 22 Blood Pressure 103/68 L Blood Pressure [Right Arm] Blood Pressure Mean 77 Blood Pressure Mean [Right Arm] Blood Pressure Source Blood Pressure Position 02 Sat by Pulse Oximetry 97 97 Oxygen Delivery Method Mechanical Ventilation Mechanical Ventilation Fraction of Inspired Oxygen 08/29/25 19:50 08/29/25 19:51 08/29/25 19:51 Temperature 96.8 F L 96.8 F L Temperature Source Pulse Rate 66 66 Pulse Rate [Left Radial] Respiratory Rate 22 22 Blood Pressure 109/64 L Blood Pressure [Right Arm] Blood Pressure Mean 79 Blood Pressure Mean [Right Arm] Blood Pressure Source Blood Pressure Position 02 Sat by Pulse Oximetry 97 97 Oxygen Delivery Method Mechanical Ventilation Mechanical Ventilation Fraction of Inspired Oxygen 08/29/25 19:55 08/29/25 19:55 08/29/25 20:00 Temperature 96.8 F L Temperature Source Pulse Rate 65 Pulse Rate [Left Radial] Respiratory Rate 22 Blood Pressure 108/71 L 110/71 Blood Pressure [Right Arm] Blood Pressure Mean 81 80 Blood Pressure Mean [Right Arm] Blood Pressure Source Blood Pressure Position 02 Sat by Pulse Oximetry 97 Oxygen Delivery Method Mechanical Ventilation Fraction of Inspired Oxygen 08/29/25 20:00 08/29/25 20:05 08/29/25 20:05 Temperature 96.8 F L 97.0 F L Temperature Source Pulse Rate 66 66 Pulse Rate [Left Radial] Respiratory Rate 19 22 Blood Pressure 112/72 Blood Pressure [Right Arm] Blood Pressure Mean 81 Blood Pressure Mean [Right Arm] Blood Pressure Source Blood Pressure Position 02 Sat by Pulse Oximetry 96 97 Oxygen Delivery Method Mechanical Ventilation Mechanical Ventilation Fraction of Inspired Oxygen 08/29/25 20:10 08/29/25 20:10 08/29/25 20:15 Temperature 97.0 F L 97.0 F L Temperature Source Pulse Rate 65 66 Pulse Rate [Left Radial] Respiratory Rate 22 22 Blood Pressure 103/64 L Blood Pressure [Right Arm] Blood Pressure Mean 73 Blood Pressure Mean [Right Arm] Blood Pressure Source Blood Pressure Position 02 Sat by Pulse Oximetry 97 97 Oxygen Delivery Method Mechanical Ventilation Mechanical Ventilation Fraction of Inspired Oxygen 08/29/25 20:15 08/29/25 20:20 08/29/25 20:20 Temperature 97.0 F L Temperature Source Pulse Rate 66 Pulse Rate [Left Radial] Respiratory Rate 22 Blood Pressure 113/66 117/70 Blood Pressure [Right Arm] Blood Pressure Mean 77 79 Blood Pressure Mean [Right Arm] Blood Pressure Source Blood Pressure Position 02 Sat by Pulse Oximetry 97 Oxygen Delivery Method Mechanical Ventilation Fraction of Inspired Oxygen 08/29/25 20:25 08/29/25 20:25 08/29/25 20:25 Temperature 97.0 F L Temperature Source Pulse Rate 66 Pulse Rate [Left Radial] Respiratory Rate 22 22 Blood Pressure 117/74 Blood Pressure [Right Arm] Blood Pressure Mean 84 Blood Pressure Mean [Right Arm] Blood Pressure Source Blood Pressure Position 02 Sat by Pulse Oximetry 96 96 Oxygen Delivery Method Mechanical Ventilation Fraction of Inspired Oxygen 100 08/29/25 20:30 08/29/25 20:30 08/29/25 20:35 Temperature 97.0 F L Temperature Source Pulse Rate 67 Pulse Rate [Left Radial] Respiratory Rate 22 Blood Pressure 108/72 L 102/58 L Blood Pressure [Right Arm] Blood Pressure Mean 81 78 Blood Pressure Mean [Right Arm] Blood Pressure Source Blood Pressure Position 02 Sat by Pulse Oximetry 95 Oxygen Delivery Method Mechanical Ventilation Fraction of Inspired Oxygen 08/29/25 20:35 08/29/25 20:40 08/29/25 20:40 Temperature 97.0 F L 97.0 F L Temperature Source Pulse Rate 65 65 Pulse Rate [Left Radial] Respiratory Rate 22 22 Blood Pressure 107/60 L Blood Pressure [Right Arm] Blood Pressure Mean 77 Blood Pressure Mean [Right Arm] Blood Pressure Source Blood Pressure Position 02 Sat by Pulse Oximetry 95 95 Oxygen Delivery Method Mechanical Ventilation Mechanical Ventilation Fraction of Inspired Oxygen 08/29/25 20:45 08/29/25 20:45 08/29/25 20:50 Temperature 97.0 F L Temperature Source Pulse Rate 64 Pulse Rate [Left Radial] Respiratory Rate 22 Blood Pressure 100/59 L 123/80 Blood Pressure [Right Arm] Blood Pressure Mean 70 91 Blood Pressure Mean [Right Arm] Blood Pressure Source Blood Pressure Position 02 Sat by Pulse Oximetry 96 Oxygen Delivery Method Mechanical Ventilation Fraction of Inspired Oxygen 08/29/25 20:55 08/29/25 20:55 Temperature 97.2 F L Temperature Source Pulse Rate 64 Pulse Rate [Left Radial] Respiratory Rate 22 Blood Pressure 109/70 L Blood Pressure [Right Arm] Blood Pressure Mean 83 Blood Pressure Mean [Right Arm] Blood Pressure Source Blood Pressure Position 02 Sat by Pulse Oximetry 95 Oxygen Delivery Method Mechanical Ventilation Fraction of Inspired Oxygen Lab Data Lab results reviewed: Yes I reviewed the patient's lab results. Labs: Lab Results 08/29/25 13:02: VBG pH 7.16 L, VBG pCO2 64.0 H, VBG pO2 44.4 H, VBG HCO3 22.5 L, VBG Total CO2 24.5, VBG O2 Saturation 68.1, VBG Base Excess -6.1 L, VBG Lactic Acid 3.5 H 08/29/25 13:03: WBC 18.8 H, RBC 6.67 H, Hgb 18.4 H, Hct 60.9 H*, MCV 91.3, MCH 27.6, MCHC 30.2 L, RDW 18.0 H, Plt Count 189, MPV 10.5 H, Neut % (Auto) 68.9, L ymph % (Auto) 6.7 L, [place] % (Auto) 5.7, Eos % (Auto) 17.7 H, Baso % (Auto) 0.3, Neut # (Auto) 13.0 H, Lymph # (Auto) 1.3, [place] # (Auto) 1.1 H, Eos # (Auto) 3.3 H, Baso # (Auto) 0.1, Total Counted 100, Neutrophils % (Manual) 81 H, L ymphocytes % (Manual) 9 L, Monocytes % (Manual) 7, Eosinophils % (Manual) 3, Platelet Estimate Normal, RBC Morphology Normal, D-Dimer > 8.10 H, Sodium 149 H, Potassium 4.5, Chloride 66 L, Carbon Dioxide 18 L, Anion Gap 69.5 H, BUN 74 H, C reatinine 6.40 H, Estimated Creat Clear 14, Estimated GFR 9 L*, Est GFR ( Amer) 11 L*, Glucose 116 H, Calcium 2.7 L*, Phosphorus 10.2 H, Magnesium 1.8, T otal Bilirubin 1.9 H, AST 1497 H*, ALT 2516 H*, Alkaline Phosphatase 115, Total Creatine Kinase 1461 H*, Troponin I 4.91 H, C-Reactive Protein 126.0 H, NT-Pro-B Natriuret Pep 71756 H, Total Protein 6.1 L, Albumin 3.6, Globulin 2.5, Albumin/Globulin Ratio 1.4, Salicylates < 1.0 L, Acetaminophen < 10 L 08/29/25 13:04: HCV Ab ABENA w/Rflx PCR Qn Negative, HIV Ag/Ab Combo Qual Negative 08/29/25 13:29: Chlamy pneumoniae PCR Not detected, Adenovirus (PCR) Not detected, B. pertussis DNA (PCR) Not detected, Coronavirus OC43 (PCR) Not detected, Coronavirus HKU1 (PCR) Not detected, Coronavirus 229E (PCR) Not detected, SARS-CoV-2 (PCR) Not detected, Coronavirus NL63 (PCR) Not detected, Human Metapneumovir PCR Not detected, Influenza A (H1) PCR Not detected, Influ A (H1N1/09) PCR Not detected, Influenza A (H3) PCR Not detected, Influenza Type A (PCR) Not detected, Influenza Type B (PCR) Not detected, M. pneumoniae (PCR) Not detected, Parainfluenza 1 (PCR) Not detected, Parainfluenza 2 (PCR) Not detected, Parainfluenza 3 (PCR) Not detected, Parainfluenza 4 (PCR) Not detected, RSV (PCR) Not detected, Entero/Rhino (PCR) Not detected 08/29/25 14:43: VBG pH 7.05 L, VBG pCO2 91.7 H, VBG pO2 39.4, VBG HCO3 24.7, VBG Total CO2 27.5 H, VBG O2 Saturation 52.4, VBG Base Excess -5.8 L, VBG Lactic Acid 6.0 H 08/29/25 17:27: Specimen Source Left radial, O2 % 100, ABG pH 7.18 L*, ABG pCO2 65.5 H, ABG pO2 83.9, ABG HCO3 24.0, ABG Total CO2 26.0, ABG O2 Saturation 93, A BG Base Excess -4.4 L, [place] Test Patient unable, Vent Rate 22, Tidal Volume 480, PEEP 10 08/29/25 18:52: Urine Color Yellow, Urine Appearance Clear, Urine pH 5.0, Ur Specific [place] 1.015, Urine Protein 3+ A, Urine Glucose (UA) Negative, Urine Ketones 1+, Urine Blood 3+ A, Urine Nitrate Negative, Urine Bilirubin 2+ A, Urine Urobilinogen 1.0, Ur Leukocyte Esterase Trace, Urine RBC 3-5, Urine WBC 10-20, Ur Squamous Epith Cells None, Urine Bacteria 3+, Urine Mucus 1+, Urine Opiates Screen Negative, Urine Methadone Screen Negative, Ur Barbituates Screen Negative, Ur Phencyclidine Scrn Negative, Ur Amphetamines Screen Negative, U Benzodiazepines Scrn Negative, Urine Cocaine Screen Negative, U Marijuana (THC) Screen Negative 08/29/25 19:28: VBG pH 7.19 L, VBG pCO2 59.2 H, VBG pO2 90.6 H, VBG HCO3 22.2 L, VBG Total CO2 24.0, VBG O2 Saturation 95.0 H, VBG Base Excess -6.0 L, VBG Lactic Acid 3.9 H 08/29/25 20:05: WBC 19.9 H, RBC 6.00, Hgb 16.6, Hct 54.1 H, MCV 90.2, MCH 27.7, MCHC 30.7 L, RDW 17.2, Plt Count 200, MPV 10.7 H, Neut % (Auto) 88.1 H, Lymph % (Auto) 5.6 L, [place] % (Auto) 5.0, Eos % (Auto) 0.1, Baso % (Auto) 0.2, Neut # (Auto) 17.5 H, Lymph # (Auto) 1.1, [place] # (Auto) 1.0, Eos # (Auto) 0.0, Baso # (Auto) 0.0, Sodium 132 L, Potassium 5.3 H, Chloride 94 L, Carbon Dioxide 23, A nion Gap 20.3 H, BUN 102 H* D, Creatinine 8.10 H D, Estimated Creat Clear 11, E stimated GFR 7 L*, Est GFR ( Amer) 9 L*, Glucose 156 H D, Calcium 6.7 L, Magnesium 1.7, Total Bilirubin 3.0 H, AST 1438 H*, ALT 2404 H*, Alkaline Phosphatase 156 H, Total Protein 6.9, Albumin 2.7 L D, Globulin 4.2 H, A lbumin/Globulin Ratio 0.6 L Response Orders (Tests/Meds): ED MEDICATIONS Generic Name Dose Route Start Last Admin Trade Name Freq PRN Reason Stop Dose Admin Norepinephrine/Dextrose 8 mg in 250 mls @ 3.75 mls/hr 08/29/25 14:25 08/29/25 18:35 Levophed 8mg/250ml-D5w Premix IV 09/28/25 14:24 14 mcg/min .Q24H PAOLA 26.25 mls/hr Protocol Titration 2 MCG/MIN Epinephrine HCl 5 mg/ Sodium 255 mls @ 6.12 mls/hr 08/29/25 17:00 08/29/25 19:01 Chloride IV 09/28/25 16:59 Not Given .Q24H PAOLA Protocol 2 MCG/MIN Propofol 100 mls @ 8.165 mls/hr 08/29/25 17:51 08/29/25 20:20 Diprivan 10mg/Ml 100ml Bottle IV 09/28/25 17:50 25 mcg/kg/min .[id number] PAOLA 40.82 mls/hr Protocol Titration 5 MCG/KG/MIN Calcium Gluconate/Sodium Chloride 2 gm in 100 mls @ 50 mls/hr 08/29/25 19:53 08/29/25 19:55 Calcium Gluconate 2,000mg/100ml Nacl Premix IV 08/29/25 21:52 50 mls/hr ONCE ONE Administration Sodium Chloride 3 ml 08/29/25 16:35 Sodium Chloride 3% 15ml Neb IH 09/28/25 16:34 ONCE PRN INDUCE SPUTUM COLLECTION Discontinued Medications Generic Name Dose Route Start Last Admin Trade Name Freq PRN Reason Stop Dose Admin Epinephrine HCl 1 mg 08/29/25 16:29 08/29/25 16:29 Epinephrine 0.1 Mg/Ml 10ml Syringe (Crash Cart) IV 08/29/25 16:30 1 mg ONCE ONE Administration Etomidate 40 mg 08/29/25 16:36 08/29/25 16:16 Etomidate 40mg/20ml Vial IV 08/29/25 16:37 40 mg ONCE ONE Administration Fentanyl Citrate 100 mcg 08/29/25 16:31 08/29/25 16:31 Fentanyl 100mcg/2ml Vial IV 08/29/25 16:32 100 mcg ONCE ONE Administration Furosemide 100 mg 08/29/25 19:00 08/29/25 18:50 Furosemide 100mg/10ml Vial IV 08/29/25 19:01 100 mg ONCE ONE Administration Lactated Ringer's 1,000 mls @ 999 mls/hr 08/29/25 13:48 08/29/25 14:57 Lactated Ringer's 1000 Ml Bag IV 08/29/25 14:48 Infused .Q1H1M ONE Infusion Cefepime HCl 2 gm/ Sodium 100 mls @ 200 mls/hr 08/29/25 13:55 08/29/25 14:57 Chloride IV 08/29/25 14:24 Infused ONCE ONE Infusion Vancomycin HCl 3,000 mg/ 500 mls @ 166.667 mls/hr 08/29/25 14:30 08/29/25 18:16 Sodium Chloride IV 08/29/25 17:29 Infused ONCE ONE Infusion Calcium Gluconate/Sodium Chloride 2 gm in 100 mls @ 50 mls/hr 08/29/25 16:37 08/29/25 19:04 Calcium Gluconate 2,000mg/100ml Nacl Premix IV 08/29/25 18:36 Infused ONCE ONE Infusion Calcium Chloride 2 gm/ Sodium 270 mls @ 67.5 mls/hr 08/29/25 16:39 08/29/25 19:27 Chloride IV 08/29/25 16:40 Not Given ONCE ONE Ketamine HCl 35 mg 08/29/25 14:54 08/29/25 15:02 Ketamine 50mg/1ml Syringe IV 08/29/25 14:55 35 mg ONCE ONE Administration Miscellaneous 1 each 08/29/25 14:00 08/29/25 15:19 Vancomycin Consult Request NOTAPPLIC 09/28/25 13:59 1 each CONSULT PHARMACY [facility] Administration Propofol 40 mg 08/29/25 17:51 08/29/25 17:32 Propofol 10mg/Ml 20ml Vial IV 08/29/25 17:52 40 mg ONCE ONE Administration Sodium Bicarbonate 50 meq 08/29/25 16:56 08/29/25 17:13 Sodium Bicarb 8.4% 50ml Syringe (Crash Cart) IV 08/29/25 16:57 50 meq ONCE ONE Administration ORDERS Category Date Time Status CXR --portable [XR chest portable] Stat Exams 08/29/25 13:00 Completed Chest XR -- portable [XR chest portable] Stat Exams 08/29/25 16:20 Completed Acetaminophen Stat Lab 08/29/25 13:03 Completed BNP [NT Pro Brain Natriuretic Pep.] Stat Lab 08/29/25 13:03 Completed CBC w/Auto Diff [Complete Blood Count Auto Diff] Stat Lab 08/29/25 13:03 Completed CBC w/Auto Diff [Complete Blood Count Auto Diff] Stat Lab 08/29/25 20:05 Completed CK [Creatine Kinase] Stat Lab 08/29/25 13:03 Completed CK [Creatine Kinase] Stat Lab 08/29/25 20:05 Received CMP [Comprehensive Metabolic Panel] Stat Lab 08/29/25 13:03 Completed CMP [Comprehensive Metabolic Panel] Stat Lab 08/29/25 20:05 Completed CRP [C-Reactive Protein] Stat Lab 08/29/25 13:03 Completed Calcium, Ionized Stat Lab 08/29/25 20:05 Received D-Dimer Stat Lab 08/29/25 13:03 Completed Full Resp Panel w/COVID ([facility]) Routine Lab 08/29/25 13:29 Completed HIV Combo Stat Lab 08/29/25 13:04 Completed Hepatitis C Ab Qual. W/ RFX Stat Lab 08/29/25 13:04 Completed MAG [Magnesium] Stat Lab 08/29/25 20:05 Completed Magnesium Stat Lab 08/29/25 13:03 Completed PHOS [Phosphorous] Stat Lab 08/29/25 20:05 Received Phosphorous Stat Lab 08/29/25 13:03 Completed Salicylate Stat Lab 08/29/25 13:03 Completed Troponin I Q3H Lab 08/29/25 20:05 Received Troponin I Stat Lab 08/29/25 13:03 Completed UA [Urinalysis and Microscopic] Stat Lab 08/29/25 18:52 Completed UDS [Drug Screen,Urine] Stat Lab 08/29/25 18:52 Completed Blood Culture Stat Micro 08/29/25 13:14 Received Sputum Culture & Gram Stain Stat Micro 08/29/25 16:30 Results Urine Culture Stat Micro 08/29/25 18:52 Received ABG [Arterial Blood Gas] Stat RT 08/29/25 17:27 Results VBG [Venous Blood Gas] Stat RT 08/29/25 13:02 Completed VBG [Venous Blood Gas] Stat RT 08/29/25 14:43 Completed VBG [Venous Blood Gas] Stat RT 08/29/25 17:18 Stop Req VBG [Venous Blood Gas] Stat RT 08/29/25 19:28 Completed MDM Narrative Medical Decision Narrative: Albino Davila is a 50y male with past medical history of morbid obesity, dermatitis, obstructive sleep apnea, who presents to the emergency department via EMS for unresponsiveness. Per EMS, he has been unresponsive in bed for the past 2 days. When they initially got to him, they state he was facedown in his bed covered in feces and was initially unresponsive but breathing. He was hypoxic to 80%. He has since become more responsive and arrived on nonrebreather mask. They state his fingerstick blood glucose was 190. Per on scene, patient stated recently that he was suicidal. Here, patient is somnolent but will awaken and answer questions. He denies any suicidal ideation or pain. On arrival, patient is borderline hypotensive, heart rate within normal limits, oxygen saturation 95% on BiPAP. Physical exam, stated above, revealed morbidly obese male who is somnolent but will awaken and tell you his name. He we will follow some commands. He is attempting to take the mask off of his face. Patient was noted to be hypoxic to 85% on arrival and was placed on BiPAP. He has breath sounds bilaterally but they are diminished likely secondary to body habitus. Bedside ultrasound showed lung sliding bilaterally. Patient had improvement in oxygenation with BiPAP. Patient did attempt to take the mask off and was placed in soft restraints to the upper extremities to allow him to tolerate BiPAP. Abdomen is soft, nontender. Patient's extremities appear cool to the touch but pulses are intact. He is moving all extremities. Pupils are 3 mm and round and reactive to light bilaterally. Patient's circumference is too large to fit in our CT scanner. Will obtain chest x-ray, laboratory studies, urine and EKG. Patient's significant other, whom he has been with for 14 years but are not , states that he has been saying to his mother that he wishes that he was not alive anymore due to him being in chronic pain. She does not know if he has taken any medications or not. Differential diagnosis includes, but is not limited to: Sepsis, obesity hypoventilation, pneumonia, hypercapnic, hypoxic respiratory failure, electrolyte derangement, rhabdomyolysis, dehydration, pulmonary embolism, among others. The most morbid conditions were considered and workup was based on these. Thus far, patient's workup is pending but patient does have a significantly elevated CK of 1461 and will give 1 L fluid bolus, initial troponin significantly elevated at 4.91 but EKG without evidence of ischemia. EKG shows normal sinus rhythm with no ST elevation or depression. QTc is normal at 464. BNP is elevated at 17,100. CRP significantly elevated 126. Patient has a leukocytosis of 18.8 and what appears to be hemoconcentration with hematocrit of 60.9. Platelets normal at 189. Will cover with broad-spectrum antibiotics, vancomycin and cefepime. Patient's D-dimer is significantly elevated at 8.10, which could be from acute phase reactant from infection versus pulmonary embolism, however patient will not fit in our CT scanner. Patient's lactate is elevated at 3.5 and he is acidotic with pH of 7.16 and bibicarb pCO2 carb elevated at 64. I do suspect this is likely from obesity hypoventilation syndrome, however chest x-ray is pending. Patient's care transferred to the oncoming physician, Dr. Timmons, pending completion of his workup. His renal function and CMP is pending at this time but phosphorus level is elevated at 10.2 and magnesium normal at 1.8. I anticipate patient's renal function will be poor and he may require transfer for dialysis. Paris Timmons, DO I assumed care of the patient at 1400. On my initial evaluation, patient was intermittently alert would answer his name. Patient's initial VBG showed acidosis with hypercapnia. Chest x-ray was obtained which was reviewed and interpreted by myself and showed likely some component of hypoventilation secondary to obesity however patient looked significantly volume overloaded as well. While in the emergency department, patient's repeat VBG was obtained and patient showed significant worsening acidosis with a pH of 7.0 and CO2 of 91. Patient became significantly less awake and became altered on BiPAP therefore at this time I felt that patient needed to be intubated. I had significant concerns about intubating this patient given his significant obesity. Had a lengthy discussion with the family including patient's mother who is his next of kin as well as his girlfriend of 14 years. They stated that patient did not have a well but patient would be okay with intubation but did not want to be resuscitated and therefore they felt the patient would want to be a DNR but they are okay with intubation. I did have a lengthy discussion with them about my concerns given his significant obesity and the risks and benefits of pursuing an intubation and ultimately it was decided that given patient's rising CO2 altered mental status that an intubation was required. Patient had appropriate access, patient was started on norepinephrine prior to the intubation. Patient was given low-dose etomidate given that patient was significantly altered he was given 40 mg. Patient had been given pain dose ketamine 35 mg just prior to the procedure as well. Patient was not paralyzed, given my concern for it being a difficult airway. A 7-1/2 ET tube was placed. Patient had breath sounds bilaterally. Chest x-ray was obtained postprocedure but was unable to visualize the ET tube secondary to significant hypoventilation and pulmonary edema. However patient had appropriate capnography had bilateral breath sounds and I visualized the ET tube through the cords via GlideScope. Patient was given fentanyl after the procedure for further pain management and sedation. Just after the procedure, patient did have an episode of hypotension with a systolic in the 60s. Patient was given an epinephrine spritzer and norepinephrine was increased. Patient's blood pressure improved. Patient's labs were reviewed and interpreted by myself and showed significant abnormalities as noted above. Patient CMP returned with significant creatinine of 6.4 significantly elevated BUN. Patient had significantly elevated LFTs with ALT and AST in the 1500s normal alk phos mildly elevated bilirubin. I suspect patient has a component of hepatorenal syndrome. Patient was given a Lasix challenge with 100 of Lasix and [place] was placed, patient did not have any urinary output. Patient was given 1 amp of bicarb 4 g of calcium given his critical calcium of 2.7. Multiple repeat gases were obtained after patient was intubated, patient had improving acidosis but significantly improved hypercapnia. Given that patient was not making any urine I did not want to further diuresis at this time. Again as noted above patient was too large to fit in our CT scanner therefore further CT imaging to rule out significant pathology was unable to be done. I had multiple interactive discussions with the [facility] as well as the [facility], patient was ultimately accepted as a direct admit to the [facility]. The bed was not available for an extended period of time therefore patient was kept in our emergency department and was resuscitated. Patient was attempted to be flown but given patient's BMI this was not able to be done and therefore patient was sent by ALS. Patient is currently on a propofol drip, norepinephrine drip. Patient has received vancomycin, cefepime for broad-spectrum antibiotics patient is intubated as noted above. Patient otherwise was sent in stable condition to the medical ICU to [facility]. Of note, repeat labs were obtained prior to transfer, patient's creatinine did significantly worsen from 6.4 to 8. Patient had mild increase in his potassium from 4.5-5.3 and BUN is not 100. No other significant abnormalities were noted at this time.
[2025-08-29 13:10] LABS: VBG HCO3 22.5 mmol/L (23-30); VBG PCO2 64.0 mmol/L (35-51); VBG PO2 44.4 mmol/L (28-40)
[2025-08-29 13:20] LABS: Immature Granulocytes % 0.7 %; Mean Corpuscular HGB Conc 30.2 g/dL (31.8-35.4); Mean Corpuscular Hemoglobin 27.6 pg (27.0-31.2); Mean Corpuscular Volume 91.3 fl (80-94); Nucleated Red Blood Cells % 0.5 %; Platelet Count 189 K/mm3 (142-424); Red Blood Count 6.67 M/mm3 (4.60-6.20); Red Cell Distribution Width-SD 54.9 fL; White Blood Count 18.8 K/mm3 (4.8-10.8)
--- OUTSIDE RECORDS SUMMARY | 2025-08-29 13:25 | XMS_ITS | Clinical Summary ---
Author Organization [facility] Address [address] [place] [address] Care Team Providers Care Wildlife Control Operator Name Role Phone Unavailable Primary Care Provider Unavailabl e Social History Tobacco Use Types Packs/Day Years Used Date Smoking Tobacco: Never Assessed Sex and Gender Information Value Date Recorded Sex Assigned at Not on file Legal Sex Male 4:39 PM EST Gender Identity Not on file Sexual Orientation Not on file Plan of Treatment Health Maintenance Due Date Last Done Comments CT Colonography 1975 Colonoscopy 1975 Colorectal Cancer Screening 1975 FIT-DNA 1975 FIT 1975 FOBT 1975 Sigmoidoscopy 1975 Hepatitis B (HepB) Vaccine ( 1 of 3 - 19+ 3-dose series) 1994 Tdap/Td Vaccine >11 yo (1 - Tdap) 1994 Annual SDOH Screening 11/04/2024 Influenza Vaccine (#1) 2025 Pneumococcal Vaccines >50 yo (1 of 1 - PCV) 2025 Shingles (Shingrix) (1 of 2) 2025 RSV 50+ and (1 - 1 -dose 75+ series) 2050 Haemophilus Influenzae Type B (Hib) Vaccine Aged Out No longer eligible b ased on patient's age to complete this topic Hepatitis A (HepA) Vaccine Aged Out N o longer eligible based on patient's age to complete this topic Meningococcal ACWY Aged Out No longer eligible based on patient's age to complete this topic Polio (IPV) Aged Out No longer eligi ble based on patient's age to complete this topic Rotavirus (RV) Vaccine Aged Out No lo nger eligible based on patient's age to complete this topic
--- OUTSIDE RECORDS SUMMARY | 2025-08-29 13:26 | XMS_ITS | Clinical Summary ---
Author Organization [facility] Address [address] [place] [address] Care Team Providers Care Gum Mixer Name Role Phone Mariam Ortega MD Primary Care Provi jeri Allergies Active Allergy Reactions Criticality Noted Date Comments Chlorpheniramine-Phenylephrine Rash Low 11/08 Dextromethorphan Hbr Shortness Of Breath High 2015 Guaifenesin Unknown - Low Severity 11/22/2022 Pseudoephedrine Unknown - Low Severity 11/22/19 23 Medications clotrimazole (LOTRIMIN) 1 % cream Apply 1 application topically to the appropriate area as directed 2 (Two) Times a Day. 3 Active naftifine (NAFTIN) 1 % cream Apply 1 application topically to the appropriate area as directed Daily. 3 Active sodium-potassiu m-magnesium sulfates (Suprep Bowel Prep Kit) 17.5-3.13-1.6 GM/177ML solution oral solution Take 1 bottle by mouth Take As Directed. Follow instructions that were mailed to your home. If you didn't receive these call [phone]. 354 mL 3 Active methylPREDNISol one (MEDROL) 4 MG dose pack Take as directed on package instructions. 21 tablet 3 Active amitriptyline (ELAVIL) 25 MG tabletIndicatio ns:Intractable migraine without aura and with status migrainosus Take 1 tablet by mouth Every Night. 30 tablet 2 3 Active cyclobenzaprine (FLEXERIL) 10 MG tablet Take 1 tablet by mouth 3 (Three) Times a Day As Needed for Muscle Spasms. 42 tablet 2 3 Active fluocinonide (LIDEX) 0.05 % external solutionIndicat ions:Rash Apply topically to the appropriate area as directed 2 (Two) Times a Day. 60 mL 2 4 Active fluconazole (DIFLUCAN) 150 MG tablet Take 1 tablet by mouth Daily. 1 tablet 4 Active Paxlovid, 300/100, TAKE 3 TABLETS TOGETHER (TWO 150 MG NIRMATRELVIR TABLETS AND ONE 100 MG RITONAVIR TABLET) BY MOUTH TWICE DAILY FOR 5 DAYS. 4 Active tamsulosin (FLOMAX) 0.4 MG capsule 24 hr capsule 4 Active Rimegepant Sulfate (Nurtec) 75 MG tablet dispersible tabletIndicatio ns:Intractable migraine without aura and with status migrainosus DISSOLVE 1 TABLET BY MOUTH ONCE DAILY NEEDED FOR MIGRAINE HEADACHE 7 tablet 4 Active Active Problems Problem Noted Date Diagnosed Date Frequency of micturition 07/23/2023 Colon cancer screening 05/30/2023 Overview (05/30/2023): Added automatically from request for surgery [id number] (bright red blood per rectum) 05/30/2023 Overview (05/30/2023): Added automatically from request for surgery [id number] Class 3 severe obesity due t o excess calories without serious comorbidity with body mass index (BMI) of 60.0 to 69.9 in adult 08/06/2019 Esophageal reflux 06/08/2016 Gout 06/08/2016 Essential tremor 03/20/2016 Overview (06/08/2016): -pt to pharmacy picking tech propranolol rx soon, had good sx control on this med of his tremors Obstructive sleep apnea syndrome 03/20/2016 Seizure disorder Overview (02/28/2017): last seizure age 6, off meds since age 11 Chronic back pain Migraines Tobacco use Resolved Problems Problem Noted Date Diagnosed Date Resolved Date Migraine 06/08/2016 02/28/2017 Hypoglycemia 06/08/2016 05/21/2018 Overview (06/08/2016): Hypoglycemic sxs -glc in office 117, no indications of DMII as A1c was 5.3% 3 months ago -reassured pt and told him to keep snacks in his car for these episodes Chronic constipation 05/08/2016 018 Sleep apnea 02/28/2017 Overview (02/28/2017): non-compliant w/ device Heartburn 05/21/2018 Overview (02/28/2017): w/ spicy foods, no meds Morbid obesity 08/06/2019 Fatigue 05/21/2018 Dyspnea on exertion 05/21/20 18 Hypertension 05/21/2018 Joint pain 05/21/2018 Bipolar disorder 05/21/2018 Overview (02/28/2017): per patient, untreated Encounters Date Type Department Care Team Description 07/07/2025 Telephone [facility] [address] [facility] [address] [place] [address] Mariam Ortega MD Advice Only from Last 3 Months Immunizations Immunization Administration Dates Next Due Fluzone >6mos 08/29/2018 Fluzone (or Fluarix & Flulav al for VFC) >6mos 09/06/2023,08/08/2022,09/01/2020 Td (TDVAX) 01/11/1997 Tdap 04/18/2009 flucelvax quad pfs =>4 YRS 08/06/2019 Family History Medical History Relation Name Comments Cancer Father malignant neopl asm Heart attack Father Hypertension Father Heart attack Other Grandparetn Hypertension Other Grandparetn Relation Name Status Comments Father Other Grandparetn Social History Tobacco Use Types Packs/Day Years Used Date Smoking Tobacco: Never Passive Smoke Exposure: Never Smokeless Tobacco: Current Snuff Tobacco Cessation:Ready to Q uit: Not Asked; Counseling Given: No Alcohol Use Standard Drinks/Week Comments Yes 0 (1 standard drink = 0.6 oz pur e alcohol) occasional PHQ-2 Answer Date Recorded Retired PHQ-9: Brief Depression Severity Measure Score 0 05/28/2023 Abuse Screen Answer Date Recorded Unsafe at Home or Work/School Not on file Feels Threatened by Someone? Not on file 04/2024 Does Anyone Keep You from Co ntacting Others or Doint Things Outside the Home? Not on file 07/10/2024 Physical Sign of Abuse Present Not on file 0 07/10/2024 Housing Stability Answer Date Recorded Current Living Arrangements Not on file 07/2023 Potentially Unsafe Housing Conditions Not on taj e 08/12/2023 Family and Community Support Answer Jarek e Recorded Help with Day-to-Day Activities Not on file 08/12/2023 Lonely or Isolated Not on file 08/12/2023 Employment Answer Date Recorded Do you want help finding or keeping work or a brook b? Not on file 08/12/2023 Disabilities Answer Date Recorded Concentrating, Remembering, or Making Decisions Difficulty Not on file 08/12/2023 Doing Errands Independently Difficulty Not on fi le 08/12/2023 Education Answer Date Recorded Help with school or training? Not on file Preferred Language Not on file 07/10/2024 PHQ-2 Answer Date Recorded Retired PHQ-9: Brief Depression Severity Measure Score 0 05/28/2023 Sex and Gender Information Value Date Recorded Sex Assigned at Not on file Legal Sex Male 1:15 PM EDT Gender Identity Not on file Sexual Orientation Not on file Last Filed Vital Signs Vital Sign Reading Time Taken Comments Blood Pressure 109/62 07/12/2023 10:00 AM EDT Pulse 72 07/23/2023 8:03 AM EDT Temperature 36.7 C (98 F) 07/12/2023 9:46 AM EDT Respiratory Rate 18 07/12/2023 9:46 AM EDT Oxygen Saturation 93% 07/23/2023 8:03 AM EDT Inhaled Oxygen Concentration - - Weight 240 kg (530 lb) 07/23/2023 8:03 AM EDT Height 177.8 cm (5' 10 ) 07/23/2023 8:03 AM EDT Body Mass Index 76.05 07/23/2023 8:03 AM EDT Plan of Treatment Health Maintenance Due Date Last Done Comments HEPATITIS C SCREENING 03/20/2016 TDAP/TD VACCINES (3 - Td or Tdap) 04/18/2019 009, 01/11/1997 ANNUAL WELLNESS VISIT 01/29/2020 01/28/2019 , 01/28/2019, 10/09/2017, Additional history exists COLOGUARD 2020 COLON CANCER SCREENING 5 YEA R SIGMOID[address] COLONOGRAPHY 2020 FECAL OCCULT BLOOD TEST 2020 FIT Testing (1 year) 2020 INFLUENZA VACCINE 06/04/2025 09/06/2023, , 09/01/2020, Additional history exists Pneumococcal Vaccine 50+ (1 of 1 - PCV) 2025 ZOSTER VACCINE (1 of 2) 2025 COLONOSCOPY 07/12/2033 07/12/2023, 06/2023, 11/08/2017, Additional history exists COLORECTAL CANCER SCREENING 07/12/2033 Procedures Procedure Name Priority Date/Time Associated Diagnosis Comments COLONOSCOPY 07/12/2023 8:55 AM EDT from Last 3 Months or Most Recently Relevant to Health Maintenance Results * COLONOSCOPY (07/12/2023 8:55 AM EDT) Laisha Louis MD INTERFACE NEEDS Final Result from Last 3 Months or Most Recently Relevant to Health Maintenance [facility] [id number] [employer] [facility] MEDICARE ADVANTAGE SNP PPO Care Teams Gum Mixer Relationship Specialty Start Date End Date Mariam Ortega MD [address] [address] PCP - General 11/07/15
--- OUTSIDE RECORDS SUMMARY | 2025-08-29 13:26 | XMS_ITS | Encounter Summary ---
Author Organization [facility] Address [address] [place] [address] Care Team Providers Care Paint Mixer Name Role Phone Mariam Ortega MD Primary Care Provi jeri Reason for Visit * Reason Onset Date Comments Advice Only 07/07/2025 Encounter Details Date Type Department Care Team (Late st Contact Info) Description 07/07/2025 Telephone [facility] [address] [id number] Mariam Ortega MD 120 [facility] [address] [place] [address] Advice Only Social History Tobacco Use Types Packs/Day Years Used Date Smoking Tobacco: Never Passive Smoke Exposure: Never Smokeless Tobacco: Current Snuff Alcohol Use Standard Drinks/Week Comments Yes 0 [...] on file Sexual Orientation Not on file documented as of this encounter Miscellaneous Notes * Telephone Encounter - Lolis Sanderson RegSched Rep - 07/07/2025 10:18 AM EDT Pt scheduled * Telephone Encounter - Quang Martin CMA - 07/07/2025 10:09 AM EDT LVM for pt to return call. OK FOR HUB TO RELAY MESSAGE Patient would need to be seen as it has been almost 2 years since last visit. * Telephone Encounter - Katerina Gallo RegSched Rep - 07/07/2025 9:47 AM EDT Caller: richard dexter Relationship: Emergency Contact Best call back number: [phone] What was the call regarding: WANTS TO KNOW IF WE CAN FILL OUT A NEW HANDICAP PLACARD FOR THE PATIENT OR IF HE WILL NEED TO COME IN FOR AN APPOINTMENT. PLEASE CALL TO LET THEM KNOW documented in this encounter Plan of Treatment Not on file documented as of this encounter Visit Diagnoses Not on filedocumented in this encounter Care Teams Paint Mixer Relationship Specialty Start Date End Date Mariam Ortega MD [address] [place] [address] PCP - General 11/07/15 documented as of this encounter
[2025-08-29 13:28] LABS: Creatine Kinase 1461 U/L (55-170); Magnesium 1.8 mg/dl (1.6-2.3); Phosphorous 10.2 mg/dl (2.5-4.5)
[2025-08-29 13:33] LABS: Adenovirus,PCR Not Detected (NotDetected); Chlamydophila Pneumoniae, PCR Not Detected (NotDetected); Coronavirus 19, PCR Not Detected (NotDetected); Coronovirus HKU1,PCR Not Detected (NotDetected); Influenza A, PCR Not Detected (NotDetected); Influenza AH1, 2009 Not Detected (NotDetected); Influenza AH1, PCR Not Detected (NotDetected); Influenza AH3,PCR Not Detected (NotDetected); Influenza B, PCR Not Detected (NotDetected); Mycoplasma Pneumoniae, PCR Not Detected (NotDetected); Parainfluenza 1, PCR Not Detected (NotDetected); Parainfluenza 2, PCR Not Detected (NotDetected); Parainfluenza 3, PCR Not Detected (NotDetected); Parainfluenza 4, PCR Not Detected (NotDetected)
[2025-08-29 13:33] LABS: C-Reactive Protein 126.0 mg/L (0-4)
[2025-08-29 13:34] LABS: D-Dimer > 8.10 ug/mL (0.0-0.5)
[2025-08-29 13:36] LABS: Acetaminophen < 10 ug/ml (10-30); Salicylate < 1.0 mg/dL (2.0-20.0)
[2025-08-29 13:42] LABS: NT Pro Brain Natriuretic Pep. 17100 pg/mL (0-125)
[2025-08-29 13:47] LABS: Troponin I 4.91 ng/ml (0.00-0.034)
[2025-08-29 13:47] LABS: Lactate Venous 3.5 mmol/L (0.4-2.0); VBG PH 7.16 mmol/L (7.31-7.41)
--- NOTE | 2025-08-29 13:51 | ECG_ITS ---
APPROVED REPORT Exam: Resting ECG HR:65 bpm ECG Measurements Heart Rate 65 AXES NJ 185 P 62 QRSd 102 QRS 99 QT 453 T 67 QTc 464 Conclusion SINUS RHYTHM BORDERLINE RIGHT AXIS DEVIATION [QRS AXIS > 90] LOW QRS VOLTAGE IN PRECORDIAL LEADS [QRS DEFLECTION < 1.0 mV IN CHEST LEADS] INCOMPLETE RIGHT BUNDLE BRANCH BLOCK [90+ ms QRS DURATION, TERMINAL R IN V1/V2, 40+ ms S IN I/aVL/V4/V5/V6] MODERATE ST DEPRESSION [0.05+ mV ST DEPRESSION] PROLONGED QT INTERVAL ABNORMAL ECG UNCONFIRMED REPORT Electronically signed by : DARIO MONTGOMERY, 08/31/2025 06:32:05
--- NOTE | 2025-08-29 13:51 | PC.NURSE ---
per lab Trop 4.91
--- NOTE | 2025-08-29 13:53 | PC.NURSE ---
Hematacrit 60.9
[2025-08-29] MEDS: CEFEPIME HCL 2 GM in 0.9 % SODIUM CHLORIDE 100 ML IV (14:25)
[2025-08-29] MEDS: LACTATED RINGERS 1000ML 1,000 ML 999 ML IV (14:25)
[2025-08-29 14:35] LABS: Total Cells Counted 100
[2025-08-29 14:36] LABS: RBC Morphology Normal
[2025-08-29] MEDS: SODIUM CHLORIDE 0.9% IV (14:57)
[2025-08-29] MEDS: VANCOMYCIN HCL IV (14:57)
[2025-08-29 14:59] LABS: Hematocrit 60.9 % (42.0-52.0)
[2025-08-29 15:00] LABS: Hemoglobin 18.4 g/dL (14.1-18.0)
[2025-08-29 15:00] LABS: VBG HCO3 24.7 mmol/L (23-30); VBG PCO2 91.7 mmol/L (35-51); VBG PO2 39.4 mmol/L (28-40)
[2025-08-29] MEDS: KETAMINE 50MG/1ML SYRINGE 35 MG IV (15:02)
[2025-08-29 15:17] LABS: Hepatitis C Ab Qual. W/ RFX NEGATIVE (Negative)
[2025-08-29] MEDS: VANCOMYCIN CONSULT REQUEST 1 EACH NOTAPPLIC (15:19)
--- NOTE | 2025-08-29 15:29 | PC.NURSE ---
Iain GONZALES attempting to obtain additional IV access, Placing USIV
--- NOTE | 2025-08-29 15:59 | PC.NURSE ---
Preparing patient for intubation
[2025-08-29 16:01] LABS: Albumin Level 3.6 g/dl (3.5-5.0); Potassium 4.5 mmoL/L (3.5-5.1); Sodium 149 mmol/L (136-145)
[2025-08-29 16:04] LABS: Alkaline Phosphatase 115 U/L (38-126); Bilirubin,Total 1.9 mg/dl (0.2-1.3); Blood Urea Nitrogen 74 mg/dl (9-20); Carbon Dioxide 18 mmol/L (22.0-30.0); Creatinine Clearance Estimated 14 mL/min (50-200); Estimated Glomerular Filt Rate 9 ml/min (>60); GFR (African American) 11 ML/MIN (>60); Glucose 116 mg/dl (74-100); Total Protein,Serum 6.1 g/dl (6.3-8.2)
--- NOTE | 2025-08-29 16:05 | PC.NURSE ---
1502 35 mg of ketamine was given per Yoana Timmons MD order, 15 mg was wasted with A Rian RN 1606 4 additional sticks of 50mg Ketamine pulled Per Yoana Timmons MD order
[2025-08-29 16:09] LABS: Anion Gap 69.5 mEq/L (5-15); Calcium 2.7 mg/dl (8.4-10.2); Chloride 66 mmol/L (98-107); Creatinine,Serum 6.40 mg/dl (0.66-1.25)
[2025-08-29 16:10] LABS: Albumin/Globulin Ratio 1.4 (1.1-1.8); Globulin 2.5 g/dL (1.3-3.2)
[2025-08-29] MEDS: NOREPINEPHRINE BITARTRATE/D5W 8 MG/250 ML PLAST..BAG 3.75 MG IV (16:11)
--- NOTE | 2025-08-29 16:11 | PC.NURSE ---
nor epinephrine initiated by provider order
[2025-08-29 16:12] LABS: Aspartate Amino Transferase 1497 U/L (17-59)
[2025-08-29] MEDS: ETOMIDATE 40MG/20ML VIAL 40 MG IV (16:16)
--- NOTE | 2025-08-29 16:16 | PC.NURSE ---
1616 40mg of etomidate given by Leo toure RN per Yoana Timmons MD order BP 110/64, HR 78, O2 98%, RR 25 1618 pt intubated at this time, 26 at the gum. Positive color change, bilateral breath sounds. radiology called 1619 HR 78, o2 95%, RR 22, 1623 3 attempts to obtain BP. BP of 69/38, Per cady figueroa order norepi titrated to 8mcg
--- NOTE | 2025-08-29 16:20 | XR_ITS ---
PROCEDURE INFORMATION: Exam: XR Chest Exam date and time: 08/29/2025 4:25 PM Age: 50 years old Clinical indication: Device placement; Other: Post intubation tube placement TECHNIQUE: Imaging protocol: Radiologic exam of the chest. Views: 1 view. COMPARISON: CR XR CHEST PORTABLE 08/29/2025 2:25 PM FINDINGS: Tubes, catheters and devices: The endotracheal tube is not identified on this image. Lungs: Opacity in the left hemithorax may represent atelectasis or pneumonia. . Pleural spaces: Unremarkable. No pleural effusion. No pneumothorax. Heart/Mediastinum: Cardiomegaly Bones/joints: Unremarkable. IMPRESSION: 1. Opacity in the left hemithorax may represent atelectasis or pneumonia. . 2. The endotracheal tube is not identified on this image.
--- NOTE | 2025-08-29 16:25 | PC.NURSE ---
Called for ICU transfer at 1624.
[2025-08-29] MEDS: EPINEPHrine 0.1 MG/ML 10ML SYRINGE (CRASH CART) 1 MG IV (16:29)
[2025-08-29] MEDS: FENTANYL 100MCG/2ML VIAL 100 MCG IV (16:31)
[2025-08-29 16:32] LABS: Alanine Aminotransferase 2516 U/L (12-78)
--- NOTE | 2025-08-29 16:40 | PC.NURSE ---
1640 3 sticks of ketamine returned to pyxis with Jasmin Yoder RN. 50 mg of ketamine wasted with Jasmin Yoder RN due to provider deciding to not use ketamine for intubation
--- NOTE | 2025-08-29 16:43 | PC.NURSE ---
Called [facility] for transport. Stated that patient was too big for the aircraft. Checked with [facility] and [facility]
--- NOTE | 2025-08-29 16:44 | PC.NURSE ---
x-ray attempting to obtain post intubation x-ray
[2025-08-29] MEDS: CALCIUM GLUC IN NACL, ISO-OSM 2 GM/100 ML BAG IV ×2 (17:04→19:55)
--- NOTE | 2025-08-29 17:04 | PC.NURSE ---
temp sensing placed by Sohail pedroza RN. minimal dark yellow urine noted. unable to sample at this time due to minimal drainage noted.
[2025-08-29] MEDS: SODIUM BICARB 8.4% 50ML SYRINGE (CRASH CART) 50 MEQ IV (17:13)
[2025-08-29 17:29] LABS: ABG HCO3 24.0 mmhg (22.0-26.0); ABG PO2 83.9 mmhg (80-100); ABG TCO2 26.0 mmhg (23-27)
[2025-08-29 17:32] LABS: VBG PH 7.05 mmol/L (7.31-7.41)
[2025-08-29 17:32] LABS: PEEP 10; Source Left Radial
[2025-08-29 17:33] LABS: Lactate Venous 6.0 mmol/L (0.4-2.0)
[2025-08-29 17:33] LABS: ABG PCO2 65.5 mmhg (35.0-45.0); ABG PH 7.18 mmol/L (7.35-7.45)
--- NOTE | 2025-08-29 17:36 | PC.NURSE ---
1732 40mg propofol given by cady figueroa drawn from infusion vial
--- NOTE | 2025-08-29 17:37 | PC.NURSE ---
propofol infusion started at 20 per provider order
[2025-08-29 17:47] LABS: Reflex Lactic Add Lactic Reflex
--- NOTE | 2025-08-29 18:21 | PC.NURSE ---
FSBS 136, J Paresh attempting to obtain additional IV access
--- NOTE | 2025-08-29 18:37 | PC.NURSE ---
Called for a bed status at and they said it would be a little while. Dr Timmons on the phone with [facility]
--- NOTE | 2025-08-29 18:44 | PC.NURSE ---
Jassi on the phone with for transfer
[2025-08-29] MEDS: FUROSEMIDE 100MG/10ML VIAL 100 MG IV (18:50)
--- NOTE | 2025-08-29 18:52 | PC.NURSE ---
[facility] advised they will call back
[2025-08-29 18:56] LABS: Microscopic, Urine URINE MICROSCOPIC (MICROSCOPIC)
[2025-08-29 18:57] LABS: Color,Urine YELLOW (Yellow); Glucose,Urine (UA) Negative (Negative); Ketones,Urine 1+ (Negative); Leukocyte Esterase,Urine TRACE (Negative); PH,Urine 5.0 (5.0-8.5); Protein,Urine 3+ (Negative); Urobilinogen,Urine 1.0 EU/dl (0.2)
[2025-08-29 19:05] LABS: Bacteria,Urine 3+ /lpf; Mucus,Urine 1+ /lpf; Specific Gravity, Urine 1.015 (1.005-1.030)
[2025-08-29 19:07] LABS: Bilirubin,Urine 2+ (Negative)
[2025-08-29 19:20] LABS: Barbiturates Screen,Urine Negative ng/ml (<200)
--- NOTE | 2025-08-29 19:21 | PC.NURSE ---
Recieved a call from pt transfer was denied at this time
[2025-08-29 19:22] LABS: Amphetamine/Metha Screen,Urine Negative ng/ml (<1000)
--- NOTE | 2025-08-29 19:22 | PC.NURSE ---
Called [facility] for an update on bed. stated they couldn't give me an exact place in line for a bed
[2025-08-29 19:23] LABS: Methadone Screen,Urine Negative ng/ml (<300)
[2025-08-29 19:24] LABS: Opiate Screen,Urine Negative ng/ml (<300)
[2025-08-29 19:25] LABS: Phencyclidine Screen,Urine Negative ng/ml (<25)
[2025-08-29 19:27] LABS: Benzodiazepines Screen,Urine Negative ng/ml (<200)
--- NOTE | 2025-08-29 19:28 | PC.NURSE ---
1800 Wrist restraints removed due to patient being properly sedated.
[2025-08-29 19:41] LABS: VBG HCO3 22.2 mmol/L (23-30); VBG PCO2 59.2 mmol/L (35-51); VBG PO2 90.6 mmol/L (28-40)
[2025-08-29 19:45] LABS: Lactate Venous 3.9 mmol/L (0.4-2.0); VBG PH 7.19 mmol/L (7.31-7.41)
[2025-08-29 20:29] LABS: Albumin Level 2.7 g/dl (3.5-5.0); Albumin/Globulin Ratio 0.6 (1.1-1.8); Alkaline Phosphatase 156 U/L (38-126); Anion Gap 20.3 mEq/L (5-15); Bilirubin,Total 3.0 mg/dl (0.2-1.3); Calcium 6.7 mg/dl (8.4-10.2); Carbon Dioxide 23 mmol/L (22.0-30.0); Chloride 94 mmol/L (98-107); Creatinine Clearance Estimated 11 mL/min (50-200); Estimated Glomerular Filt Rate 7 ml/min (>60); GFR (African American) 9 ML/MIN (>60); Globulin 4.2 g/dL (1.3-3.2); Glucose 156 mg/dl (74-100); Magnesium 1.7 mg/dl (1.6-2.3); Potassium 5.3 mmoL/L (3.5-5.1); Sodium 132 mmol/L (136-145); Total Protein,Serum 6.9 g/dl (6.3-8.2)
[2025-08-29 20:36] LABS: Blood Urea Nitrogen 102 mg/dl (9-20)
--- NOTE | 2025-08-29 20:36 | PC.NURSE ---
Spoke with to get an update on the bed, they are still waiting for the bed to be ready and they would give us a call back when the bed is ready.
[2025-08-29 20:37] LABS: Creatinine,Serum 8.10 mg/dl (0.66-1.25)
[2025-08-29 20:40] LABS: Hematocrit 54.1 % (42.0-52.0); Hemoglobin 16.6 g/dL (14.1-18.0); Immature Granulocytes % 1.0 %; Mean Corpuscular HGB Conc 30.7 g/dL (31.8-35.4); Mean Corpuscular Hemoglobin 27.7 pg (27.0-31.2); Mean Corpuscular Volume 90.2 fl (80-94); Nucleated Red Blood Cells % 0.6 %; Platelet Count 200 K/mm3 (142-424); Red Blood Count 6.00 M/mm3 (4.60-6.20); Red Cell Distribution Width-SD 53.2 fL; White Blood Count 19.9 K/mm3 (4.8-10.8)
--- NOTE | 2025-08-29 20:43 | PC.NURSE ---
Spoke with MDs about a consult with nephrology, they are going to call us back after they finish up a few other cases first
[2025-08-29 20:44] LABS: Aspartate Amino Transferase 1438 U/L (17-59)
--- NOTE | 2025-08-29 20:44 | PC.NURSE ---
patient got to unit at 2022
--- NOTE | 2025-08-29 20:49 | PC.NURSE ---
disregard previous note wrong patient
[2025-08-29 20:54] LABS: Alanine Aminotransferase 2404 U/L (12-78)
--- NOTE | 2025-08-29 20:56 | PC.NURSE ---
Pt is awaiting bed assignment per [facility]. No acute changes at this time. Pt is sedated and vitals are stable at this time.
[2025-08-29 21:20] LABS: Phosphorous 9.9 mg/dl (2.5-4.5)
[2025-08-29 21:28] LABS: Creatine Kinase 2589 U/L (55-170)
[2025-08-29 21:42] LABS: Troponin I 3.62 ng/ml (0.00-0.034)
[2025-08-31 15:46] LABS: Calcium, Ionized 3.4 mg/dL (4.5-5.6)
== END 2025-08-29 22:18 | disposition other institution (70) ==
PROVIDERS: Student in an Organized Health Care Education/Training Program; Emergency Provider Student in an Organized Health Care Education/Training Program
DX: A41.9 Sepsis, unspecified organism (principal); J96.21 Acute and chronic respiratory failure with hypoxia; J96.22 Acute and chronic respiratory failure with hypercapnia; N17.9 Acute kidney failure, unspecified; K72.00 Acute and subacute hepatic failure without coma; E66.01 Morbid (severe) obesity due to excess calories; E87.29 Other acidosis; R74.02 Elevation of levels of lactic acid dehydrogenase [LDH]; E83.51 Hypocalcemia; R79.1 Abnormal coagulation profile
CPT/HCPCS: 0223U; 31500; 36600; 71045; 80053; 80307; 80329; 81001; 82330; 82550; 82803; 83735; 83880; 84100; 84484; 85007; 85025; 85378; 86140; 86803; 87040; 87070; 87086; 87205; 87389; 93005; 96365; 96366; 96367; 96375; 99285; 99291; 99292; C1751; J0169; J0612; J0692; J1938; J2704; J3010; J3373; J7040; J7120